=== PATIENT | male | born 1960 | race Caucasian/White ===

== ENCOUNTER → 2021-05-03 07:33 | Outpatient (CLI) | payer OTHER, SELFPAY ==
--- NOTE | 2021-05-03 07:36 | CT_ITS ---
STUDY: CT ABDOMEN AND PELVIS WITHOUT CONTRAST REASON FOR EXAM: Male, 61 years old. MICROSCOPIC HEMATURIA UNCERTAIN ETIOLOGY RADIATION DOSAGE (If Supplied By Facility): CTDIvol = ( 9.55 ) mGy, DLP = ( 443.95 ) mGycm TECHNIQUE: Transaxial images were obtained from the dome of the diaphragm to the symphysis pubis without oral contrast, and without intravenous contrast. Sagittal and coronal images were reconstructed. Individualized dose optimization techniques were used for this CT. COMPARISON: None. FINDINGS: The visualized portions of lung bases demonstrate mild atelectatic changes. The visualized portions of the heart are within normal limits. 7 mm low-density lesion in the right lobe of the liver and additional 1 cm lesion left lobe difficult to characterize and probably representing small cysts. Normal gallbladder and extrahepatic biliary system. Normal spleen. Normal pancreas. Normal bilateral adrenal glands. Normal right kidney. 3 mm calcification in the upper pole of the left kidney could be parenchymal or may represent small nonobstructing stone. No evidence of hydronephrosis. Normal visualized stomach. Normal small intestine. Fecal retention. Colonic diverticulosis without evidence of acute diverticulitis. The appendix is visualized and appears normal. Mild atherosclerotic calcifications of the abdominal aorta without evidence of aneurysm. Normal inferior vena cava. Normal retroperitoneum. Normal urinary bladder. Slightly prominent prostate. There is a left-sided inguinal hernia containing adipose tissue. There are diffuse degenerative changes of the visualized lumbar spine. CT/Abdomen/Pelvis without Cont IMPRESSION: 1. 3 mm left renal calcification could represent parenchymal calcification or less likely small nonobstructing stone without evidence of hydronephrosis. 2. Diverticulosis without evidence of acute diverticulitis. 3. Otherwise no focal acute inflammatory process. 4. Probable small liver cysts. 5. Small left inguinal hernia containing fat. Electronically Signed: Shyam Charlton MD at 10:30 EDT Tel , Service support ,
== END ==
PROVIDERS: PCP Family Medicine; Visit Provider Family Medicine
DX: R31.29 Other microscopic hematuria (principal)
CPT/HCPCS: 74176

== ENCOUNTER → 2022-06-12 | Outpatient (CLI) | payer OTHER, SELFPAY ==
[2022-06-12 12:40] LABS: Absolute Lymphocyte Count 1.53 X10^3/uL (0.83-4.51); Absolute Neutrophil Count 2.9 X10^3/uL (2.0-7.7); Basophil# 0.05 X10^3/uL; Eosinophil# 0.25 X10^3/uL; Eosinophils% 4.8 % (0-5); Hematocrit 47.3 % (40-54); Hemoglobin 15.3 g/dL (13.0-16.5); Lymphocyte # 1.53 X10^3/ul (0.83-4.51); Lymphocyte % 29.4 % (19-41); Mean Corp Hgb Conc 32.3 g/dL (32-36); Mean Corpuscular Volume 89.8 fL (80-94); Monocyte# 0.46 X10^3/uL; Monocyte% 8.8 % (0-10); NRBC Flagged by Analyzer 0.6 % (0-5); Neutrophil # 2.89 X10^3/uL (2.7-7.7); Neutrophil % 55.6 % (47-70); Platelet Count 263 K/mm3 (150-450); RBC Distribution Width CV 12.8 % (11.6-14.6); RBC Distribution Width SD 42.1 fl (35.1-43.9); Red Blood Count 5.27 M/mm3 (4.6-6.2); White Blood Count 5.2 K/mm3 (4.4-11.0)
[2022-06-12 13:01] LABS: ALB/GLOB Ratio 1.1 RATIO (0.9-2.4); AST(SGOT) 17 U/L (15-37); Alanine Aminotransfer ALT/SGPT 44 U/L (16-61); Alkaline Phosphatase 60 U/L (45-117); Anion Gap 6 (5-15); BUN 21 mg/dL (7-18); BUN/Creat Ratio 18.1 RATIO (10-20); Calcium,Total 8.8 mg/dL (8.5-10.1); Chloride 102 mmol/L (98-107); Cholesterol 254 mg/dL (200); Creatinine, Serum 1.16 mg/dL (0.70-1.30); EST Glomerular Filtration Rate 68 mL/min (>60); Est Glom Filt Rate - Afr Amer 82 mL/min (>60); Globulin 3.5 g/dL (2.2-4.2); Glucose 109 mg/dL (74-106); High Density Lipoprotein 47 mg/dL; PSA,Total - Annual Screen 3.19 ng/mL (0.00-4.00); Potassium 4.1 mmol/L (3.5-5.1); Protein, Total 7.5 g/dL (6.4-8.2); Sodium Level 136 mmol/L (136-145); Triglycerides 151 mg/dL; Very Low Density Lipoprotein 30 mg/dL (5-40)
== END | disposition home or self-care (01) ==
PROVIDERS: PCP Family Medicine; Visit Provider Family Medicine
DX: Z00.00 Encounter for general adult medical examination without abnormal findings (principal); Z12.5 Encounter for screening for malignant neoplasm of prostate
CPT/HCPCS: 36415; 80053; 80061; 83036; 84153; 85025; G0103

== ENCOUNTER → 2023-09-28 | Outpatient (CLI) | payer OTHER, SELFPAY ==
--- NOTE | 2023-09-28 | CYSPIN_PTH ---
PATIENT: MUSHTAQ ADAMS LOC: [facility] U#:[id number] AGE/SX: 63/M ROOM: RE09/28/[address]: Dr. Anupam Estevez, : 1960 BED: DIS: 09/28/2023 SPEC #: [id number] RECD: 09/29/23 08:37 STATUS: JERMAIN PANTOJARonny #: [id number] ISAIAS: 09/28/23 00:[address]: Anupam Estevez DEPT: CYTOLOGY RECD BY: Gauri Pratt Tissues: Urine Procedures: Pap Stain (control) Special Stain Group II Cytospin Fluid HEADER /OPERATION: Not noted PRE-OP DIAGNOSIS: Intermittent gross and microscopic hematuria TISSUE SUBMITTED: Urine for cytology DIAGNOSIS CYTOLOGY Urine for cytology (cytospin): Positive for malignant cells, high grade urothelial carcinoma (HGUC), Pao system Category V. See comment. DEBORA/ 09/29/23 COMMENT Clinical correlation and appropriate follow up are necessary. The Pao System for urine cytology diagnostic categorization was used in the evaluation of this case. Case has been reviewed in consultation with Dr. Lin who concurs with the above diagnosis. IDC:AM CYTOLOGY STUDY Slides are reviewed. CYTOLOGY GROSS Received is 40 ml of yellow-cloudy fluid labeled with the patient's name and and designated per the requisition as urine. Submitted for cytology preparation. mr 09/28/23 TC: 0 CPT: 73096
[2023-09-28 18:03] LABS: Cytology, Body Fluid / CSF SEE PATHOLOGY REPORT
== END | disposition home or self-care (01) ==
PROVIDERS: PCP Family Medicine; Visit Provider Family Medicine
DX: C68.9 Malignant neoplasm of urinary organ, unspecified (principal); R31.9 Hematuria, unspecified
CPT/HCPCS: 88108; 88313

== ENCOUNTER → 2023-10-04 | Outpatient (CLI) | payer OTHER, SELFPAY ==
[2023-10-04 17:16] LABS: PSA,Total - Annual Screen 1.72 ng/mL (0.00-4.00)
== END | disposition home or self-care (01) ==
LOC: LAB 16:18
PROVIDERS: PCP Family Medicine; Referring Provider Urology; Visit Provider Urology
DX: Z12.5 Encounter for screening for malignant neoplasm of prostate (principal)
CPT/HCPCS: 36415; 84153; G0103

== ENCOUNTER → 2023-10-06 | Outpatient (CLI) | payer OTHER, SELFPAY | END | disposition home or self-care (01) | PROVIDERS: PCP Family Medicine; Visit Provider Urology | DX: R30.0 Dysuria (principal) | CPT/HCPCS: 87086 ==

== ENCOUNTER → 2023-10-12 | Outpatient (CLI) | payer OTHER, SELFPAY ==
--- NOTE | 2023-10-12 12:50 | CT_ITS ---
STUDY: CT ABDOMEN AND PELVIS WITH AND WITHOUT CONTRAST REASON FOR EXAM: Male, 63 years old. GROSS HEMATURIA. Newly diagnosed bladder cancer. RADIATION DOSAGE (If Supplied By Facility): CTDIvol = ( 15.46 ) mGy, DLP = ( 2376.33 ) mGycm TECHNIQUE: Transaxial images were obtained from the dome of the diaphragm to the symphysis pubis without oral contrast. IV 100mL Isovue-300 was administered. Sagittal and coronal images were reconstructed. Individualized dose optimization techniques were used for this CT. COMPARISON: Comparison is made with prior study May 03, 2021. FINDINGS: There is a 4.2 mm noncalcified nodule in the peripheral lateral aspect of the right lower lobe. This is unchanged. Minimal scarring at the lung bases. Coronary artery calcification. Stable 7 mm cyst in the right lobe of the liver as well as a 1 cm cyst in the left lobe. Normal gallbladder and extrahepatic biliary system. Normal spleen. Normal pancreas. Normal bilateral adrenal glands. Normal right kidney. Normal left kidney. Stable 3 mm nonobstructive calculus in the upper pole calyx of the left kidney. Normal visualized stomach. Normal small intestine. There are multiple colonic diverticula consistent with diverticulosis. The appendix is visualized and appears normal. There is scattered atherosclerotic calcification of the abdominal aorta, without a demonstrated aneurysm. Normal inferior vena cava. Normal retroperitoneum. Several masses are seen along the lateral wall of the urinary bladder on the right side. The largest is at the base of the bladder and measures 2.8 cm x 3 cm. This also evidence of a 1.2 cm mass at the base of the bladder on the left side. Prostatic calcifications. Small bilateral inguinal hernias containing fat. There are diffuse degenerative changes of the visualized lumbar spine. Subchondral sclerosis at the L4-L5 level. CT/CT Abd/Pelvis W/WO Contrast IMPRESSION: Multiple urinary bladder masses. Stable 4 mm noncalcified nodule in the right lower lobe. Stable hepatic cysts. Diverticulosis. Electronically Signed: Jed Turk MD at 14:10 EDT ,
[2023-10-12 13:41] LABS: CREATININE FINGERSTICK 1.6 mg/dL (0.70-1.30)
== END | disposition home or self-care (01) ==
PROVIDERS: PCP Family Medicine; Referring Provider Urology; Visit Provider Urology
DX: R31.0 Gross hematuria (principal)
CPT/HCPCS: 74178; Q9967

== ENCOUNTER 2023-10-13 10:15 | Observation (INO) | payer OTHER, SELFPAY ==
--- NOTE | 2023-10-12 12:48 | EKG12_ITS ---
Test Reason : PRE OP Blood Pressure : / mmHG Vent. Rate : 089 BPM Atrial Rate : 089 BPM P-R Int : 140 ms QRS Dur : 092 ms QT Int : 364 ms P-R-T Axes : 080 101 036 degrees QTc Int : 442 ms Normal sinus rhythm Rightward axis Cannot rule out old IW GA Confirmed by Atif Mooney ([id number]), video editor TERI CORDERO ([id number]) on 10/13/2023 6:37:46 AM Referred By: César Ríos Confirmed By:Atif Mooney
[2023-10-13] VITALS (13 sets, daily range): BP systolic 96–126; BP diastolic 45–88; PULSE 61–84; RESP 16–18; TEMP 35.9–36.9; O2SAT 94–100; BMI 26.4
[2023-10-13] MEDS: Lactated Ringers 1,000 ML 15 ML IV (06:58)
--- NOTE | 2023-10-13 08:08 | DCINST_ITS ---
Discharge Instructions Diet Discharge Diet: No restrictions Activity Discharge Activity: Return to Normal Activity and May Not Drive (while taking narcotic pain medications.) Dressing / Incision Call your doctor if you observe: Fever of 101 or Higher Follow Up Care Please Follow Up With: César Ríos MD When: Call [phone] for an appointment Test Results: Test results from this visit will be discussed in further detail at your follow- up appointment, if applicable. Discharge Plan Admission Primary Reason for Your Visit: Resection of bladder tumor Attending Provider: César Ríos Primary Care Provider: Anupam Estevez Discharge Orders/Prescriptions Prescriptions: New ciprofloxacin HCl [Cipro] 500 mg tablet 500 mg PO BID Qty: 10 0RF ibuprofen 600 mg tablet 600 mg PO Q6H PRN (Reason: pain) Qty: 20 0RF phenazopyridine [Pyridium] 100 mg tablet 100 mg PO TID Qty: 15 0RF Continued fluticasone propion-salmeterol [Advair Diskus] 1 PUFF inhaler 1 puff inhalation BID albuterol sulfate [Ventolin HFA] 1 INHALER inhaler 1 - 2 puff inhalation Q4H PRN PRN (Reason: Asthma) bupropion HCl 150 mg tablet extended release 24 hr 150 mg PO DAILY omeprazole 20 mg capsule,delayed release(DR/EC) 20 mg PO DAILY PRN (Reason: acid reflux) Other Ambulatory Orders: 12 Lead EKG (Routine) Timeframe: 20231012 Location: None Selected Ordered By: Dr. Berny Silva Referrals / Follow Up: César Ríos MD [Med Staff - Active Staff] - Anupam Estevez DO [Primary Care Provider] - Disposition Disposition (needs filled in before D/C Order can be placed): Home, Self Care
--- NOTE | 2023-10-13 08:08 | HP.PCM_ITS ---
HPI - General General Date of Service: 10/13/23 Chief Complaint: Bladder cancer HPI Narrative MUSHTAQ ADAMS, is a 63 M who presents for a transurethral resection of a very large bladder tumor in the right lateral wall the bladder [facility] Medical History (Updated 10/11/23 @ 08:24 by Dora Gracia) Alcohol use Anxiety Arthritis Asthma Bladder disease Cancer Depression Heartburn History of stress test Non-smoker Tinnitus Home Medications albuterol sulfate 90 mcg/actuation aerosol inhaler (Ventolin HFA) 1 - 2 puff inhalation Q4H PRN PRN Asthma 08/18/16 [History Last Taken Unknown] fluticasone 250 mcg-salmeterol 50 mcg/dose blistr powdr for inhalation (Advair Diskus) 1 puff inhalation BID 08/18/16 [History Last Taken 08/25/16 05:30] bupropion HCl 150 mg 24 hr tablet, extended release 150 mg PO DAILY mood 10/11/23 [History Last Taken Unknown] omeprazole 20 mg capsule,delayed release 20 mg PO DAILY PRN acid reflux 10/11/23 [History Last Taken 10/13/23 05:30] ciprofloxacin HCl 500 mg tablet (Cipro) 500 mg PO BID #10 tabs 10/13/23 [Rx Last Taken Unknown] ibuprofen 600 mg tablet 600 mg PO Q6H PRN pain #20 tabs 10/13/23 [Rx Last Taken Unknown] phenazopyridine 100 mg tablet (Pyridium) 100 mg PO TID #15 tabs 10/13/23 [Rx Last Taken Unknown] Allergy/AdvReac Type Severity Reaction Status Date / Time No Known Allergies Allergy Verified 10/13/23 06:40 Surgical History (Updated 10/11/23 @ 08:11 by Dora Gracia) History of adenoidectomy History of colonoscopy History of shoulder surgery History of tonsillectomy Social History Smoking Status: Never smoker Vital Signs Vital Signs Vital Signs: 10/13/23 06:42 10/13/23 06:42 Temperature 98.3 F Temperature Source Temporal Pulse Rate 84 Respiratory Rate 16 Respiratory Pattern Normal Blood Pressure 106/88 H Blood Pressure Mean 94 Blood Pressure Source Monitor Blood Pressure Position Sitting Blood Pressure Location Left Arm Pulse Ox 98 Oxygen Delivery Method Room Air Weight Weight: 86.183 kg Body Mass Index (BMI) 26.4
[2023-10-13] MEDS: Cefazolin 2 GM in 0.9% Normal Saline (100mL Bag) 100 ML IV (08:16)
--- NOTE | 2023-10-13 08:25 | BLB_PTH ---
PATIENT: MUSHTAQ ADAMS LOC: [facility] U#:[id number] AGE/SX: 63/M ROOM: FL305 RE10/13/[address]: Dr. César Ríos MD : 1960 BED: 1 DIS: 10/14/2023 SPEC #: [id number] RECD: 10/13/23 10:16 STATUS: JERMAIN DOE #: [id number] ISAIAS: 10/13/23 08:[address]: César Ríos DEPT: SURGICAL PATHOLOGY RECD BY: Gauri Pratt ENTERED: 10/13/23 11:24 SP TYPE: TURB OTHR DR: Dr. Anupam Estevez, DO Tissues: Urinary bladder, NOS Procedures: Surgery Specimen Level V HEADER OPERATION: Transurethral resection of bladder tumor PRE-OP DIAGNOSIS: Bladder cancer TISSUE SUBMITTED: Bladder tumor MICROSCOPIC DIAGNOSIS Bladder tumor, Transurethral resection: Papillary urothelial carcinoma, invasive. See cancer summary in comment section. SJ/mr 10/14/23 COMMENT BLADDER CANCER (TUR) SUMMARY Procedure: Transurethral resection of bladder tumor (TURBT) Tumor site: Not specified Histologic type: Papillary urothelial carcinoma, invasive Associated epithelial lesions: None identified Histologic grade: Low grade (1-2/3) Tumor configuration: Papillary with focal area of endophytic pattern. Muscularis propria presence: muscularis propria (detrusor muscle) Present and free of tumor. Lymphvascular invasion: Not identified. Tumor extension: Tumor focally invades lamina propria (subepithelial connective tissue). Additional pathologic findings: Chronic inflammation. PATHOLOGIC STAGE: pT1 pNx pMx The above summary is in compliance with [employer] (CAP) Cancer Protocols Checklist and [place] Joint Committee on Cancer (AJCC), Staging Manual, 8th Ed. Case has been reviewed in consultation with Dr. Lin who concurs with the above diagnosis. IDC:AM MICROSCOPIC DESCRIPTION Slides are reviewed. GROSS DESCRIPTION Received in fixative is one container labeled with the patient's name and designated Bladder tumor. The specimen consists of multiple irregular fragments of pink-brown soft tissue that in aggregate measure 7.5 x 3.0 x 1.5 cm. The entire specimen is submitted in twelve cassettes. DEBORA/ 10/13/23 TC:0 CPT: 95655
[2023-10-13] MEDS: MitoMYcin 40 MG in Syringe 1 EACH 2400 MG INSTILLAT (09:49)
--- NOTE | 2023-10-13 09:56 | OP.PCM_ITS ---
Report of Operation Date of Procedure: 10/13/23 Pre-Operative Diagnosis: Large bladder tumor extensive throughout the bladder Post-Operative Diagnosis: The same Surgery/Procedure Performed:: Transurethral resection of a very large bladder tumor instillation Mitomycin-C Description of Surgical Findings:: The gentleman who presented to my office with history of gross hematuria, cytology was positive, on cystoscopy he had a very large tumor starting in the midline of the bladder working the way extensively all the way across to the right lateral wall the bladder up to the dome of the bladder and deep posterior to the bladder so today he presents for resection this can be of a large resection. Patient was taken back to the operating room at a smooth induction of anesthesia he was placed in dorsolithotomy position. The penis and testicles were prepped and draped in usual sterile fashion went into the bladder with a 26 Sinhala continuous-flow resectoscope inspected the bladder and the left and right ureteral orifice were uninvolved but he had an extensive tumor starting in the midline posterior of the bladder working its way all the way laterally all the way up to the dome and all the way posteriorly the resection site was extensive probably about 7 cm x 6 cm x 3 cm in total size. Basically just a large carpet of tumor working its way from the mid line the bladder all the way laterally all the way to the dome although a posterior I started at the edge of the tumor and started resecting down to the bladder muscle fibers as I went laterally the tumor was we did an systematic fashion but I got as a got laterally then the tumor got more difficult to resect as it is very difficult to reach the tumor with the resectoscope at the posterior bladder manually extensively and then I then went to the dome and got even harder to push the bladder dome down to reach the tumor with the resectoscope bladder pressure put into the bladder to get it down and resecting the bladder tumor is extensively large resection that there was a several areas of the bladder muscle was thinned out pretty significantly and also in the posterior area is very difficult at the end extensive amount of bleeding from other resection at the take a long time to cauterize the bleeder we did use suction to help put the resectoscope with suction this did help with visualization eventually was able to get all the bleeding stopped as best as I could tell it was a complete resection but was such a large tumor very possible and likely may have some small tumor still in the bladder the just were not visible not seen because of the extensiveness of this tumor so I will plan to do a second stage resection on him in about a month 4 to 6 weeks for another check at the end of the resection all the tumors were Ellik out of the bladder hemostasis was obtained put a 20 Sinhala catheter in the bladder and we put Mitomycin-C in the bladder for an hour of post resection instillation and he will be kept in the hospital overnight for observation because of the deep resection and then we will plan to send him home with a catheter for about 10 days to let the resection heal up. Patient anesthetic was reversed he is taken back to the PACU in good condition. Surgeon: César Ríos Type of Anesthesia: General Drains: 20fr Estimated Blood Loss (mL): 100 Admit VTE Documentation VTE Present on Admission: No VTE Mechan Device Prophylaxis: SCD's VTE Pharm Prophylaxis ordered?: No
--- NOTE | 2023-10-13 11:13 | SUR.PHASEI ---
1102 CLAMP REMOVED FROM JAMES CATHETER, RED URINE IMMEDIATELY BEGINS DRAINING
[2023-10-13] MEDS: Ketorolac 15 MG/ML Vial IV (11:58)
[2023-10-13] MEDS: 0.9% Normal Saline (1000mL) 1,000 ML 125 ML IV ×2 (12:35→20:20)
[2023-10-13] MEDS: Acetaminophen 325 MG Tablet 650 MG PO ×2 (16:49→20:57)
[2023-10-13] MEDS: Ciprofloxacin 400 MG/200 ML BAG 200 MG IV (20:58)
[2023-10-14 04:03] VITALS: BP 109/55; PULSE 73; RESP 18; TEMP 37.2; O2SAT 92
[2023-10-14] MEDS: 0.9% Normal Saline (1000mL) 1,000 ML 125 ML IV (04:04)
[2023-10-14] MEDS: Acetaminophen 325 MG Tablet 650 MG PO (04:08)
--- NOTE | 2023-10-14 07:37 | PCM.PN.GU ---
Subjective Subjective Status post transurethral resection of a very large bladder tumor he to go home with a Bryson catheter to leg bag and large bag. Objective Data Objective Data Vital Signs: Vital Signs Temp Pulse Resp BP Pulse Ox O2 Del Method 98.9 F 73 18 109/55 L 92 Room Air 10/14/23 04:03 10/14/23 04:03 10/14/23 04:03 10/14/23 04:03 10/14/23 04:03 10/14/23 04:03 Oxygen Delivery Method Room Air Weight: 86.2 kg Body Mass Index (BMI) 26.4 Intake & Output: Intake and Output for Last 24 Hours 10/12/23 10/13/23 10/14/23 23:59 23:59 23:59 Intake Total 4376.92 / 4376.92 1758.33 / 1758.33 Output Total 4300 / 4300 2300 / 2300 Balance 76.92 / 76.92 -541.67 / -541.67
[2023-10-14 08:04] VITALS: BP 107/60; PULSE 77; RESP 16; TEMP 36.6; O2SAT 96
[2023-10-14 08:07] VITALS: BP 110/78; PULSE 77; RESP 16; TEMP 36.6; O2SAT 98
[2023-10-14] MEDS: Tolterodine Tartrate 4 MG CAP.SA PO (09:40)
[2023-10-14] MEDS: Ciprofloxacin 400 MG/200 ML BAG 200 MG IV (09:40)
[2023-10-14] MEDS: buPROPion (XL) 150 MG TABLET.XL PO (09:41)
--- NOTE | 2023-10-14 10:47 | CASEMGMT ---
BENI GARRIDO NOTE: Pt being discharged. RN CM to room. Pt resting in bed. @ bedside. They state F/C teaching has been completed and they feel comfortable w/managing it. They deny having any discharge planning needs or concerns. Hermes BSN RN CM
[2023-10-14] MEDS: oxyCODONE 5 MG Tablet PO (10:56)
== END 2023-10-14 11:51 | disposition home or self-care (01) ==
LOC: SDC 11:50 → MS3 11:50
PROVIDERS: Admitting Provider Urology; PCP Family Medicine; Referring Provider Urology; Visit Provider Urology
PROC: 0T5B8ZZ Destruction of Bladder, Via Natural or Artificial Opening Endoscopic (ICD-10-PCS; CPT 51720; principal; 2023-10-13 08:15)
DX: C67.9 Malignant neoplasm of bladder, unspecified (principal); M19.90 Unspecified osteoarthritis, unspecified site; J45.909 Unspecified asthma, uncomplicated; F32.A Depression, unspecified; Z79.899 Other long term (current) drug therapy; F41.9 Anxiety disorder, unspecified
CPT/HCPCS: 52240; 51720; 00912; 88307; 93005; 96361; 96365; 96366; 97802; 99221; J7030; J9280; G0378; J0744; J2405

== ENCOUNTER 2023-11-19 08:18 | Day surgery (SDC) | payer OTHER, SELFPAY ==
[2023-11-19] VITALS (10 sets, daily range): BP systolic 113–141; BP diastolic 64–81; PULSE 70–93; RESP 16; TEMP 36.1–37; O2SAT 94–100; BMI 26.2
--- NOTE | 2023-11-19 | IMM_PTH ---
PATIENT: MUSHTAQ ADAMS [place] [facility] [id number] AGE/SX: 63/M ROOM: RE11/19/[address]: Dr. César Ríos MD : 1960 BED: DIS: 11/19/2023 SPEC #: [id number] RECD: 11/22/23 13:38 STATUS: JERMAIN REQ #: [id number] ISAIAS: 11/19/23 00:[address]: César Ríos DEPT: IMMUNOHISTOCHEMISTRY RECD BY: Andreas Baez ENTERED: 11/22/23 13:39 SP TYPE: IMMUNO OTHR DR: Dr. Anupam Estevez, DO Tissues: Urinary bladder, NOS Procedures: SMA (add) CD31 (add) CK20 (add) CK7 (add) CK8 (add) DESMIN (add) KI-67 (add) SMM (add) FACTOR VIII (add) Pankeratin (initial) PHYSICIAN & INSTITUTION [place] [id number] SPECIMEN INFORMATION: Tissue Source: Bladder tumor Clinical Info: Bladder cancer Specimen Number: [id number] CPT code: 14058,24867d9 METHODOLOGY: Deparaffinized sections of prefer/formalin-fixed tissue or PAP/DQ stained slides are incubated with monoclonal/polyclonal antibodies/oligonucleotide probes. Localization is made via biotin free immunoperoxidase method. Appropriate controls are performed and reacted as expected. Results on target cell population are indicated in the following table: RESULTS: ANTIBODY / CLONE RESULT AE1-3 (AE1/AE3/PCK26) positive CK7 (OV-TL12/30) negative, rare CK8 (54sqmcQ13) positive, rare CK20 (KS20.8) negative CD31 (DEVIN/70A) negative Factor VIII (R Ag) negative Actin (1A4) negative Myosin (simms1) negative Desmin (CE-R-11) negative Ki-67 (30-9) positive, 15% P53 (DO-7) negative, null pattern These tests were developed and their performance characteristics determined by [facility]. They may not have been cleared or approved by the U.S. Food and Drug Administration. The FDA has determined that such clearance or approval is not necessary. The above immunohistochemical/dualISH markers are ordered and reviewed by the Pathologist. INTERPRETATION: Bladder tumor, transurethral resection: Rare atypical epithelial cells present. Necortic tissue debris. AM/mr 11/23/23
[2023-11-19] MEDS: Lactated Ringers 1,000 ML 15 ML IV ×2 (09:04→11:49)
[2023-11-19] MEDS: Cefazolin 2 GM in 0.9% Normal Saline (100mL Bag) 100 ML IV (09:56)
--- NOTE | 2023-11-19 10:04 | DCINST_ITS ---
Discharge Instructions Diet Discharge Diet: No restrictions Activity Discharge Activity: Return to Normal Activity and May Not Drive (while taking narcotic pain medications.) Dressing / Incision Call your doctor if you observe: Fever of 101 or Higher Follow Up Care Please Follow Up With: César Ríos MD When: Call [phone] for an appointment Test Results: Test results from this visit will be discussed in further detail at your follow- up appointment, if applicable. Discharge Plan Admission Primary Reason for Your Visit: turbt Attending Provider: César Ríos Primary Care Provider: Anupam Estevez Discharge Orders/Prescriptions Prescriptions: New tamsulosin [Flomax] 0.4 mg capsule 0.4 mg PO DAILY Qty: 10 0RF phenazopyridine [Pyridium] 200 mg tablet 200 mg PO TID PRN (Reason: burning) Qty: 15 0RF ciprofloxacin HCl [Cipro] 500 mg tablet 500 mg PO BID Qty: 10 0RF Continued fluticasone propion-salmeterol [Advair Diskus] 1 PUFF inhaler 1 puff inhalation BID albuterol sulfate [Ventolin HFA] 1 INHALER inhaler 1 - 2 puff inhalation Q4H PRN PRN (Reason: Asthma) bupropion HCl 150 mg tablet extended release 24 hr 150 mg PO DAILY omeprazole 20 mg capsule,delayed release(DR/EC) 20 mg PO DAILY PRN (Reason: acid reflux) ibuprofen 600 mg tablet 600 mg PO Q6H PRN (Reason: pain) Qty: 20 0RF Referrals / Follow Up: César Ríos MD [Med Staff - Active Staff] - Anupam Estevez DO [Primary Care Provider] - Disposition Disposition (needs filled in before D/C Order can be placed): Home, Self Care
--- NOTE | 2023-11-19 10:04 | PCM.HP.STD ---
HPI - General General Date of Service: 11/19/23 Chief Complaint: Bladder cancer HPI Narrative MUSHTAQ ADAMS, is a 63 M who presents for second stage transurethral section of the bladder cancer had a large tumor resected before his extensive mount of resection organ to do a second look TUR BT [facility] Medical History Alcohol use Anxiety Arthritis Asthma Bladder disease Cancer Depression Heartburn History of stress test Non-smoker Tinnitus Home Medications albuterol sulfate 90 mcg/actuation aerosol inhaler (Ventolin HFA) 1 - 2 puff inhalation Q4H PRN PRN Asthma 08/18/16 [History Last Taken Unknown] fluticasone 250 mcg-salmeterol 50 mcg/dose blistr powdr for inhalation (Advair Diskus) 1 puff inhalation BID 08/18/16 [History Last Taken 08/25/16 05:30] bupropion HCl 150 mg 24 hr tablet, extended release 150 mg PO DAILY mood 10/11/23 [History Last Taken Unknown] omeprazole 20 mg capsule,delayed release 20 mg PO DAILY PRN acid reflux 10/11/23 [History Last Taken 11/19/23] ibuprofen 600 mg tablet 600 mg PO Q6H PRN pain #20 tabs 10/13/23 [Rx Last Taken Unknown] ciprofloxacin HCl 500 mg tablet (Cipro) 500 mg PO BID #10 tabs 11/19/23 [Rx Last Taken Unknown] phenazopyridine 200 mg tablet (Pyridium) 200 mg PO TID PRN burning 15 doses #15 tabs 11/19/23 [Rx Last Taken Unknown] tamsulosin 0.4 mg capsule (Flomax) 0.4 mg PO DAILY #10 caps 11/19/23 [Rx Last Taken Unknown] Allergy/AdvReac Type Severity Reaction Status Date / Time No Known Allergies Allergy Verified 11/09/23 14:58 Surgical History (Updated 11/09/23 @ 15:03 by Christine Mckinley) H/O transurethral resection of bladder tumor (TURBT) History of adenoidectomy History of colonoscopy History of shoulder surgery History of tonsillectomy Social History Smoking Status: Never smoker Vital Signs Vital Signs Vital Signs: 11/19/23 08:50 11/19/23 08:50 Temperature 98.6 F Temperature Source Temporal Pulse Rate 78 Respiratory Rate 16 Respiratory Pattern Normal Blood Pressure 119/74 Blood Pressure Mean 89 Blood Pressure Source Monitor Blood Pressure Position Semi-Fowlers Blood Pressure Location Left Arm Pulse Ox 100 Oxygen Delivery Method Room Air Weight Weight: 85.4 kg Body Mass Index (BMI) 26.2
--- NOTE | 2023-11-19 10:15 | BLB_PTH ---
PATIENT: MUSHTAQ ADAMS LOC: [facility] [place] U#:[id number] AGE/SX: 63/M ROOM: RE11/19/[address]: Dr. César Ríos MD : 1960 BED: DIS: 11/19/2023 SPEC #: [id number] RECD: 11/19/23 11:00 STATUS: JERMAIN DOE #: [id number] ISAIAS: 11/19/23 10:[address]: César Ríos DEPT: SURGICAL PATHOLOGY RECD BY: Janes Cadena ENTERED: 11/19/23 11:41 SP TYPE: TURB OTHR DR: Dr. Anupam Estevez, DO Tissues: Urinary bladder, NOS Procedures: Surgery Specimen Level V HEADER OPERATION: Transurethral resection of bladder tumor PRE-OP DIAGNOSIS: Bladder cancer TISSUE SUBMITTED: Bladder tumor MICROSCOPIC DIAGNOSIS Urinary bladder, transurethral resection: Rare atypical epithelial cells present. Extensive cellular necrosis. Acute and chronic inflammation. AM/mr 11/23/2023 COMMENT Immunohistochemistry ([id number]) supports the above diagnosis. MICROSCOPIC DESCRIPTION Slides are reviewed. GROSS DESCRIPTION Received in fixative is one container labeled with the patient's name and designated Bladder tumor. The specimen consists of multiple irregular fragments of light langford soft tissue that in aggregate measure 2.0 x 1.5 x 0.3 cm. The specimen is totally submitted in one cassette. DEBORA/ 11/19/2023 TC:0 CPT: 85415
[2023-11-19] MEDS: MitoMYcin 40 MG in Syringe 1 EACH 2400 MG INSTILLAT (10:27)
--- NOTE | 2023-11-19 10:30 | PCM.OPRPT ---
Report of Operation Date of Procedure: 11/19/23 Pre-Operative Diagnosis: Bladder cancer second stage resection Post-Operative Diagnosis: The same Surgery/Procedure Performed:: Transurethral section of bladder tumor instillation Mitomycin-C Description of Surgical Findings:: Patient presented to the hospital for treatment of a tumor that was found in the bladder with a very large bladder tumor. Patient understands is possible it may not be able to resect the entire tumor. Patient also understands is possible that the patient may need multiple procedures or more invasive procedures to cure him of this cancer. Patient was taken back to the operating room after smooth induction of anesthesia the patient was placed supine on the table. The patient was placed in dorsolithotomy position. The urethra and genitals prepped and draped in usual sterile fashion. I went into the bladder with a 30 degree lens and a cystoscope was performed and identified the tumor the tumors which was about 5 centimeters in size and occupying mostly the lateral wall of the bladder. I then switched over to the 70 degree lens and inspected the rest of the bladder with a 70 degree lens to make sure there is no other tumors in the bladder and to identify all the tumor locations. The right and left ureteral orifice were identified. The tumor was not involved in the ureteral orifices. I then placed the Olympus bipolar resectoscope with a large loop into the bladder. I then started resected the tumor and started superficially shaving small little pieces working my way to the base of the tumor. As I went along I then cauterize any bleeders that were encountered during the resection. The tumor pieces were then flushed out of the bladder and continued resecting the tumor until finally I got down to the base of the tumor and the muscle of the bladder was then identified a small little bit of muscle was taken with the resection. The Ellik was used then to evacuate all the tumor pieces out of the bladder. I then cauterized extensively the tumor base and also circumferentially around where the tumor was. Again we made sure to evacuate all the pieces out the bladder. I made sure there was no more bleeding from the base of the bladder and then over the tumor pieces were then evacuated out and sent off as a specimen. After the resection of the entire tumor was completed then treatment with Mitomycin-C was performed. We then placed the catheter in the bladder and the patient was taken back to the PACU in stable condition. Surgeon: César Ríos Type of Anesthesia: General Drains: 18 fr, Admit VTE Documentation VTE Present on Admission: No VTE Mechan Device Prophylaxis: SCD's VTE Pharm Prophylaxis ordered?: No
[2023-11-19] MEDS: Ketorolac 15 MG/ML Vial IV (10:54)
== END 2023-11-19 14:56 | disposition home or self-care (01) ==
LOC: SDC 08:23 → AC 08:23
PROVIDERS: PCP Family Medicine; Referring Provider Urology; Visit Provider Urology
PROC: 0T5B8ZZ Destruction of Bladder, Via Natural or Artificial Opening Endoscopic (ICD-10-PCS; CPT 51720; principal; 2023-11-19 10:05)
DX: C67.9 Malignant neoplasm of bladder, unspecified (principal); J45.909 Unspecified asthma, uncomplicated; N32.89 Other specified disorders of bladder; N30.20 Other chronic cystitis without hematuria
CPT/HCPCS: 52240; 00912; 87086; 88307; 88341; 88342; J7120; J9280; J2405

== ENCOUNTER → 2023-12-07 | Outpatient (CLI) | payer OTHER, SELFPAY | END | disposition home or self-care (01) | PROVIDERS: PCP Family Medicine; Visit Provider Urology | DX: R31.0 Gross hematuria (principal) | CPT/HCPCS: 87077; 87086; 87088; 87186 ==

== ENCOUNTER → 2024-05-19 | Outpatient (CLI) | payer OTHER, SELFPAY ==
[2024-05-19 12:23] LABS: Color, Urine Yellow (Yellow); Glucose, Dipstick Normal (Normal); Ketone-Dipstick Negative (Negative); Leukocyte Esterase-Dipstick Negative /ul (Negative); Nitrite-Dipstick Negative (Negative); Occult Blood-Urine Negative /ul (Negative); Protein-Dipstick Negative (Negative); Specific Gravity, Urine 1.005 (1.002-1.030); Urine Bilirubin Dipstick Negative (Negative); Urine Clarity Clear (Clear); Urine Urobilinogen Normal (Normal)
[2024-05-19 12:42] LABS: Absolute Lymphocyte Count 1.32 X10^3/uL (0.83-4.51); Absolute Neutrophil Count 3.5 X10^3/uL (2.0-7.7); Basophil# 0.04 X10^3/uL; Basophil% 0.7 % (0-1); Eosinophil# 0.44 X10^3/uL; Eosinophils% 7.5 % (0-5); Hematocrit 42.1 % (40-54); Hemoglobin 13.6 g/dL (13.0-16.5); Lymphocyte # 1.32 X10^3/ul (0.83-4.51); Lymphocyte % 22.4 % (19-41); Mean Corp Hgb Conc 32.3 g/dL (32-36); Mean Corpuscular Hgb 28.5 pg (27.0-32.0); Mean Corpuscular Volume 88.3 fL (80-94); Mean Platelet Vol. 9.3 fl (6.2-12.0); Monocyte# 0.62 X10^3/uL; Monocyte% 10.5 % (0-10); NRBC Flagged by Analyzer 0 % (0-5); Neutrophil # 3.46 X10^3/uL (2.7-7.7); Neutrophil % 58.6 % (47-70); Platelet Count 226 K/mm3 (150-450); RBC Distribution Width CV 13.9 % (11.6-14.6); RBC Distribution Width SD 45.3 fl (35.1-43.9); Red Blood Count 4.77 M/mm3 (4.6-6.2); White Blood Count 5.9 K/mm3 (4.4-11.0)
[2024-05-19 13:04] LABS: ALB/GLOB Ratio 1.3 RATIO (0.9-2.4); AST(SGOT) 19 U/L (15-37); Alanine Aminotransfer ALT/SGPT 27 U/L (16-61); Albumin, Serum 4.3 g/dL (3.2-5.0); Alkaline Phosphatase 71 U/L (45-117); Anion Gap 5 (5-15); BUN 20 mg/dL (7-18); BUN/Creat Ratio 18.7 RATIO (10-20); Chloride 103 mmol/L (98-107); Cholesterol 269 mg/dL (200); Creatinine, Serum 1.07 mg/dL (0.70-1.30); EST Glomerular Filtration Rate 74 mL/min (>60); Est Glom Filt Rate - Afr Amer 89 mL/min (>60); Globulin 3.3 g/dL (2.2-4.2); Glucose 100 mg/dL (74-106); High Density Lipoprotein 51 mg/dL; PSA,Total- Diagnostic 2.07 ng/mL (0.0-4.0); Potassium 4.2 mmol/L (3.5-5.1); Protein, Total 7.6 g/dL (6.4-8.2); Sodium Level 137 mmol/L (136-145); Triglycerides 103 mg/dL; Very Low Density Lipoprotein 21 mg/dL (5-40)
[2024-05-19 13:32] LABS: Hemoglobin A1c 5.9 % (3.8-5.6)
== END | disposition home or self-care (01) ==
LOC: MTLAB 09:58
PROVIDERS: PCP Family Medicine; Referring Provider Family Medicine; Visit Provider Family Medicine
DX: Z00.00 Encounter for general adult medical examination without abnormal findings (principal); R73.01 Impaired fasting glucose; R30.0 Dysuria; Z85.51 Personal history of malignant neoplasm of bladder
CPT/HCPCS: 36415; 80053; 80061; 81002; 83036; 84153; 85025; 87086

== ENCOUNTER 2024-07-19 06:38 | Day surgery (SDC) | payer OTHER, SELFPAY ==
[2024-07-19] VITALS (8 sets, daily range): BP systolic 113–141; BP diastolic 68–103; PULSE 68–82; RESP 16–20; TEMP 36.7–37.1; O2SAT 92–98; BMI 27.6
--- NOTE | 2024-07-19 08:02 | PCM.HP.STD ---
HPI - General General Date of Service: 07/19/24 Chief Complaint: bladder cancer HPI Narrative MUSHTAQ ADAMS, is a 64 M who presents for cysto biopsy of lesion and fulguration, h/o bladder cancer. s/p resection of v large mass and BCG therapy PFSH Medical History Loss of hearing Wears glasses Bladder disease Tinnitus Cancer Anxiety Depression Arthritis Heartburn Non-smoker Asthma History of stress test Home Medications ?Medication ?Instructions ?Recorded ?Last Taken ?Type albuterol sulfate 90 mcg/actuation 1 - 2 puff inhalation Q4H PRN PRN 08/18/16 Unknown History aerosol inhaler (Ventolin HFA) Asthma fluticasone 250 mcg-salmeterol 50 1 puff inhalation BID 08/18/16 07/19/24 History mcg/dose blistr powdr for inhalation (Advair Diskus) omeprazole 20 mg capsule,delayed 20 mg PO DAILY PRN acid reflux 10/11/23 07/19/24 History release ibuprofen 600 mg tablet 600 mg PO Q6H PRN pain #20 tabs 10/13/23 Unknown Rx Allergy/AdvReac Type Severity Reaction Status Date / Time No Known Allergies Allergy Verified 07/19/24 07:09 Surgical History H/O transurethral resection of bladder tumor (TURBT) History of colonoscopy History of tonsillectomy History of adenoidectomy History of shoulder surgery Social History Smoking Status: Never smoker Vital Signs Vital Signs Vital Signs: 07/19/24 07:16 07/19/24 07:16 Temperature 98.8 F Temperature Source Temporal Pulse Rate 68 Respiratory Rate 16 Respiratory Pattern Normal Blood Pressure 141/68 H Blood Pressure Mean 92 Blood Pressure Source Monitor Blood Pressure Position Semi-Fowlers Blood Pressure Location Right Arm Pulse Ox 98 Oxygen Delivery Method Room Air Weight Weight: 90 kg Body Mass Index (BMI) 27.6
[2024-07-19] MEDS: 0.9% Normal Saline (1000mL) 1,000 ML 15 ML IV (08:15)
--- NOTE | 2024-07-19 08:45 | BLA_PTH ---
PATIENT: MUSHTAQ ADAMS LOC: [facility] – [place] U#:[id number] AGE/SX: 64/M ROOM: RE07/19/[address]: Dr. César Ríos MD : 1960 BED: DIS: 07/19/2024 SPEC #: [id number] RECD: 07/19/24 11:21 STATUS: JERMAIN DOE #: [id number] ISAIAS: 07/19/24 08:[address]: César Ríos DEPT: SURGICAL PATHOLOGY RECD BY: Janes Cadena ENTERED: 07/19/24 12:13 SP TYPE: BLADDER BX OTHR DR: Dr. Anupam Estevez, DO Tissues: Urinary bladder, NOS Procedures: Surgery Specimen Level IV HEADER OPERATION: Fulguration, cysto, biopsy PRE-OP DIAGNOSIS: Bladder cancer TISSUE SUBMITTED: Bladder lesion MICROSCOPIC DIAGNOSIS Bladder lesion, biopsy: A fragment of urothelial mucosa with chronic inflammation. Negative for malignancy. See comment. SJ.mr 07/20/2024 COMMENT Epithelium is denuded in most of the specimen. Correlation with clinical, cystoscopic findings and appropriate follow up are necessary. MICROSCOPIC DESCRIPTION Slides are reviewed. GROSS DESCRIPTION Received in fixative is one container labeled with the patient's name and designated Bladder lesion. The specimen consists of one irregular fragment of light langford soft tissue that measures 0.2 x 0.2 x 0.1 cm. The specimen is totally submitted in one cassette. 07/19/2024 TC:3 CPT:42243
--- NOTE | 2024-07-19 08:50 | PRE.ANES_ITS ---
ASA Classification* ASA Classification ASA Classification: 2 Assessment & Plan Anesthesia* Anesthesia Assessment Anesthesia Assessment: Discussed sedation and/or anesthesia options, risks, benefits, and alternatives with patient/parents/legal guardian/POA. Questions invited. The patient/parents/legal guardian/POA seems to understand and agrees to proceed with anesthesia plan. Reviewed the physical assessment, medical history, allergy history and patient home medications list prior to surgery/procedure/anesthetic and documented any changes. Performed airway and anesthesia risk assessments. Anesthesia Type Anesthesia Type: General Anesthesia Focused Assessment* Temperature: 98.8 F Pulse Rate: 68 Blood Pressure: 141/68 Respiratory Rate: 16 Pulse Ox: 98 Airway Assessment Mouth opens: >3 cm Mallampati Score: II Focused Labs Anesthesia Preop lab: CBC WBC 5.9 K/mm3 (4.4-11.0) 05/19/24 10:09 RBC 4.77 M/mm3 (4.6-6.2) 05/19/24 10:09 Hgb 13.6 g/dL (13.0-16.5) 05/19/24 10:09 Hct 42.1 % (40-54) 05/19/24 10:09 Plt Count 226 K/mm3 (150-450) 05/19/24 10:09 CHEMISTRY Potassium 4.2 mmol/L (3.5-5.1) 05/19/24 10:09 Sodium 137 mmol/L (136-145) 05/19/24 10:09 BUN 20 mg/dL (7-18) H 05/19/24 10:09 Creatinine 1.07 mg/dL (0.70-1.30) 05/19/24 10:09 Glucose 100 mg/dL (74-106) 05/19/24 10:09 COAG Pre-Assessment Diagnosis/Proposed Procedure Planned Operative Procedure(s): CYSTO FULGERATION WITH BIOPSY Anesthesia History 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 24 HOURS HAD MUSCLE STIFFNESS Cholinesterase deficiency No 07/03/24 10:24 You/Your Family Experience No 12/23/24 10:24 fever (hyperthermia) with Relationship Recent Exposure to Contagious No 07/19/24 07:16 Disease Does patient have nerve No 07/03/24 10:24 stimulator Patient instructed to have device shut off --Does patient have Pacemaker No 07/19/24 07:16 or ICD? When Was Last Pacemaker Check QUESTION #4 FULL TEXT: You/Your Family Experience fever (hyperthermia) with Anesthesia Last Oral Intake Last Oral intake: Last Oral Intake NPO since 05:15 07/19/24 07:16 Meds taken in AM with sips of Yes 07/19/24 07:16 water? Meds patient instructed to take am of surgery PONV PONV - catalyst operator gasoline: PONV - catalyst operator gasoline Female No 07/03/24 10:24 HX of Motion Sickness No 07/03/24 10:24 HX of N/V After Surgery No 07/03/24 10:24 Non-Smoker Yes 07/03/24 10:24 Duration of Surgery greater Yes 07/03/24 10:24 than 60 minutes Number of Risk Factors 2 07/03/24 10:24 PONV Score Moderate Risk 07/03/24 10:24 Height & Weight Height & Weight: Anesthesia: Height & Weight Height 5 ft 11 in 07/19/24 07:16 Weight: 90 kg 07/19/24 07:16 Body Mass Index (BMI) 27.6 07/19/24 07:16 Respiratory Assessment Respiratory Assessment - catalyst operator gasoline: Respiratory Tract Infection Hx - catalyst operator gasoline Hx Respiratory Tract Infection No 07/03/24 10:24 STOP Sleep Apnea STOP Sleep Apnea - catalyst operator gasoline: STOP Sleep Apnea - catalyst operator gasoline Hx Hypertension No 07/03/24 10:24 Hx Sleep Apnea No 07/03/24 10:24 CPAP BIPAP Do you snore loudly (louder No 07/03/24 10:24 than talking or can be heard Do you often feel tired/ Yes 07/03/24 10:24 fatigued/ sleepy during daytime? Has anyone observed you stop No 07/03/24 10:24 breathing during sleep? STOP Results Negative 07/03/24 10:24 QUESTION #5 FULL TEXT : Do you snore loudly (louder than talking or can be heard through closed doors)? 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 Specify any problems Hx of Preganancy in last 3 N/A 07/03/24 10:24 Months Nurse Filling Out Transfusion DSCHRIBER 07/03/24 10:24 & Questions: Date: 07/03/24 07/03/24 10:24 Time: :07/03/24 10:24 Patient unable to answer at this time (ie. confused, unrespo /Reproduction History /Reproductive History - catalyst operator gasoline: /Reproductive Hx- catalyst operator gasoline Hx Now No 07/03/24 10:24 Gestational Age (in weeks): EDC: Hx Hx Para Hx Section SAB No 07/03/24 10:24 Active Medications Active Medications: Current Medications Generic Name Dose Route Start Last Admin Trade Name Freq PRN Reason Stop Dose Admin Sodium Chloride 1,000 mls @ 15 mls/hr 07/19/24 08:15 07/19/24 08:15 IV 07/22/24 02:54 15 mls/hr .Q48H BERNARDO Administration Protocol PFS Medical History Loss of hearing Wears glasses Bladder disease Tinnitus Cancer Anxiety Depression Arthritis Heartburn Non-smoker Asthma History of stress test Home Medications ?Medication ?Instructions ?Recorded ?Last Taken ?Type albuterol sulfate 90 mcg/actuation 1 - 2 puff inhalation Q4H PRN PRN 08/18/16 Unknown History aerosol inhaler (Ventolin HFA) Asthma fluticasone 250 mcg-salmeterol 50 1 puff inhalation BID 08/18/16 07/19/24 History mcg/dose blistr powdr for inhalation (Advair Diskus) omeprazole 20 mg capsule,delayed 20 mg PO DAILY PRN acid reflux 10/11/23 07/19/24 History release ibuprofen 600 mg tablet 600 mg PO Q6H PRN pain #20 tabs 10/13/23 Unknown Rx Allergy/AdvReac Type Severity Reaction Status Date / Time No Known Allergies Allergy Verified 07/19/24 07:09 Surgical History H/O transurethral resection of bladder tumor (TURBT) History of colonoscopy History of tonsillectomy History of adenoidectomy History of shoulder surgery Social History Smoking Status: Never smoker Review of Systems (Anesthesia) ROS Narrative System reviewed and no additional complaints, except as documented.
--- NOTE | 2024-07-19 09:00 | DCINST_ITS ---
Discharge Instructions Diet Discharge Diet: No restrictions DC O2, CPAP, BIPAP needs Home O2 Discharge instructions: No Dressing / Incision Discharge Activity: Return to Normal Activity and May Not Drive (while taking narcotic pain medications.) Dressing / Incision Call your doctor if you observe: Fever of 101 or Higher Follow Up Care Please Follow Up With: César Ríos MD When: Call [phone] for an appointment Test Results: Test results from this visit will be discussed in further detail at your follow- up appointment, if applicable. Discharge Plan Admission Primary Reason for Your Visit: cysto biopsy fulguration Attending Provider: César Ríos Primary Care Provider: Anupam Estevez Instructions Print Language: Bermudian Discharge Orders/Prescriptions Prescriptions: Continued fluticasone propion-salmeterol [Advair Diskus] 1 PUFF inhaler 1 puff inhalation BID albuterol sulfate [Ventolin HFA] 1 INHALER inhaler 1 - 2 puff inhalation Q4H PRN PRN (Reason: Asthma) omeprazole 20 mg capsule,delayed release(DR/EC) 20 mg PO DAILY PRN (Reason: acid reflux) ibuprofen 600 mg tablet 600 mg PO Q6H PRN (Reason: pain) Qty: 20 0RF Referrals / Follow Up: César Ríos MD [Med Staff - Active Staff] - Anupam Estevez DO [Primary Care Provider] - Disposition Disposition (needs filled in before D/C Order can be placed): Home, Self Care
[2024-07-19] MEDS: Cefazolin 2 GM in Syringe IV (09:07)
--- NOTE | 2024-07-19 09:25 | OP.PCM_ITS ---
Operative Report (Standard) Operative Information Date of Procedure: 07/19/24 Pre-Operative Diagnosis: History of bladder cancer bladder lesion Post-Operative Diagnosis: The same Surgery/Procedure Performed: Cystoscopy and biopsy of bladder lesion and fu lguration of site machine plug shaper: No Type of Anesthesia: General RN Documented Start/Stop Times: Operation Date: 07/19/24 08:45 Case Time Into Pre-Op 07/19/24 06:47 Out of Pre-Op 07/19/24 08:57 Procedure Start Time: 09:14 Procedure Stop Time: 09:26 Select all DRAINS/GRAFTS/IMPLANTS that apply: None Estimated Blood Loss: 0 Specimen collected: Yes Description of specimen(s) removed: Bladder biopsy Description of surgery: This is a 64-year-old male who was found to have an extensive mount of bladder cancer this was all resected and he completed BCG therapy surveillance cystoscopy has been clear but recently on cystoscopy is found to have a lesion in the lateral wall of the bladder it is unclear if this lesion is small recurrence or just inflammatory changes from the bladder wall. Recommended we do a biopsy patient was okay with this. Patient was taken back to the operating room after smooth induction of anesthesia he was placed in dorsolithotomy position went into the bladder with a 21 Y[place] rigid cystourethroscope the entire length urethra was normal the prostate was normal inside the bladder the left and right ureteral orifice were clear and open and clear of tumors and normal no papillary tumors were seen there was just a reddish inflammatory lesion erythematous lesion in the patient's bladder wall the bladder it was on the right lateral wall the bladder a cold cup biopsy was taken of this lesion and then I used a Bugbee electrode and cauterized this extensively drained the bladder and watch the area there was no signs of bleeding from the cauterization site I then removed the cystoscope and the patient was taken back to PACU in good condition we will see him back in a few weeks to follow-up after the biopsies. Surgical Findings: Lesion on the tright lateral wall of the bladder possible just inflammation possible tumor Complications Complications: No Admit VTE Documentation VTE Present on Admission: No VTE Mechan Device Prophylaxis: SCD's VTE Pharm Prophylaxis ordered?: No
--- NOTE | 2024-07-19 09:34 | PCM.POST.ANE ---
Anesthesia: Postop Eval I Current Vital Signs Temperature: 98.2 F Pulse Rate: 77 Blood Pressure: 113/69 Respiratory Rate: 20 Pulse Ox: 98 Oxygen Delivery Method: Room Air Assessment Airway patent: Yes Spontaneous unlabored respirations: Yes Mental status: Awake nausea: No Vomiting: No Anesthesia Complication: No Fluid Hydration Crystalloid volume administer (ml): 600 Total IV fluid infused: 600 Progress Note Anesthesia document: Postop Eval 1 completed: Yes
--- NOTE | 2024-07-19 13:42 | POSTOPAN2_ITS ---
Anesthesia Postop Eval I Sum Postop Eval Completion status Anesthesia document: Postop Eval 1 completed: Yes Anesthesia Postop Eval I Summary Anesthesia Postop Eval I Summary: Anesthesia Postop Eval I: Assessment Summary Airway patent Yes 07/19/24 09:36 ROLLOUT MANAGER.[email or web address] Spontaneous unlabored Yes 07/19/24 09:36 ROLLOUT MANAGER.JSWI respirations Mental status Awake 07/19/24 09:36 ROLLOUT MANAGER.JSWI nausea No 07/19/24 09:36 ROLLOUT MANAGER.JSWI Vomiting No 07/19/24 09:36 ROLLOUT MANAGER.JSWI Anesthesia Postop Eval I: Fluid Summary Crystalloid volume administer 600 07/19/24 09:36 ROLLOUT MANAGER.JSWI (ml) Colloids volume administered ( ml) Blood Product volume administered (ml) Total IV fluid infused 600 07/19/24 09:36 ROLLOUT MANAGER.JSWI Anesthesia Postop Eval I: Summary Notes Anesthesia Complication No 07/19/24 09:36 ROLLOUT MANAGER.JSWI Anesthesia Complication Comment: Post-operative progress note Anesthesia: Postop Eval II Evaluation Mental status: Awake Pain Level: 0 nausea: No Vomiting: No
--- NOTE | 2024-07-19 13:42 | PCM.POSTANE2 ---
Anesthesia Postop Eval I Sum Postop Eval Completion status Anesthesia document: Postop Eval 1 completed: Yes Anesthesia Postop Eval I Summary Anesthesia Postop Eval I Summary: Anesthesia Postop Eval I: Assessment Summary Airway patent Yes 07/19/24 09:36 GENERATION ENGINEERING TECHNOLOGIST.JSWI Spontaneous unlabored Yes 07/19/24 09:36 GENERATION ENGINEERING TECHNOLOGIST.JSWI respirations Mental status Awake 07/19/24 09:36 GENERATION ENGINEERING TECHNOLOGIST.JSWI nausea No 07/19/24 09:36 GENERATION ENGINEERING TECHNOLOGIST.JSWI Vomiting No 07/19/24 09:36 GENERATION ENGINEERING TECHNOLOGIST.JSWI Anesthesia Postop Eval I: Fluid Summary Crystalloid volume administer 600 07/19/24 09:36 GENERATION ENGINEERING TECHNOLOGIST.JSWI (ml) Colloids volume administered ( ml) Blood Product volume administered (ml) Total IV fluid infused 600 07/19/24 09:36 GENERATION ENGINEERING TECHNOLOGIST.JSWI Anesthesia Postop Eval I: Summary Notes Anesthesia Complication No 07/19/24 09:36 GENERATION ENGINEERING TECHNOLOGIST.JSWI Anesthesia Complication Comment: Post-operative progress note Anesthesia: Postop Eval II Evaluation Mental status: Awake Pain Level: 0 nausea: No Vomiting: No
== END 2024-07-19 10:14 | disposition home or self-care (01) ==
LOC: SDC 06:39 → AC 06:40
PROVIDERS: PCP Family Medicine; Referring Provider Urology; Visit Provider Urology
PROC: 0TBB8ZX Excision of Bladder, Via Natural or Artificial Opening Endoscopic, Diagnostic (ICD-10-PCS; CPT 52234; principal; 2024-07-19 08:35)
DX: N30.90 Cystitis, unspecified without hematuria (principal); Z79.51 Long term (current) use of inhaled steroids; J45.909 Unspecified asthma, uncomplicated; Z79.899 Other long term (current) drug therapy; Z85.51 Personal history of malignant neoplasm of bladder
CPT/HCPCS: 52234; 00910; 88305; A4216; J2405

== ENCOUNTER → 2024-11-30 | Outpatient (CLI) | payer OTHER, SELFPAY ==
--- NOTE | 2024-11-30 08:09 | FLU_PTH ---
PATIENT: MUSHTAQ ADAMS LOC: [facility] U#:[id number] AGE/SX: 64/M ROOM: RE11/30/[address]: Dr. César Ríos MD : 1960 BED: DIS: 11/30/2024 SPEC #: [id number] RECD: 11/30/24 11:00 STATUS: JERMAIN RERonny #: [id number] ISAIAS: 11/30/24 08:[address]: César Ríos DEPT: CYTOLOGY RECD BY: Andreas Baez ENTERED: 12/01/24 08:57 SP TYPE: Fluid OTHR DR: Dr. Anupam Estevez, DO Tissues: A - Urine Procedures: Special Stain Group II Surgery Specimen Level IV Cytospin Fluid HEADER OPERATION: Not noted PRE-OP DIAGNOSIS: Malignant neoplasm of overlapping sites of bladder TISSUE SUBMITTED: A- Urine for cytology *voided* DIAGNOSIS CYTOLOGY A. Urine (cytospin): Suspicious for high grade urothelial carcinoma. CYTOLOGY STUDY Slides are reviewed. CYTOLOGY GROSS A. Received is 20 ml of orange-cloudy fluid labeled with the patient's name and and designated per the requisition as urine. Submitted for cytology preparation. 11/30/2024 CPT: 00988
[2024-11-30 16:18] LABS: Cytology, Body Fluid / CSF SEE PATHOLOGY REPORT
== END | disposition home or self-care (01) ==
LOC: LABSPEC 16:03
PROVIDERS: PCP Family Medicine; Referring Provider Urology; Visit Provider Urology
DX: C67.8 Malignant neoplasm of overlapping sites of bladder (principal)
CPT/HCPCS: 88108; 88305; 88313

== ENCOUNTER 2024-12-06 12:38 | Day surgery (SDC) | payer OTHER, SELFPAY ==
--- NOTE | 2024-12-05 07:55 | EKG12_ITS ---
Test Reason : PREOP Blood Pressure : */* mmHG Vent. Rate : 64 BPM Atrial Rate : 64 BPM P-R Int : 148 ms QRS Dur : 94 ms QT Int : 404 ms P-R-T Axes : 50 73 44 degrees QTcB Int : 416 ms Normal sinus rhythm Normal ECG Confirmed by Atif Mooney ([id number]), non linear editor SYLWIA EASTON ([id number]) on 12/11/2024 12:52:45 PM Referred By: César Ríos Confirmed By: Atif Mooney
[2024-12-06] VITALS (10 sets, daily range): BP systolic 108–169; BP diastolic 56–101; PULSE 57–87; RESP 16; TEMP 36.1–37.3; O2SAT 94–97; BMI 27.3
[2024-12-06] MEDS: Lactated Ringers 1,000 ML 15 ML IV (13:16)
--- NOTE | 2024-12-06 14:17 | PRE.ANES_ITS ---
ASA Classification* ASA Classification ASA Classification: 2 Assessment & Plan Anesthesia* Anesthesia Assessment Anesthesia Assessment: Discussed sedation and/or anesthesia options, risks, benefits, and alternatives with patient/parents/legal guardian/POA. Questions invited. The patient/parents/legal guardian/POA seems to understand and agrees to proceed with anesthesia plan. Reviewed the physical assessment, medical history, allergy history and patient home medications list prior to surgery/procedure/anesthetic and documented any changes. Performed airway and anesthesia risk assessments. Anesthesia Type Anesthesia Type: General (Avoid succinylcholine.) History Source History Obtained from:: Patient and Chart Anesthesia Focused Assessment* Temperature: 99.1 F Pulse Rate: 85 Blood Pressure: 135/73 Respiratory Rate: 16 Pulse Ox: 96 Oxygen Delivery Method: Room Air Airway Assessment Mouth opens: >3 cm Mallampati Score: I Teeth Condition: Intact Neck Range of motion (ROM): Full ROM Focused Labs Anesthesia Preop lab: CBC WBC 5.9 K/mm3 (4.4-11.0) 05/19/24 10:05/19/24 RBC 4.77 M/mm3 (4.6-6.2) 05/19/24 10:05/19/24 Hgb 13.6 g/dL (13.0-16.5) 05/19/24 10:05/19/24 Hct 42.1 % (40-54) 05/19/24 10:05/19/24 Plt Count 226 K/mm3 (150-450) 05/19/24 10:05/19/24 CHEMISTRY Potassium 4.2 mmol/L (3.5-5.1) 05/19/24 10:05/19/24 Sodium 137 mmol/L (136-145) 05/19/24 10:05/19/24 BUN 20 mg/dL (7-18) H 05/19/24 10:05/19/24 Creatinine 1.07 mg/dL (0.70-1.30) 05/19/24 10:05/19/24 Glucose 100 mg/dL (74-106) 05/19/24 10:05/19/24 COAG Pre-Assessment Diagnosis/Proposed Procedure Planned Operative Procedure(s): TURBT WITH MITOMYCIN C Anesthesia History Anesthesia History - corporate compliance director: Anesthesia History - corporate compliance director Hx Hospitalization No 12/01/24 11:29 Any Problems With Anesthesia No: NO PROBLEMS WITH 12/01/24 11:29 ANESTHESIA 07/2024. Cholinesterase deficiency No 12/01/24 11:29 You/Your Family Experience No 12/01/24 11:29 fever (hyperthermia) with Relationship Recent Exposure to Contagious No 12/06/24 13:09 Disease Does patient have nerve No 12/01/24 11:29 stimulator Patient instructed to have device shut off --Does patient have Pacemaker No 12/06/24 13:11 or ICD? When Was Last Pacemaker Check QUESTION #4 FULL TEXT: You/Your Family Experience fever (hyperthermia) with Anesthesia Last Oral Intake Last Oral intake: Last Oral Intake NPO since 19:00 12/06/24 13:11 Meds taken in AM with sips of Yes 12/06/24 13:11 water? Meds patient instructed to take am of surgery Any additional information?: Yes Meds taken in AM with sips of water?: Yes Meds patient instructed to take am of surgery: Omeprazole PONV PONV - corporate compliance director: PONV - corporate compliance director Female No 12/01/24 11:29 HX of Motion Sickness No 12/01/24 11:29 HX of N/V After Surgery No 12/01/24 11:29 Non-Smoker Yes 12/01/24 11:29 Duration of Surgery greater Yes 12/01/24 11:29 than 60 minutes Number of Risk Factors 2 12/01/24 11:29 PONV Score Moderate Risk 12/01/24 11:29 Height & Weight Height & Weight: Anesthesia: Height & Weight Height 5 ft 11 in 12/06/24 13:11 Weight: 88.813 kg 12/06/24 13:11 Body Mass Index (BMI) 27.3 12/06/24 13:11 Respiratory Assessment Respiratory Assessment - corporate compliance director: Respiratory Tract Infection Hx - corporate compliance director Hx Respiratory Tract Infection No 12/01/24 11:29 STOP Sleep Apnea STOP Sleep Apnea - corporate compliance director: STOP Sleep Apnea - corporate compliance director Hx Hypertension No 12/01/24 11:29 Hx Sleep Apnea No 12/01/24 11:29 CPAP BIPAP Do you snore loudly (louder No 12/01/24 11:29 than talking or can be heard Do you often feel tired/ No 12/01/24 11:29 fatigued/ sleepy during daytime? Has anyone observed you stop No 12/01/24 11:29 breathing during sleep? STOP Results Negative 12/01/24 11:29 QUESTION #5 FULL TEXT : Do you snore loudly (louder than talking or can be heard through closed doors)? 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 Specify any problems Hx of Preganancy in last 3 N/A 12/01/24 11:29 Months Nurse Filling Out Transfusion DSCHRIBER 12/01/24 11:29 & Questions: Date: 12/01/24 12/01/24 11:29 Time: 11:32 12/01/24 11:29 Patient unable to answer at this time (ie. confused, unrespo /Reproduction History /Reproductive History - corporate compliance director: /Reproductive Hx- corporate compliance director Hx Now No 12/01/24 11:29 Gestational Age (in weeks): EDC: Hx Hx Para Hx Section SAB No 12/01/24 11:29 Active Medications Active Medications: Current Medications Generic Name Dose Route Start Last Admin Trade Name Freq PRN Reason Stop Dose Admin Lactated Ringer's 1,000 mls @ 15 mls/hr 12/06/24 13:00 12/06/24 13:16 IV 15 mls/hr .Q48H BERNARDO Administration Cefazolin Sodium 2 gm/ Sodium 110 mls @ 150 mls/hr 12/06/24 14:00 Chloride IV 12/06/24 14:43 INTRAOP ONE PFSH Medical History Loss of hearing Wears glasses Bladder disease Tinnitus Cancer Anxiety Depression Arthritis Heartburn Non-smoker Asthma History of stress test Home Medications ?Medication ?Instructions ?Recorded ?Last Taken ?Type albuterol sulfate 90 mcg/actuation 1 - 2 puff inhalati on Q4H PRN PRN 08/18/16 12/06/24 11:00 History aerosol inhaler (Ventolin HFA) Asthma fluticasone 250 mcg-salmeterol 50 1 puff inhalation BI D 08/18/16 12/06/24 06:00 History mcg/dose blistr powdr for inhalation (Advair Diskus) omeprazole 20 mg capsule,delayed 20 mg PO DAILY PRN ac id reflux 10/11/23 12/06/24 11:00 History release ibuprofen 600 mg tablet 600 mg PO Q6H PRN pain #20 t abs 10/13/23 Unknown Rx citalopram 10 mg tablet 10 mg PO DAILY 12/01/2411/10 History Allergy/AdvReac Type Severity Reaction Status Date / Time succinylcholine AdvReac Severe Other Verified 12/06/24 13:07 Surgical History H/O transurethral resection of bladder tumor (TURBT) History of colonoscopy History of tonsillectomy History of adenoidectomy History of shoulder surgery Social History Smoking Status: Never smoker Review of Systems (Anesthesia) ROS Narrative System reviewed and no additional complaints, except as documented. Physical Exam Resp clear to auscultation bilaterally
--- NOTE | 2024-12-06 14:45 | BLA_PTH ---
PATIENT: MUSHTAQ ADAMS LOC: [facility] [place] U#:[id number] AGE/SX: 64/M ROOM: RE12/06/[address]: Dr. César Ríos MD : 1960 BED: DIS: 12/06/2024 SPEC #: [id number] RECD: 12/07/24 09:29 STATUS: JERMAIN REQ #: [id number] ISAIAS: 12/06/24 14:[address]: César Ríos DEPT: SURGICAL PATHOLOGY RECD BY: Andreas Baez ENTERED: 12/07/24 10:30 SP TYPE: BLADDER BX OTHR DR: Dr. Anupam Estevez, DO Tissues: A - Urinary bladder, NOS Procedures: Immunohistochemical Stains Surgery Specimen Level V IHC Stain ADDITIONAL HEADER OPERATION: Transurethral resection bladder tumor PRE-OP DIAGNOSIS: Bladder tumor TISSUE SUBMITTED: A- Bladder tumor MICROSCOPIC DIAGNOSIS A. Bladder, tumor, transurethral resection of bladder tumor: * Focal scant residual urothelium with reactive/inflammatory change - see note and Comment. * Lamina propria present with active chronic inflammation, negative for neoplasia. * Muscularis propria identified, negative for neoplasia. * Note: The residual urothelium is negative for CK20. Ki67 is not significantly increased. The p53 is wild-type. These findings support the histologic impression of benign urothelium. COMMENT Selected slides/images were reviewed in intradepartmental consultation by Dr Majo Wynn ([facility] pathology division, [place]). MICROSCOPIC DESCRIPTION Slides are reviewed. All matched controls reacted appropriately. These tests were developed and their performance characteristics determined by [facility]. They may not have been cleared or approved by the U.S. Food and Drug Administration. The FDA has determined that such clearance or approval is not necessary.? The above immunohistochemical/dualISH?markers are ordered and reviewed by the Pathologist. GROSS DESCRIPTION A. Received in formalin in a container labeled with the patient's name, date of , and bladder tumor are multiple langford-pink fragments of soft tissue measuring 1.6 x 0.7 x 0.4 cm in aggregate and approximately 0.3 g together. The specimen is submitted in toto in A1. B 12-07-2024 CPT:04544, 20988, [id number]
--- NOTE | 2024-12-06 15:37 | PCM.HP.STD ---
HPI - General General Date of Service: 12/06/24 Chief Complaint: Bladder tumor [facility] Narrative MUSHTAQ ADAMS, is a 64 M who presents for resection of a tumor that is growing back on his left lateral wall prior biopsy came back negative for carcinoma he has a history of bladder cancer treated with resection Mitomycin-C and BCG therapy. [facility] Medical History Loss of hearing Wears glasses Bladder disease Tinnitus Cancer Anxiety Depression Arthritis Heartburn Non-smoker Asthma History of stress test Home Medications ?Medication ?Instructions ?Recorded ?Last Taken ?Type albuterol sulfate 90 mcg/actuation 1 - 2 puff inhalation Q4H PRN PRN 08/18/16 12/06/24 11:00 History aerosol inhaler (Ventolin HFA) Asthma fluticasone 250 mcg-salmeterol 50 1 puff inhalation BID 08/18/16 12/06/24 06:00 History mcg/dose blistr powdr for inhalation (Advair Diskus) omeprazole 20 mg capsule,delayed 20 mg PO DAILY PRN acid reflux 10/11/23 12/06/24 11:00 History release ibuprofen 600 mg tablet 600 mg PO Q6H PRN pain #20 tabs 10/13/23 Unknown Rx citalopram 10 mg tablet 10 mg PO DAILY 12/01/24 12/05/24 History acetaminophen 500 mg capsule 500 mg PO Q4H PRN pain #20 caps 12/06/24 Unknown Rx ibuprofen 600 mg tablet 600 mg PO Q6H PRN pain #20 tabs 12/06/24 Unknown Rx phenazopyridine 100 mg tablet 100 mg PO TID PRN pain #14 tabs 12/06/24 Unknown Rx (Pyridium) tamsulosin 0.4 mg capsule (Flomax) 0.4 mg PO DAILY PRN difficulty 12/06/24 Unknown Rx voiding #10 caps Allergy/AdvReac Type Severity Reaction Status Date / Time succinylcholine AdvReac Severe Other Verified 12/06/24 13:07 Surgical History H/O transurethral resection of bladder tumor (TURBT) History of colonoscopy History of tonsillectomy History of adenoidectomy History of shoulder surgery Social History Smoking Status: Never smoker Vital Signs Vital Signs Vital Signs: 12/06/24 13:09 12/06/24 13:11 12/06/24 14:24 Temperature 99.1 F 99.1 F Temperature Source Temporal Pulse Rate 85 85 Respiratory Rate 16 16 Respiratory Pattern Normal Blood Pressure 135/73 H 135/73 H Blood Pressure Mean 93 Blood Pressure Source Monitor Blood Pressure Position Semi-Fowlers Blood Pressure Location Right Arm Pulse Ox 96 96 Oxygen Delivery Method Room Air Room Air Weight Weight: 88.813 kg Body Mass Index (BMI) 27.3
--- NOTE | 2024-12-06 15:38 | PCM.DC ---
Discharge Instructions Diet Discharge Diet: No restrictions DC O2, CPAP, BIPAP needs Home O2 Discharge instructions: No Dressing / Incision Discharge Activity: Return to Normal Activity and May Not Drive (while taking narcotic pain medications.) Dressing / Incision Call your doctor if you observe: Fever of 101 or Higher Follow Up Care Please Follow Up With: César Ríos MD When: Call [phone] for an appointment Test Results: Test results from this visit will be discussed in further detail at your follow-up appointment, if applicable. Discharge Plan Admission Primary Reason for Your Visit: Resection of bladder tumor Attending Provider: César Ríos Primary Care Provider: Anupam Estevez Instructions Print Language: Sinhala Discharge Orders/Prescriptions Prescriptions: New ibuprofen 600 mg tablet 600 mg PO Q6H PRN (Reason: pain) Qty: 20 0RF phenazopyridine [Pyridium] 100 mg tablet 100 mg PO TID PRN (Reason: pain) Qty: 14 0RF acetaminophen 500 mg capsule 500 mg PO Q4H PRN (Reason: pain) Qty: 20 0RF tamsulosin [Flomax] 0.4 mg capsule 0.4 mg PO DAILY PRN (Reason: difficulty voiding) Qty: 10 0RF Continued fluticasone propion-salmeterol [Advair Diskus] 1 PUFF inhaler 1 puff inhalation BID albuterol sulfate [Ventolin HFA] 1 INHALER inhaler 1 - 2 puff inhalation Q4H PRN PRN (Reason: Asthma) omeprazole 20 mg capsule,delayed release(DR/EC) 20 mg PO DAILY PRN (Reason: acid reflux) ibuprofen 600 mg tablet 600 mg PO Q6H PRN (Reason: pain) Qty: 20 0RF citalopram 10 mg tablet 10 mg PO DAILY Referrals / Follow Up: César Ríos MD [Med Staff - Active Staff] - Anupam Estevez DO [Primary Care Provider] - Disposition Disposition (needs filled in before D/C Order can be placed): Home, Self Care
[2024-12-06] MEDS: Cefazolin 2 GM in 0.9% Normal Saline (100mL Bag) 100 ML IV (15:43)
[2024-12-06] MEDS: MitoMYcin 40 MG in Syringe 1 EACH 2400 MG INSTILLAT (16:15)
--- NOTE | 2024-12-06 16:17 | OP.PCM_ITS ---
Operative Report (Standard) Operative Information Date of Procedure: 12/06/24 Pre-Operative Diagnosis: Bladder tumor history of bladder cancer multifocal Post-Operative Diagnosis: The same resection of tumor in the patient's right lateral wall resection site was 2 cm x 4 cm in size Surgery/Procedure Performed: Transurethral section of bladder tumor director data processing: No Type of Anesthesia: General RN Documented Start/Stop Times: Operation Date: 12/06/24 14:45 Case Time Into Pre-Op 12/06/24 12:55 Out of Pre-Op 12/06/24 15:31 Anesthesia Start 12/06/24 15:43 Into Room 12/06/24 15:43 Procedure Start 12/06/24 16:00 Procedure End 12/06/24 16:16 Procedure Start Time: 16:00 Procedure Stop Time: 04:17 Select all DRAINS/GRAFTS/IMPLANTS that apply: Drains Drain details: lewis Estimated Blood Loss: Minimal Specimen collected: Yes Description of specimen(s) removed: Bladder tumor resected Description of surgery: This is a 64-year-old gentleman who presented with a very large mass occupying most of the bladder he underwent a fairly extensive resection of his bladder tumor completed BCG therapy after the BCG therapy located a complete response and then on follow-up cystoscopy there was an area of some lesion in the lateral wall of the bladder cystoscopy bladder bladder biopsy this was done ischemic and negative so we decided to continue with surveillance follow-up cystoscopy demonstrated more like a mass area in the area of the scar healing on the lateral wall the bladder the right lateral wall up towards the top there was an area that looked more papillary and suspicious for carcinoma so organ to do a resection today where the resectoscope. Patient was taken back to the operative room at this with induction of anesth esia he was underwent neurolytic paralyzation and was placed in dorsolithotomy position and went in the bladder with a 24 Kazakh noncontinuous flow Olympus bipolar resectoscope upon inspecting the bladder the right ureteral right and left ureteral orifices were not involved and inspected both these areas he had scar tissue where the the bladder contracted down on the right lateral wall and then toward the top of the scar tissue there was a bullous papillary area looking no suspicious for cancer. I then put in the resectoscope loop I started resecting on top of their resected through the area down to the muscle fibers and then resected the rest of the scar, and the way down so the area was about 2 cm wide and 4 cm long along the lateral wall of the bladder after resecting this area then I cauterized extensively to control hemostasis and cauterized the lobe of the bladder neck from bleeding from the scope all the tissue was sent off as a specimen we then put a catheter in the bladder and instilled Mitomycin-C in the bladder for postresection instillation. Anesthetic is reversed he is taken back to the PACU in good condition the drain the Lewis catheter in a hour and then remove the catheter for voiding trial patient go home after urinates. Surgical Findings: Tumors looking area in the lateral wall the bladder resected Complications Complications: No Admit VTE Documentation VTE Present on Admission: No VTE Mechan Device Prophylaxis: SCD's VTE Pharm Prophylaxis ordered?: No
--- NOTE | 2024-12-06 16:30 | PCM.POST.ANE ---
Anesthesia: Postop Eval I Current Vital Signs Temperature: 97.9 F Pulse Rate: 83 Blood Pressure: 122/85 Respiratory Rate: 16 Pulse Ox: 95 Oxygen Delivery Method: Room Air Assessment Airway patent: Yes Spontaneous unlabored respirations: Yes Mental status: Awake and Calm nausea: No Vomiting: No Anesthesia Complication: No Fluid Hydration Crystalloid volume administer (ml): 500 Total IV fluid infused: 500 Progress Note Anesthesia document: Postop Eval 1 completed: Yes
[2024-12-06] MEDS: Ketorolac 15 MG/ML Vial IV (17:03)
--- NOTE | 2024-12-06 20:48 | POSTOPAN2_ITS ---
Anesthesia Postop Eval I Sum Postop Eval Completion status Anesthesia document: Postop Eval 1 completed: Yes Anesthesia Postop Eval I Summary Anesthesia Postop Eval I Summary: Anesthesia Postop Eval I: Assessment Summary Airway patent Yes 12/06/24 16:30 LIVESTOCK YARD [email or web address] Spontaneous unlabored Yes 12/06/24 16:30 LIVESTOCK YARD [email or web address] respirations Mental status Awake,Calm 12/06/24 16:30 LIVESTOCK YARD [email or web address] nausea No 12/06/24 16:30 LIVESTOCK YARD [email or web address] Vomiting No 12/06/24 16:30 LIVESTOCK YARD [email or web address] Anesthesia Postop Eval I: Fluid Summary Crystalloid volume administer 500 12/06/24 16:30 LIVESTOCK YARD [email or web address] (ml) Colloids volume administered ( ml) Blood Product volume administered (ml) Total IV fluid infused 500 12/06/24 16:30 LIVESTOCK YARD [email or web address] Anesthesia Postop Eval I: Summary Notes Anesthesia Complication No 12/06/24 16:30 LIVESTOCK YARD [email or web address] Anesthesia Complication Comment: Post-operative progress note Anesthesia: Postop Eval II Evaluation Mental status: Awake and Calm Pain Level: 1 nausea: No Vomiting: No Complications Anesthesia Complication: No
--- NOTE | 2024-12-06 20:48 | PCM.POSTANE2 ---
Anesthesia Postop Eval I Sum Postop Eval Completion status Anesthesia document: Postop Eval 1 completed: Yes Anesthesia Postop Eval I Summary Anesthesia Postop Eval I Summary: Anesthesia Postop Eval I: Assessment Summary Airway patent Yes 12/06/24 16:30 NEON [email or web address] Spontaneous unlabored Yes 12/06/24 16:30 NEON [email or web address] respirations Mental status Awake,Calm 12/06/24 16:30 NEON [email or web address] nausea No 12/06/24 16:30 NEON [email or web address] Vomiting No 12/06/24 16:30 NEON [email or web address] Anesthesia Postop Eval I: Fluid Summary Crystalloid volume administer 500 12/06/24 16:30 NEON [email or web address] (ml) Colloids volume administered ( ml) Blood Product volume administered (ml) Total IV fluid infused 500 12/06/24 16:30 NEON [email or web address] Anesthesia Postop Eval I: Summary Notes Anesthesia Complication No 12/06/24 16:30 NEON [email or web address] Anesthesia Complication Comment: Post-operative progress note Anesthesia: Postop Eval II Evaluation Mental status: Awake and Calm Pain Level: 1 nausea: No Vomiting: No Complications Anesthesia Complication: No
== END 2024-12-06 18:04 | disposition home or self-care (01) ==
LOC: SDC 12:39 → AC 12:40
PROVIDERS: PCP Family Medicine; Referring Provider Urology; Visit Provider Urology
PROC: 0T5B8ZZ Destruction of Bladder, Via Natural or Artificial Opening Endoscopic (ICD-10-PCS; CPT 51720; principal; 2024-12-06 14:35)
DX: N30.20 Other chronic cystitis without hematuria (principal); N40.1 Benign prostatic hyperplasia with lower urinary tract symptoms; J45.909 Unspecified asthma, uncomplicated; F32.A Depression, unspecified; F41.9 Anxiety disorder, unspecified; Z79.51 Long term (current) use of inhaled steroids; Z79.899 Other long term (current) drug therapy; Z85.51 Personal history of malignant neoplasm of bladder
CPT/HCPCS: 52235; 00912; 88307; 88341; 88342; 93005; J9280; J2405

== ENCOUNTER → 2025-01-01 | Outpatient (CLI) | payer OTHER, SELFPAY | END | disposition home or self-care (01) | LOC: LAB 13:33 | PROVIDERS: PCP Family Medicine; Referring Provider Urology; Visit Provider Urology | DX: R30.9 Painful micturition, unspecified (principal) | CPT/HCPCS: 87086 ==

== ENCOUNTER → 2025-01-17 | Outpatient (CLI) | payer OTHER, SELFPAY ==
--- NOTE | 2025-01-17 17:36 | STRESSREP ---
Stress Test Report Exercise stress test. 64-year-old male with a history of chest pain Stress protocol: Resting EKG demonstrates normal sinus rhythm with a rate of 70 bpm resting blood pressure is 122/78 mmHg. The patient exercised according to the regular Kin protocol for a total duration of 9 minutes attaining a maximum heart rate of 142 bpm which was 91% of maximum predicted heart rate; the maximum workload was 10.4 metabolic equivalents. At rest there were no ST or T wave changes noted to suggest ischemia and at peak exercise upsloping ST changes only were noted which did not meet the criteria for ischemia. No clinical angina was noted the test was terminated due to the target heart rate being achieved/fatigue. The peak blood pressure was 190/62 mmHg. Rate-pressure product was 26,700. Conclusion: Exercise stress test with no EKG changes for ischemia at a high workload. No clinical angina noted. No arrhythmias present.
== END | disposition home or self-care (01) ==
LOC: CVS 10:42
PROVIDERS: PCP Family Medicine; Referring Provider Family Medicine; Visit Provider Family Medicine
DX: I25.10 Atherosclerotic heart disease of native coronary artery without angina pectoris (principal)
CPT/HCPCS: 93017

== ENCOUNTER → 2025-03-06 | Outpatient (CLI) | payer OTHER, SELFPAY ==
--- OUTSIDE RECORDS SUMMARY | 2025-03-06 06:43 | XMS RPT_ITS | CCD ---
Author Organization [facility] Care Team Providers Care Whirley Operator Name Role Phone Joelle Musa N Unavailable Marimar Meier Unavailable [phone] MARY ARMENDARIZ Unavailable Unavailable CHANA DAY (CASTING FINISHER) Unavailable Unav gerardoable NAIMA GRANDE Unavailable Unavailable Opal Musaica N Unavailable Gokul Musassica N Unavailable Gokul Musassica N Unavailable Marimar Meier Unavailable [phone] Dr. Naima Estevez Primary Care Provider [phone] Dr. Atif Mooney Attending Provider [phone] Dr. César Ríos Referring Provider [phone] Dr. Naima Estevez DO Primary Care Provider Khushbu MCKNIGHT, Dr. César Mullins Attending Provider [phone] Khushbu MCKNIGHT, Dr. César Mullins Referring Provider [phone] Dr. Atif Mooney MD Attending Provider Dr. Naima Estevez DO Attending Provider [phone] Naima Estevez DO Referring Provider [phone] Dr. Álvaro Aparicio MD Attending Provider Dr. Álvaro Aparicio MD Referring Provider [phone] Dr. Naima Estveez DO Other Provider Álvaro Aparicio Attending Unavailable Naima Estevez Consulting Unavailable Naima Estevez Referring Unavailable Naima Estevez Primary Care Unavailable Naima Estevez Attending Unavailable Herb, Naima Primary Care Unavailable Khushbu, Saran Referring Unavailable Khushbu, Saran Attending Unavailable Herb, Naima Primary Care Unavailable Herb, Naima Attending Unavailable Herb, Naima Referring Unavailable Herb, Naima Primary Care Unavailable Herb, Naima Attending Unavailable Herb, Naima Referring Unavailable Herb, Naima Primary Care Unavailable Herb, Naima Attending Unavailable Herb, Naima Referring Unavailable Herb, Naima Primary Care Unavailable Álvaro Aparicio Attending Unavailable Álvaro Aparicio Referring Unavailable Herb, Naima Primary Care Unavailable Herb, Naima Primary Care Unavailable Atif Mooney Attending Unavailable Khushbu, Saran Referring Unavailable Herb, Naima Primary Care Unavailable Herb, Naima Attending Unavailable Herb, Naima Referring Unavailable Herb, Naima Primary Care Unavailable Khushbu, Saran Attending Unavailable Khushbu, Saran Referring Unavailable Herb, Naima Primary Care Unavailable Khushbu, Saran Attending Unavailable Khushbu, Saran Referring Unavailable Herb, Naima Primary Care Unavailable Khushbu, Saran Attending Unavailable Khushbu, Saran Referring Unavailable Allergies Allergy Classification Reported Allergen(s) Allergy Type Date of Onset Reaction(s) Facility (1 source) acetaminophen / oxyCODONE; Translations: [OXYCODONE-ACETAMIN OPHEN] Drug Allergy 7 [facility] Repository (1 source) OTHER; Translations: [OTHER] Propensity to adverse reactions (disorder) 7 [facility] Repository (4 sources) Succinylcholine Drug Allergy 5 Other [facility] Comment on above: SEVERE MUSCLE STIFFN ESS (1 source) Succinylcholine Drug Allergy 5 [facility] Repository Medications Current Medications Medication Drug Class(es) Dates Sig (Normalized) Sig (Original) acetaminophen 500 mg oral capsule (3 sources) Start: 12-06-2024 take 1 capsule by mouth every four hours as needed for pain Acetaminophen 500 mg capsule Active 500 mg PO Q4H as needed for pain 20 0 December 06, 2024 12:00am Albuterol (16 sources) beta2-Adrenergic Agonist Start: 08-18-2016 Albuterol Sulfate (Ventolin Hfa) 1 INHALER inhaler Active 1 - 2 NMA INHALATION EVERY 4 HOURS NEEDED as needed for Asthma August 18, 2016 1:00am Start: 08-18-2016 take 1 puff(s) by in halation every four hours as needed Albuterol Sulfate (Ventolin Hfa) 1 INHALER inhaler Active 1 - 2 PUFF INHALATION EVERY 4 HOURS NEEDED August 18, 2016 1:00am Start: 08-18-2016 Albuterol Sulf ate (Ventolin Hfa (Sp)) 1 INHALER inhaler Active 1 - 2 PUFF INHALATION EVERY 4 HOURS NEEDED August 18, 2016 1:00am Start: 07-14-2016 ALBUTEROL SULF ATE (2.5 MG/3ML) 0.083% NEBU ALBUTEROL SULFATE [id number] Damon Peoples citalopram 10 mg oral tablet (10 sources) Serotonin Reuptake Inhibitor Start: 12-01-2024 take 1 tablet by mouth once daily Citalopram 10 mg tablet Active 10 mg PO DAILY December 01, 2024 12:00am Start: 08-04-2016 CELEXA 20 MG T ABS CITALOPRAM HYDROBROMIDE [id number] Damon Peoples Fluticasone Propion-Salmeterol (10 sources) Corticosteroid, beta2-Adrenergic Agonist Start: 08-18-2016 take 1 puff(s) by inhalation twice daily Fluticasone Propion-Salmeterol (Advair Diskus) 1 PUFF inhaler Active 1 NMA INHALATION TWICE A DAY August 18, 2016 1:00am Start: 08-18-2016 take 1 puff(s) by in halation twice daily Fluticasone Propion-Salmeterol (Advair Diskus) 1 PUFF inhaler Active 1 PUFF INHALATION TWICE A DAY August 18, 2016 1:00am Start: 08-18-2016 take 1 puff(s) by in halation twice daily Fluticasone Propion-Salmeterol (Advair 250/50 Mcg Diskus) 1 PUFF inhaler Active 1 PUFF INHALATION TWICE A DAY August 18, 2016 1:00am ibuprofen 600 mg oral tablet (11 sources) Nonsteroidal Anti-inflammatory Drug Start: 10-13-2023 take 1 tablet by mouth every six hours as needed for pain Ibuprofen 600 mg tablet Active 600 mg PO EVERY 6 HOURS as needed for pain 20 0 December 06, 2025 12:00am omeprazole 20 mg delayed release oral capsule (8 sources) Proton Pump Inhibitor Start: 10-11-2023 take 1 capsule by mouth once daily as needed Omeprazole 20 mg capsule,delayed release(DR/EC) Active 20 mg PO DAILY as needed for acid reflux October 11, 2023 12:00am phenazopyridine hydrochloride 100 mg oral tablet (16 sources) Start: 12-06-2024 take 1 tablet by mouth three times daily as needed for pain Phenazopyridine (Pyridium) 100 mg tablet Active 100 mg PO THREE TIMES A DAY as needed for pain 14 December 06, 2024 3:34pm Start: 11-19-2023 End: 07-03-2024 take 1 tablet by mouth three times daily as needed Phenazopyridine (Pyridium) 200 mg tablet Discontinued 200 mg PO THREE TIMES A DAY as needed for burning 15 November 19, 2023 10:00am July 03, 2024 11:22am Start: 10-13-2023 End: 11-09-2023 take 1 tablet by mouth three times daily Phenazopyridine (Pyridium) 100 mg tablet Discontinued 100 mg PO THREE TIMES A DAY 15 October 13, 2023 12:00am November 09, 2023 2:59pm tamsulosin hydrochloride 0.4 mg oral capsule (8 sources) alpha-Adrenergic Alicia Start: 12-06-2024 take 1 capsule by mouth once daily as needed Tamsulosin (Flomax) 0.4 mg capsule Active 0.4 mg PO DAILY as needed for difficulty voiding 10 December 06, 2024 3:36pm Start: 11-19-2023 End: 07-03-2024 take 1 capsule by mouth once daily Tamsulosin (Flomax) 0.4 mg capsule Discontinued 0.4 mg PO DAILY 10 November 19, 2023 12:00am July 03, 2024 11:23am Completed/Discontinued Medications Medication Drug Class(es) Dates Sig (Normalized) Sig (Original) acetaminophen 325 mg / oxyCODONE hydrochloride 5 mg oral tablet (10 sources) Opioid Agonist Start: 08-25-2016 End: 10-11-2023 Oxycodone-Acetamino phen 1 TABLET tablet Discontinued 1 - 2 {tbl} PO EVERY 6 HOURS NEEDED as needed for Pain 60 August 25, 2016 1:00am October 11, 2023 8:07am Start: 08-25-2016 End: 10-11-2023 take 1 tablet by mouth every six hours as needed Oxycodone-Acetaminophen Discontinued 1 - 2 TABLET PO EVERY 6 HOURS NEEDED 60 August 25, 2016 1:00am October 11, 2023 8:07am 24 hr buPROPion hydrochloride 150 mg extended release oral tablet (8 sources) Aminoketone Start: 10-11-2023 End: 07-03-2024 take 1 tablet by mouth once daily Bupropion Hcl 150 mg tablet extended release 24 hr Discontinued 150 mg PO DAILY October 11, 2023 12:00am July 03, 2024 11:22am mood ciprofloxacin 500 mg oral tablet (13 sources) Quinolone Antimicrobial Start: 11-19-2023 End: 07-03-2024 take 1 tablet by mouth twice daily Ciprofloxacin Hcl (Cipro) 500 mg tablet Discontinued 500 mg PO TWICE A DAY 10 November 19, 2023 12:00am July 03, 2024 11:22am Start: 10-13-2023 End: 11-09-2023 take 1 tablet by mouth twice daily Ciprofloxacin Hcl (Cipro) 500 mg tablet Discontinued 500 mg PO TWICE A DAY 20 October 13, 2023 12:00am November 09, 2023 2:58pm zolpidem tartrate 5 mg oral tablet (10 sources) gamma-Aminobutyric Acid-ergic Agonist Start: 08-25-2016 End: 10-11-2023 take 1 tablet by mouth at bedtime as needed Zolpidem 5 MG tablet Discontinued 5 mg PO AT BEDTIME NEEDED as needed for Insomnia 14 0 August 25, 2016 1:00am October 11, 2023 8:07am Problems Active Problems Problem Classification Problem Date Documented Date Episodic/Chronic Cancer of bladder (2 sources) Malignant neoplasm of overlapping sites of bladder; Translations: [Malignant neoplasm of bladder, unspecified] Onset: 5 Chronic Coronary atherosclerosis and other heart disease (2 sources) Atherosclerotic heart disease of [place] coronary artery without angina pectoris; Translations: [Atherosclerotic heart disease of [place] coronary artery without angina pectoris] Onset: 5 Chronic Disorders of lipid metabolism (1 source) Hyperlipidemia, unspecified; Translations: [Hyperlipidemia, unspecified] Onset: 5 Chronic Genitourinary symptoms and ill-defined conditions (1 source) Painful micturition, unspecified; Translations: [Painful micturition, unspecified] Onset: 5 Episodic Neoplasms of unspecified nature or uncertain behavior (1 source) Neoplasm of unspecified behavior of bladder; Translations: [Neoplasm of unspecified behavior of bladder] Onset: 5 Episodic Other nervous system disorders (6 sources) Ulnar nerve entrapment; Translations: [Lesion of ulnar nerve, unspecified upper limb] Onset: 7 07-14-2016 Chronic Other non-traumatic joint disorders (6 sources) Arthritis of acromioclavicular joint; Translations: [Unspecified osteoarthritis, unspecified site] Onset: 7 08-05-2016 Chronic Unclassified (4 sources) Postoperative physical examination; Translations: [Encounter for other specified surgical aftercare] Onset: 7 09-08-2016 Past or Other Problems Problem Classification Problem Date Documented Da te Episodic/Chronic Other aftercare (2 sources) Encounter for other specified surgical aftercare; Translations: [Encounter for other specified surgical aftercare] Onset: 09-08-2016 09-08-2016 Episodic Other connective tissue disease (8 sources) Impingement syndrome of shoulder region; Translations: [Pain in left shoulder] Onset: 07-14-2016 07-14-2016 Episodic Other connective tissue disease (6 sources) Disorder of rotator cuff; Translations: [Unspecified rotator cuff tear or rupture of left shoulder, not specified as traumatic] Onset: 07-14-2016 07-14-2016 Episodic Other non-traumatic joint disorders (4 sources) Pain in left shoulder; Translations: [Pain in left shoulder] Onset: 07-14-2016 07-14-2016 Episodic Sprains and strains (6 sources) Strain of other muscles, fascia and tendons at shoulder and upper arm level, left arm, initial encounter; Translations: [Strain of other muscles, fascia and tendons at shoulder and upper arm level, left arm, initial encounter] Onset: 08-04-2016 08-04-2016 Episodic Results Test Name Value Interpretation Reference Range Facility Cardiovascular stress test r eportOrdered By: Álvaro Aparicio on 01-17-2025 Study report [facility] [address] [place] [address] MR#: [id number] Acct: [id number] Name: STEPHAN ARAMBULA Rep #: [id number] : 1960 64 From: Álvaro Aparicio MD Primary Care: Dr. Naima Estevez DO Statu s: REG CLI Referring Dr: Naima Estevez DO Sex: M C Stress Test Report Exercise stress test. 64-year-old male with a history of chest pain Stress protocol: Resting EKG demonstrates normal sinus rhythm with a rate of 70 bpm resting bloodpressure is 122/78 mmHg. The patient exercised according to the regular Kin protocol for a total duration of 9 minutes attaining a maximum heart rate of 142bpm which was 91% of maximum predicted heart rate; the maximum workload was 10.4metabolic equivalents. At rest there were no ST or T wave changes noted to suggest ischemia and at peak exercise upsloping ST changes only were noted whichdid not meet the criteria for ischemia. No clinical angina was noted the test was terminated due to the target heart rate being achieved/fatigue. The peak blood pressure was 190/62 mmHg. Rate-pressure product was 26,700. Conclusion: Exercise stress test with no EKG changes for ischemia at a high workload. No clinical angina noted. No arrhythmias present. 01/17/251737 Date _ Álvaro Aparicio MD CC: Dr. Namia Estevez DO ~ Date Dictated: 01/17/251735 Date Transcribed: 01/17/251735 Jig Builder: CO Signed [facility] Work Phone: Stress Reporton 01-17-2025 Stress Report [facility] [address] [place] [address] MR#: [id number] Acct: [id number] Name: STEPHAN ARAMBULA Rep #: [id number] : 1960 64 From: Álvaro Aparicio MD Primary Care: Dr. Naima Estevez DO Status: REG CLI Referring Dr: Naima Estevez DO Sex: M C Stress Test Report Exercise stress test. 64-year-old male with a history of chest pain Stress protocol: Resting EKG demonstrates normal sinus rhythm with a rate of 70 bpm resting blood pressure is 122/78 mmHg. The patient exercised according to the regular Kin protocol for a total duration of 9 minutes attaining a maximum heart rate of 142 bpm which was 91% of maximum predicted heart rate; the maximum workload was 10.4 metabolic equivalents. At rest there were no ST or T wave changes noted to suggest ischemia and at peak exercise upsloping ST changes only were noted which did not meet the criteria for ischemia. No clinical angina was noted the test was terminated due to the target heart rate being achieved/fatigue. The peak blood pressure was 190/62 mmHg. Rate-pressure product was 26,700. Conclusion: Exercise stress test with no EKG changes for ischemia at a high workload. No clinical angina noted. No arrhythmias present. 01/17/251737 Date Álvaro Aparicio MD CC: Dr. Naima Estevez DO Date Dictated: 01/17/251735 Date Transcribed: 01/17/251735 Jig Builder: CO Signed Normal [facility] Urine Cultureon 01-02-2025 URC Culture exhibits no growth. Normal [facility] Comment on above: Performed By: #### M 100.2200 ####[facility] [id number] [facility] [place], [address] Urine cultureOrdered By: Hunter Ríos on 01-01-2025 Bacteria identified Cx Nom (U) Culture exhibits no growth. [facility] Coronary Angiography CTon Coronary Angiography CT [facility] Imaging Services [address] [place] [address] 12/25/24 1750 MR#: [id number] Acct: [id number] Name: STEPHAN ARAMBULA Rep #: [id number] : 1960 64 From: Álvaro Aparicio MD PCP: Dr. Naima Estevez DO Status:REG REF Y Location: CT Calcium Scoring Date of Study:: 12/15/24 Indications Indications: FH Coronary Calcium Scoring: High-resolution Computed Tomographic imaging of the chest was performed on [ 12/15/24], with particular attention paid to the coronary arteries. Images from the examination were analyzed for the presence and extent of coronary artery calcification , using coronary calcium quantification software. The patient tolerated the procedure well and there were no complications. The results of the coronary calcification analysis are provided below. Findings Coronary Artery Left Main (LM): 149 Left Anterior Descending (LAD): 318 Left Circumflex (LCX): 135 Right Coronary Artery (RCA): 417 Total Agatston Score: 1,019 Percentile Ranking: Greater than 90th percentile Calcium Scoring Interpretation: Different methods to categorize the overall amount of coronary plaque. Overall amount CAC SIS Visual of coronary plaque P1 Mild -100 <2 1-2 vessels with mild amount of plaque P2 Moderate 101-300 3-4 1-2 vessels with moderate amount, 3 vessels with mild amount of plaque P3 Severe 301-999 5-7 3 vessels with moderate amount, 1 vessel with severe amount of plaque P4 Extensive >1000 >8 2-3 vessels with severe amount of plaque Calcium Score: Extensive: 2-3 vessels w/severe amount of plaque Conclusion: Extensive three-vessel plaquing noted 12/25/24 1753 Date Álvaro Aparicio MD Cosigner Signature (if applicable): Date CC: Dr. Álvaro Aparicio MD; Dr. Naima Estevez, DO Signed Normal [facility] Limited Chest CT Cardiac Onl yon 12-15-[address] Cardiac Only [facility] Imaging Services [address] [place] [address] Cardiac Only MR#: [id number] Acct: [id number] Name: STEPHAN ARAMBULA Rep #: [id number] : 1960 M 64 From: Nico Rouse PCP: Dr. Naima Estevez, Status: REG REF Study: Limited Chest CT Cardiac Only Date of Exam: Exam# [id number] Ordering Dr: Naima Estevez DO PROCEDURE: LIMITED CHEST CT CARDIAC ONLY REASON FOR EXAM: SCREENING TECHNIQUE: CT for coronary artery calcium scoring.. One or more dose reduction techniques were used (e.g., Automated exposure control, adjustment of the mA and/or kV according to patient size, use of iterative reconstruction technique). COMPARISON: Abdomen and pelvis CT 10/12/2023. CT/Limited Chest CT Cardiac Only IMPRESSION: Bilateral lower lung areas of scarring and/or discoid atelectasis are seen. In the lateral basal right lower lobe, again seen is small nodule, currently measured at 7 x 5 mm. This appears to have increased in size since the prior study, however. This is concerning for possible MALIGNANCY. Consider further evaluation with PET-CT. No pleural effusion or pneumothorax is seen in visualized areas. No adenopathy is noted. The visualized upper abdomen demonstrates no significant abnormality. Reading Location: [address] CC: Dr. Naima Estevez DO Jig Builder: Signed Normal [facility] Discharge Instructionon 11-10 Discharge Instruction [facility] Medical Records Department [address] [place] [address] Instructions for Home/Discharge Instructions 12/06/24 1538 MR#: [id number] Acct: [id number] Name: STEPHAN ARAMBULA Rep #: [id number] : 1960 64 From: César Ríos MD PCP: Dr. Naima Estevez, Status:REG SDC Discharge Instructions Diet Discharge Diet: No restrictions DC O2, CPAP, BIPAP needs Home O2 Discharge instructions: No Dressing / Incision Discharge Activity: Return to Normal Activity and May Not Drive (while taking narcotic pain medications.) Dressing / Incision Call your doctor if you observe: Fever of 101 or Higher Follow Up Care Please Follow Up With: Césra Ríos MD When: Call [phone] for an appointment Test Results: Test results from this visit will be discussed in further detail at your follow-up appointment, if applicable. Discharge Plan Admission Primary Reason for Your Visit: Resection of bladder tumor Attending Provider: César Ríos Primary Care Provider: Naima Estevez Instructions Print Language: Cook Islander Discharge Orders/Prescriptions Prescriptions: New ibuprofen 600 mg tablet 600 mg PO Q6H PRN (Reason: pain) Qty: 20 0RF phenazopyridine [Pyridium] 100 mg tablet 100 mg PO TID PRN (Reason: pain) Qty: 14 0RF acetaminophen 500 mg capsule 500 mg PO Q4H PRN (Reason: pain) Qty: 20 0RF tamsulosin [Flomax] 0.4 mg capsule 0.4 mg PO DAILY PRN (Reason: difficulty voiding) Qty: 10 0RF Continued fluticasone propion-salmeterol [Advair Diskus] 1 PUFF inhaler 1 puff inhalation BID albuterol sulfate [Ventolin HFA] 1 INHALER inhaler 1 - 2 puff inhalation Q4H PRN PRN (Reason: Asthma) omeprazole 20 mg capsule,delayed release(DR/EC) 20 mg PO DAILY PRN (Reason: acid reflux) ibuprofen 600 mg tablet 600 mg PO Q6H PRN (Reason: pain) Qty: 20 0RF citalopram 10 mg tablet 10 mg PO DAILY Referrals / Follow Up: César Ríos MD [Med Staff - Active Staff] - Naima Estevez DO [Primary Care Provider] - Disposition Disposition (needs filled in before D/C Order can be placed): Home, Self Care 12/06/24 0627 César Ríos MD CC: Dr. Naima Estevez DO Signed Normal [facility] Immunohistochemical Stainson 12-06-2024 Immunohistochemical Stains Patient Age/Sex Location Account Attending Physician STEPHAN ARAMBULA 64/M [facility] [id number] Dr. César Ríos MD Specimen: [id number] Received: 12/07/24 Status: JERMAIN [place] Num: [id number] Spec Type: BLADDER BX Subm Dr: Dr. César Ríos MD HEADER OPERATION: Transurethral resection bladder tumor PRE-OP DIAGNOSIS: Bladder tumor TISSUE SUBMITTED: A- Bladder tumor MICROSCOPIC DIAGNOSIS A. Bladder, tumor, transurethral resection of bladder tumor: * Focal scant residual urothelium with reactive/inflammatory change - see note and Comment. * Lamina propria present with active chronic inflammation, negative for neoplasia. * Muscularis propria identified, negative for neoplasia. * Note: The residual urothelium is negative for CK20. Ki67 is not significantly increased. The p53 is wild-type. These findings support the histologic impression of benign urothelium. COMMENT Selected slides/images were reviewed in intradepartmental consultation by Dr Majo Wynn ([facility] pathology division, [facility]). MICROSCOPIC DESCRIPTION Slides are reviewed. All matched controls reacted appropriately. These tests were developed and their performance characteristics determined by [facility]. They may not have been cleared or approved by the U.S. Food and Drug Administration. The FDA has determined that such clearance or approval is not necessary.??? The above immunohistochemical/dualISH ???markers are ordered and reviewed by the Pathologist. GROSS DESCRIPTION A. Received in formalin in a container labeled with the patient's name, date of , and bladder tumor are multiple langford-pink fragments of soft tissue measuring 1.6 x 0.7 x 0.4 cm in aggregate and approximately 0.3 g together. The specimen is submitted in toto in A1. [facility] 12-07-2024 CPT:17017, 69822, 51264e5 Patient Age/Sex Location Account Attending Physician STEPHAN ARAMBULA 64/M [facility] [place] [id number] Dr. César Ríos MD Signed (signature on file) Dr. Selena Lopez MD 12/13/24 8792 Normal [facility] Comment on above: Performed By: #### P IMHI #### [facility] Laboratory [address] [facility] [place], [address] MR/POSTOP.ANEon 12-06-2024 MR/POSTOP.[facility] Medical Records Department [address] [place] [address] Anesthesia Postop Eval I 12/06/241629 MR#: [id number] Acct: [id number] Name: STEPHAN ARAMBULA Rep #: [id number] : 1960 64 From: Red Frye CRNA PCP: Dr. Naima Estevez, DO Status:REG SDC Y Race: C Location: [place] [address] Anesthesia: Postop Eval I Current Vital Signs Temperature: 97.9 F Pulse Rate: 83 Blood Pressure: 122/85 Respiratory Rate: 16 Pulse Ox: 95 Oxygen Delivery Method: Room Air Assessment Airway patent: Yes Spontaneous unlabored respirations: Yes Mental status: Awake and Calm nausea: No Vomiting: No Anesthesia Complication: No Fluid Hydration Crystalloid volume administer (ml): 500 Total IV fluid infused: 500 Progress Note Anesthesia document: Postop Eval 1 completed: Yes 12/06/241629 Date Red Frye CRNA Cosigner Signature: Date CC: Signed Normal [facility] [id number] 12-06-2024 MR/POSTOPAN2 [facility] Medical Records Department [address] [place] [address] Anesthesia Postop Eval II 12/06/242047 MR#: [id number] Acct: [id number] Name: STEPHAN ARAMBULA Rep #: [id number] : 1960 64 From: Estiven Dudley MD PCP: Dr. Naima Estevez, DO Status:[facility] Y Race: C [place] [facility] [place]esthesia Postop Eval I Sum Postop Eval Completion status Anesthesia document: Postop Eval 1 completed: Yes Anesthesia Postop Eval I Summary Anesthesia Postop Eval I Summary: Anesthesia Postop Eval I: Assessment Summary Airway patent Yes 12/06/24 16:30 APARTMENT LOCATOR.SOBR Spontaneous unlabored Yes 12/06/24 16:30 APARTMENT LOCATOR.SOBR respirations Mental status Awake,Calm 12/06/24 16:30 APARTMENT LOCATOR.SOBR nausea No 12/06/24 16:30 APARTMENT LOCATOR.SOBR Vomiting No 12/06/24 16:30 APARTMENT LOCATOR.SOBR Anesthesia Postop Eval I: Fluid Summary Crystalloid volume administer 500 12/06/24 16:30 APARTMENT LOCATOR.SOBR (ml) Colloids volume administered ( ml) Blood Product volume administered (ml) Total IV fluid infused 500 12/06/24 16:30 APARTMENT LOCATOR.SOBR Anesthesia Postop Eval I: Summary Notes Anesthesia Complication No 12/06/24 16:30 APARTMENT LOCATOR.SOBR Anesthesia Complication Comment: Post-operative progress note Anesthesia: Postop Eval II Evaluation Mental status: Awake and Calm Pain Level: 1 nausea: No Vomiting: No Complications Anesthesia Complication: No 12/06/242047 Estiven Dudley MD Cosigner Signature: Date CC: Signed Normal [facility] Operative Reporton Operative Report [facility] Medical Records Department [address] [place] [address] Operative Report 12/06/24 1617 MR#: [id number] Acct: [id number] Name: STEPHAN ARAMBULA Rep #: [id number] : 1960 64 From: César Ríos MD PCP: Dr. Naima Estevez, DO Status:[facility] Location: [place] [address] Operative Report (Standard) Operative Information Date of Procedure: 12/06/24 Pre-Operative Diagnosis: Bladder tumor history of bladder cancer multifocal Post-Operative Diagnosis: The same resection of tumor in the patient's right lateral wall resection site was 2 cm x 4 cm in size Surgery/Procedure Performed: Transurethral section of bladder tumor prison librarian: No Type of Anesthesia: General RN Documented Start/Stop Times: Operation Date: 12/06/24 14:45 Case Time Into Pre-Op 12/06/24 12:55 Out of Pre-Op 12/06/24 15:31 Anesthesia Start 12/06/24 15:43 Into Room 12/06/24 15:43 Procedure Start 12/06/24 16:00 Procedure End 12/06/24 16:16 Procedure Start Time: 16:00 Procedure Stop Time: 04:17 Select all DRAINS/GRAFTS/IMPLANTS that apply: Drains Drain details: lewis Estimated Blood Loss: Minimal Specimen collected: Yes Description of specimen(s) removed: Bladder tumor resected Description of surgery: This is a 64-year-old gentleman who presented with a very large mass occupying most of the bladder he underwent a fairly extensive resection of his bladder tumor completed BCG therapy after the BCG therapy located a complete response and then on follow-up cystoscopy there was an area of some lesion in the lateral wall of the bladder cystoscopy bladder bladder biopsy this was done ischemic and negative so we decided to continue with surveillance follow-up cystoscopy demonstrated more like a mass area in the area of the scar healing on the lateral wall the bladder the right lateral wall up towards the top there was an area that looked more papillary and suspicious for carcinoma so organ to do a resection today where the resectoscope. Patient was taken back to the operative room at this with induction of anesthesia he was underwent neurolytic paralyzation and was placed in dorsolithotomy position and went in the bladder with a 24 Tuvaluan noncontinuous flow Olympus bipolar resectoscope upon inspecting the bladder the right ureteral right and left ureteral orifices were not involved and inspected both these areas he had scar tissue where the the bladder contracted down on the right lateral wall and then toward the top of the scar tissue there was a bullous papillary area looking no suspicious for cancer. I then put in the resectoscope loop I started resecting on top of their resected through the area down to the muscle fibers and then resected the rest of the scar, and the way down so the area was about 2 cm wide and 4 cm long along the lateral wall of the bladder after resecting this area then I cauterized extensively to control hemostasis and cauterized the lobe of the bladder neck from bleeding from the scope all the tissue was sent off as a specimen we then put a catheter in the bladder and instilled Mitomycin-C in the bladder for postresection instillation. Anesthetic is reversed he is taken back to the PACU in good condition the drain the Lewis catheter in a hour and then remove the catheter for voiding trial patient go home after urinates. Surgical Findings: Tumors looking area in the lateral wall the bladder resected Complications Complications: No Admit VTE Documentation VTE Present on Admission: No VTE Mechan Device Prophylaxis: SCD's VTE Pharm Prophylaxis ordered?: No 12/06/24 1620 Cosigner Signature (if applicable): CC: Dr. César Ríos MD; Dr. Naima Estevez DO Signed Normal [facility] 12 Lead EKGon 12-05-2024 12 Lead EKG [facility] Cardiovascular Services [address] [place] [address] 12 Lead EKG 12/05/24 0803 MR#: [id number] Acct: [id number] Name: STEPHAN ARAMBULA Rep #: [id number] : 1960 64 From: Atif Mooney MD Attending Dr: Dr. César Ríos MD Status: DEP [facility] [place]: Berny Silva MD Date: 12/05/24 Location[place] [facility] [place] Sex: M C Admitted: Test Reason : PREOP Blood Pressure : */* mmHG Vent. Rate : 64 BPM Atrial Rate : 64 BPM P-R Int : 148 ms QRS Dur : 94 ms QT Int : 404 ms P-R-T Axes : 50 73 44 degrees QTcB Int : 416 ms Normal sinus rhythm Normal ECG Confirmed by Atif Mooney ([id number]), editor at large SYLWIA EASTON ([id number]) on 12/11/2024 12:52:45 PM Referred By: César Ríos Confirmed By: Atif Mooney 12/11/24 1252 Date Atif Mooney MD CC: Dr. Berny Silva MD; Dr. César Ríos MD; Dr. Naima Estevez DO Signed Normal [facility] Cytology report of Body flui d Cyto stainOrdered By: César Ríos on 11-30-2024 Cytology report Cyto stain Doc (Body fld) SEE PATHOLOGY REPORT [facility] Comment on above: Specimen submitted t o Anatomical Pathology Department for testing. Cytology, Body Fluid / CSFon 11-30-2024 CYTOLOGY,BF/CSF SEE PATHOLOGY REPORT Normal [facility] Comment on above: Order Comment: URINE Result Comment: Spec imen submitted to Anatomical Pathology Department for testing. Performed By: #### L 350.1000 ####[facility] [address] [place], [place], [address] Special Stain Group IIon Special Stain Group II Patient Age/Sex Location Account Attending Physician STEPHAN ARAMBULA 64[id number] César Ríos MD Specimen: [id number] Received: 11/30/24 Status: JERMAIN Branham Num: [id number] Spec Type: Fluid Subm Dr: Dr. César Ríos MD HEADER OPERATION: Not noted PRE-OP DIAGNOSIS: Malignant neoplasm of overlapping sites of bladder TISSUE SUBMITTED: A- Urine for cytology *voided* DIAGNOSIS CYTOLOGY A. Urine (cytospin): Suspicious for high grade urothelial carcinoma. CYTOLOGY STUDY Slides are reviewed. CYTOLOGY GROSS A. Received is 20 ml of orange-cloudy fluid labeled with the patient's name and and designated per the requisition as urine. Submitted for cytology preparation. Mr 11/30/2024 CPT: 01592 Signed (signature on file) Dr. Selena Lopez MD 12/13/24 1626 Normal [facility] Comment on above: Performed By: #### P SSII #### [facility] Laboratory [address] [place], [address] Discharge Instructionon Discharge Instruction [facility] Medical Records Department [address] [place] [address] Instructions for Home/Discharge Instructions 07/19/24 0900 MR#: [id number] Acct: [id number] Name: STEPHAN ARAMBULA Rep #: [id number] : 1960 64 From: César Ríos MD PCP: Dr. Naima Estevez DO Status:REG SDC Discharge Instructions Diet Discharge Diet: No restrictions DC O2, CPAP, BIPAP needs Home O2 Discharge instructions: No Dressing / Incision Discharge Activity: Return to Normal Activity and May Not Drive (while taking narcotic pain medications.) Dressing / Incision Call your doctor if you observe: Fever of 101 or Higher Follow Up Care Please Follow Up With: César Ríos MD When: Call [phone] for an appointment Test Results: Test results from this visit will be discussed in further detail at your follow-up appointment, if applicable. Discharge Plan Admission Primary Reason for Your Visit: cysto biopsy fulguration Attending Provider: César Ríos Primary Care Provider: Naima Estevez Instructions Print Language: Cook Islander Discharge Orders/Prescriptions Prescriptions: Continued fluticasone propion-salmeterol [Advair Diskus] 1 PUFF inhaler 1 puff inhalation BID albuterol sulfate [Ventolin HFA] 1 INHALER inhaler 1 - 2 puff inhalation Q4H PRN PRN (Reason: Asthma) omeprazole 20 mg capsule,delayed release(DR/EC) 20 mg PO DAILY PRN (Reason: acid reflux) ibuprofen 600 mg tablet 600 mg PO Q6H PRN (Reason: pain) Qty: 20 0RF Referrals / Follow Up: César Ríos MD [Med Staff - Active Staff] - Naima Estevez DO [Primary Care Provider] - Disposition Disposition (needs filled in before D/C Order can be placed): Home, Self Care 07/19/24 0900 César Ríos MD CC: Dr. Naima Estevez DO Signed Normal [facility] MR/POSTOP.ANEon 07-19-2024 MR/POSTOP.ANE [facility] Medical Records Department [address] [place] [address] Anesthesia Postop Eval I 07/19/24 0934 MR#: [id number] Acct: [id number] Name: STEPHAN ARAMBULA Rep #: [id number] : 1960 64 From: Kristina Lindo CRNA PCP: Dr. Naima Estevez, DO Status:[facility] Y Race: C Location: [place] [address] Anesthesia: Postop Eval I Current Vital Signs Temperature: 98.2 F Pulse Rate: 77 Blood Pressure: 113/69 Respiratory Rate: 20 Pulse Ox: 98 Oxygen Delivery Method: Room Air Assessment Airway patent: Yes Spontaneous unlabored respirations: Yes Mental status: Awake nausea: No Vomiting: No Anesthesia Complication: No Fluid Hydration Crystalloid volume administer (ml): 600 Total IV fluid infused: 600 Progress Note Anesthesia document: Postop Eval 1 completed: Yes 07/19/24 0936 Date Kristina Soni Signature: Date CC: Signed Normal [facility] MR/[id number] 07-19-2024 MR/POSTOPAN2 [facility] Medical Records Department [address] [place] [address] Anesthesia Postop Eval II 07/19/24 1342 MR#: [id number] Acct: [id number] Name: STEPHAN ARAMBULA Rep #: [id number] : 1960 64 From: Berny Silva MD PCP: Dr. Naima Estevez, DO Status:[place] [facility] [place] Race: C [place] [facility] Anesthesia Postop Eval I Sum Postop Eval Completion status Anesthesia document: Postop Eval 1 completed: Yes Anesthesia Postop Eval I Summary Anesthesia Postop Eval I Summary: Anesthesia Postop Eval I: Assessment Summary Airway patent Yes 07/19/24 09:36 APARTMENT LOCATOR.JSWI Spontaneous unlabored Yes 07/19/24 09:36 APARTMENT LOCATOR.JSWI respirations Mental status Awake 07/19/24 09:36 APARTMENT LOCATOR.JSWI nausea No 07/19/24 09:36 APARTMENT LOCATOR.JSWI Vomiting No 07/19/24 09:36 APARTMENT LOCATOR.JSWI Anesthesia Postop Eval I: Fluid Summary Crystalloid volume administer 600 07/19/24 09:36 APARTMENT LOCATOR.JSWI (ml) Colloids volume administered ( ml) Blood Product volume administered (ml) Total IV fluid infused 600 07/19/24 09:36 APARTMENT LOCATOR.JSWI Anesthesia Postop Eval I: Summary Notes Anesthesia Complication No 07/19/24 09:36 APARTMENT LOCATOR.JSWI Anesthesia Complication Comment: Post-operative progress note Anesthesia: Postop Eval II Evaluation Mental status: Awake Pain Level: 0 nausea: No Vomiting: No 07/19/24 1342 Date Berny Silva MD Cosigner Signature: Date CC: Signed Normal [facility] Operative Reporton 5 Operative Report [facility] Medical Records Department [address] [place] [address] Operative Report 07/19/24924 MR#: [id number] Acct: [id number] Name: STEPHAN ARAMBULA Rep #: [id number] : 1960 64 From: César Ríos MD PCP: Dr. Naima Estevez, DO Status:[facility] Location: [place] [address] Operative Report (Standard) Operative Information Date of Procedure: 07/19/24 Pre-Operative Diagnosis: History of bladder cancer bladder lesion Post-Operative Diagnosis: The same Surgery/Procedure Performed: Cystoscopy and biopsy of bladder lesion and fulguration of site prison librarian: No Type of Anesthesia: General RN Documented Start/Stop Times: Operation Date: 07/19/24 08:45 Case Time Into Pre-Op 07/19/24 06:47 Out of Pre-Op 07/19/24 08:57 Procedure Start Time: 09:14 Procedure Stop Time: 09:26 Select all DRAINS/GRAFTS/IMPLANTS that apply: None Estimated Blood Loss: 0 Specimen collected: Yes Description of specimen(s) removed: Bladder biopsy Description of surgery: This is a 64-year-old male who was found to have an extensive mount of bladder cancer this was all resected and he completed BCG therapy surveillance cystoscopy has been clear but recently on cystoscopy is found to have a lesion in the lateral wall of the bladder it is unclear if this lesion is small recurrence or just inflammatory changes from the bladder wall. Recommended we do a biopsy patient was okay with this. Patient was taken back to the operating room after smooth induction of anesthesia he was placed in dorsolithotomy position went into the bladder with a 21 Tuvaluan rigid cystourethroscope the entire length urethra was normal the prostate was normal inside the bladder the left and right ureteral orifice were clear and open and clear of tumors and normal no papillary tumors were seen there was just a reddish inflammatory lesion erythematous lesion in the patient's bladder wall the bladder it was on the right lateral wall the bladder a cold cup biopsy was taken of this lesion and then I used a Bugbee electrode and cauterized this extensively drained the bladder and watch the area there was no signs of bleeding from the cauterization site I then removed the cystoscope and the patient was taken back to PACU in good condition we will see him back in a few weeks to follow-up after the biopsies. Surgical Findings: Lesion on the tright lateral wall of the bladder possible just inflammation possible tumor Complications Complications: No Admit VTE Documentation VTE Present on Admission: No VTE Mechan Device Prophylaxis: SCD's VTE Pharm Prophylaxis ordered?: No 07/19/2486 Cosigner Signature (if applicable): CC: Dr. César Ríos MD; Dr. Naima Estevez DO Signed Normal [facility] Surgery Specimen Level Ena 07-19-2024 Surgery Specimen Level IV Patient Age/Sex Location Account Attending Physician STEPHAN ARAMBULA 64/M [facility] [id number] Dr. César Ríos MD Specimen: [id number] Received: 07/19/24 Status: JERMAIN Branham Num: [id number] Spec Type: BLADDER BX Subm Dr: Dr. César Ríos MD HEADER OPERATION: Fulguration, cysto, biopsy PRE-OP DIAGNOSIS: Bladder cancer TISSUE SUBMITTED: Bladder lesion MICROSCOPIC DIAGNOSIS Bladder lesion, biopsy: A fragment of urothelial mucosa with chronic inflammation. Negative for malignancy. See comment. SJ.mr 07/20/2024 COMMENT Epithelium is denuded in most of the specimen. Correlation with clinical, cystoscopic findings and appropriate follow up are necessary. MICROSCOPIC DESCRIPTION Slides are reviewed. GROSS DESCRIPTION Received in fixative is one container labeled with the patient's name and designated Bladder lesion. The specimen consists of one irregular fragment of light langford soft tissue that measures 0.2 x 0.2 x 0.1 cm. The specimen is totally submitted in one cassette. 07/19/2024 TC:3 CPT:14272 Patient Age/Sex Location Account Attending Physician STEPHAN ARAMBULA 64/M [facility] [place] [id number] Dr. César Ríos MD Signed (signature on file) Dr. Maxwell Diaz MD 07/20/24 1345 Normal [facility] Comment on above: Performed By: #### P SUIV ####[facility] [address] [place], [address] Urine Cultureon 05-20-2024 URC Culture exhibits no growth. Normal [facility] Comment on above: Performed By: #### L 100.0100, L501.9985, L501.9940, M100.2200, L500.4100, L500.4050, L400.2010 ####[facility] [address] [place], [address] CBC W/Diff, Automatedon Absolute Lymph 1.32 X10 3/uL Normal 0.83-4.51 [facility] Comment on above: Performed By: #### L 100.0100, L501.9985, L501.9940, M100.2200, L500.4100, L500.4050, L400.2010 #### [facility] Laboratory [address] [place], [address] Absolute Neut 3.5 X10 3/uL Normal 2.0-7.7 [facility] Comment on above: Performed By: #### L 100.0100, L501.9985, L501.9940, M100.2200, L500.4100, L500.4050, L400.2010 #### [facility] [address] [place], [address] Basophils/100 WBC (Bld) 0.7 % Normal 0-1 [facility] Comment on above: Performed By: #### L 100.0100, L501.9985, L501.9940, M100.2200, L500.4100, L500.4050, L400.2010 #### [facility] [address] [place], [address] Eosinophils/100 WBC (Bld) 7.5 % High 0-5 [facility] Comment on above: Performed By: #### L 100.0100, L501.9985, L501.9940, M100.2200, L500.4100, L500.4050, L400.2010 #### [facility] [address] [place], [address] Erythrocyte distribution width (RBC) [Ratio] 13.9 % Normal 11.6-14.6 [facility] Comment on above: Performed By: #### L 100.0100, L501.9985, L501.9940, M100.2200, L500.4100, L500.4050, L400.2010 #### [facility] [address] [place], [address] Hematocrit (Bld) [Volume fraction] 42.1 % Normal 40-54 [facility] Comment on above: Performed By: #### L 100.0100, L501.9985, L501.9940, M100.2200, L500.4100, L500.4050, L400.2010 #### [facility] [address] [place], [address] Hemoglobin (Bld) [Mass/Vol] 13.6 g/dL Normal 13.0-16.5 [facility] Comment on above: Performed By: #### L 100.0100, L501.9985, L501.9940, M100.2200, L500.4100, L500.4050, L400.2010 #### [facility] [address] [place], [address] IG% 0.300 Normal 0.0-0.9 [facility] Comment on above: Result Comment: IG% - Immature Granulocytes (promyelocytes, myelocytes and metamyelocytes) > 1% indicates that a LEFT SHIFT is Present. Performed By: #### L 100.0100, L501.9985, L501.9940, M100.2200, L500.4100, L500.4050, L400.2010 #### [facility] [address] [place], [address] Lymphocytes/100 WBC (Bld) 22.4 % Normal 19-41 [facility] Comment on above: Performed By: #### L 100.0100, L501.9985, L501.9940, M100.2200, L500.4100, L500.4050, L400.2010 #### [facility] [address] [place], [address] MCH (RBC) [Entitic mass] 28.5 pg Normal 27.0-32.0 [facility] Comment on above: Performed By: #### L 100.0100, L501.9985, L501.9940, M100.2200, L500.4100, L500.4050, L400.2010 #### [facility] [address] [place], [address] MCHC (RBC) [Mass/Vol] 32.3 g/dL Normal 32-36 [facility] Comment on above: Performed By: #### L 100.0100, L501.9985, L501.9940, M100.2200, L500.4100, L500.4050, L400.2010 #### [facility] [address] [place], [address] MCV (RBC) [Entitic vol] 88.3 fL Normal 80-94 [facility] Comment on above: Performed By: #### L 100.0100, L501.9985, L501.9940, M100.2200, L500.4100, L500.4050, L400.2010 #### [facility] [address] [place], [address] Monocytes/100 WBC (Bld) 10.5 % High 0-10 [facility] Comment on above: Performed By: #### L 100.0100, L501.9985, L501.9940, M100.2200, L500.4100, L500.4050, L400.2010 #### [facility] [address] [place], [address] Neutrophils/100 WBC (Bld) 58.6 % Normal 47-70 [facility] Comment on above: Performed By: #### L 100.0100, L501.9985, L501.9940, M100.2200, L500.4100, L500.4050, L400.2010 #### [facility] [address] [place], [address] Nucleated RBC (Bld) [#/Vol] 0 10*3/uL Normal 0-5 [facility] Comment on above: Performed By: #### L 100.0100, L501.9985, L501.9940, M100.2200, L500.4100, L500.4050, L400.2010 #### [facility] [address] [place], [address] Platelet mean volume (Bld) [Entitic vol] 9.3 fL Normal 6.2-12.0 [facility] Comment on above: Performed By: #### L 100.0100, L501.9985, L501.9940, M100.2200, L500.4100, L500.4050, L400.2010 #### [facility] [address] [place], [address] Platelets (Bld) [#/Vol] 226 10*3/uL Normal 150-450 [facility] Comment on above: Performed By: #### L 100.0100, L501.9985, L501.9940, M100.2200, L500.4100, L500.4050, L400.2010 #### [facility] [address] [place], [address] RBC (Bld) [#/Vol] 4.77 10*6/uL Normal 4.6-6.2 [facility] Comment on above: Performed By: #### L 100.0100, L501.9985, L501.9940, M100.2200, L500.4100, L500.4050, L400.2010 #### [facility] [address] [place], [address] RDW SD 45.3 fl High 35.1-43.9 [facility] Comment on above: Performed By: #### L 100.0100, L501.9985, L501.9940, M100.2200, L500.4100, L500.4050, L400.2010 #### [facility] [address] [place], [address] WBC (Bld) [#/Vol] 5.9 10*3/uL Normal 4.4-11.0 [facility] Comment on above: Performed By: #### L 100.0100, L501.9985, L501.9940, M100.2200, L500.4100, L500.4050, L400.2010 #### [facility] [address] [place], [address] Comprehensive Metabolic Prof [facility] 05-19-2024 Albumin [Mass/Vol] 4.3 g/dL Normal 3.2-5.0 [facility] Comment on above: Performed By: #### L 100.0100, L501.9985, L501.9940, M100.2200, L500.4100, L500.4050, L400.2010 ####[facility] [address] [place], [address] Albumin/Globulin [Mass ratio] 1.3 {ratio} Normal 0.9-2.4 [facility] Comment on above: Performed By: #### L 100.0100, L501.9985, L501.9940, M100.2200, L500.4100, L500.4050, L400.2010 ####[facility] [address] [place], [address] ALK P 71 U/L Normal 45-117 [facility] Comment on above: Performed By: #### L 100.0100, L501.9985, L501.9940, M100.2200, L500.4100, L500.4050, L400.2010 ####[facility] [address] [place], [address] ALT [Catalytic activity/Vol] 27 U/L Normal 16-61 [facility] Comment on above: Performed By: #### L 100.0100, L501.9985, L501.9940, M100.2200, L500.4100, L500.4050, L400.2010 ####[facility] [address] [place], [address] AST [Catalytic activity/Vol] 19 U/L Normal 15-37 [facility] Comment on above: Performed By: #### L 100.0100, L501.9985, L501.9940, M100.2200, L500.4100, L500.4050, L400.2010 ####[facility] [address] [place], [address] Bilirubin [Mass/Vol] 0.40 mg/dL Normal 0.20-1.00 [facility] Comment on above: Result Comment: For patients on eltrombopag therapy, use of Dimension Sharps TBIL is not recommended. Performed By: #### L 100.0100, L501.9985, L501.9940, M100.2200, L500.4100, L500.4050, L400.2010 ####[facility] [address] [place], [address] BUN/CRE 18.7 RATIO Normal 10-20 [facility] Comment on above: Performed By: #### L 100.0100, L501.9985, L501.9940, M100.2200, L500.4100, L500.4050, L400.2010 ####[facility] [address] [place], [address] CA,Total 9.0 mg/dL Normal 8.5-10.1 [facility] Comment on above: Performed By: #### L 100.0100, L501.9985, L501.9940, M100.2200, L500.4100, L500.4050, L400.2010 ####[facility] [address] [place], [address] Chloride [Moles/Vol] 103 mmol/L Normal 98-107 [facility] Comment on above: Performed By: #### L 100.0100, L501.9985, L501.9940, M100.2200, L500.4100, L500.4050, L400.2010 ####[facility] [address] [place], [address] CO2 [Moles/Vol] 29.0 mmol/L Normal 21.0-32.0 [facility] Comment on above: Performed By: #### L 100.0100, L501.9985, L501.9940, M100.2200, L500.4100, L500.4050, L400.2010 ####[facility] [address] [place], [address] Creatinine [Mass/Vol] 1.07 mg/dL Normal 0.70-1.30 [facility] Comment on above: Result Comment: The validity of the calculated GFR GFRAA in patients over 70 years has not been determined. Clinical correlation is essential. Performed By: #### L 100.0100, L501.9985, L501.9940, M100.2200, L500.4100, L500.4050, L400.2010 ####[facility] [address] [place], [address] EST GFR - AA 89 mL/min Normal >60 [facility] Comment on above: Result Comment: Afri can English GFR Calc Performed By: #### L 100.0100, L501.9985, L501.9940, M100.2200, L500.4100, L500.4050, L400.2010 ####[facility] [address] [place], [address] GAP 5 Normal 5-15 [facility] Comment on above: Performed By: #### L 100.0100, L501.9985, L501.9940, M100.2200, L500.4100, L500.4050, L400.2010 ####[facility] [address] [place], [address] GFR/1.73 sq M.predicted among non-blacks MDRD (S/P/Bld) [Vol rate/Area] 74 mL/min/{1.73_m2} Normal >60 [facility] Comment on above: Result Comment: Non- GFR Calc Performed By: #### L 100.0100, L501.9985, L501.9940, M100.2200, L500.4100, L500.4050, L400.2010 ####[facility] [address] [place], [address] Globulin (S) [Mass/Vol] 3.3 g/dL Normal 2.2-4.2 [facility] Comment on above: Performed By: #### L 100.0100, L501.9985, L501.9940, M100.2200, L500.4100, L500.4050, L400.2010 ####[facility] [address] [place], [address] Glucose [Mass/Vol] 100 mg/dL Normal 74-106 [facility] Comment on above: Result Comment: Fast ing Glucose result from 100 to 125 mg/dL suggests IMPAIRED HOMEOSTASIS per A.D.A. criteria. Performed By: #### L 100.0100, L501.9985, L501.9940, M100.2200, L500.4100, L500.4050, L400.2010 ####[facility] [address] [place], [address] Potassium [Moles/Vol] 4.2 mmol/L Normal 3.5-5.1 [facility] Comment on above: Performed By: #### L 100.0100, L501.9985, L501.9940, M100.2200, L500.4100, L500.4050, L400.2010 ####[facility] [address] [place], [address] Sodium [Moles/Vol] 137 mmol/L Normal 136-145 [facility] Comment on above: Performed By: #### L 100.0100, L501.9985, L501.9940, M100.2200, L500.4100, L500.4050, L400.2010 ####[facility] [address] [place], [address] T PROT 7.6 g/dL Normal 6.4-8.2 [facility] Comment on above: Performed By: #### L 100.0100, L501.9985, L501.9940, M100.2200, L500.4100, L500.4050, L400.2010 ####[facility] [address] [place], [address] Urea nitrogen [Mass/Vol] 20 mg/dL High 7-18 [facility] Comment on above: Performed By: #### L 100.0100, L501.9985, L501.9940, M100.2200, L500.4100, L500.4050, L400.2010 ####[facility] [address] [place], [address] Hemoglobin A1con 05-19-2024 HbA1c (Bld) [Mass fraction] 5.9 % High 3.8-5.6 [facility] Comment on above: Result Comment: Norm al < 5.7 % Prediabetic 5.7 - 6.4 % Diabetic >or= 6.5 % Please note range changes. Performed By: #### L 100.0100, L501.9985, L501.9940, M100.2200, L500.4100, L500.4050, L400.2010 ####[facility] [address] [place], [address] Lipid Profileon 05-19-2024 Cholesterol [Mass/Vol] 269 mg/dL High 200 [facility] Comment on above: Result Comment: <200 mg/dL Desirable 200-240 mg/dL Borderline >240 mg/dL High Risk Performed By: #### L 100.0100, L501.9985, L501.9940, M100.2200, L500.4100, L500.4050, L400.2010 ####[facility] [address] [place], [place], [id number] Cholesterol in HDL [Mass/Vol] 51 mg/dL Normal [facility] Comment on above: Result Comment: The drugs N-Acetylcysteine and Metamizole may falsely depress this assay. Reference Range HDL <40 mg/dL Low HDL Cholesterol HDL >or= 60 mg/dL High HDL Cholesterol Performed By: #### L 100.0100, L501.9985, L501.9940, M100.2200, L500.4100, L500.4050, L400.2010 ####[facility] [address] [place], [address] Cholesterol in LDL [Mass/Vol] 197 mg/dL High 0-130 [facility] Comment on above: Performed By: #### L 100.0100, L501.9985, L501.9940, M100.2200, L500.4100, L500.4050, L400.2010 ####[facility] [address] [place], [address] Cholesterol in VLDL [Mass/Vol] 21 mg/dL Normal 5-40 [facility] Comment on above: Performed By: #### L 100.0100, L501.9985, L501.9940, M100.2200, L500.4100, L500.4050, L400.2010 ####[facility] [address] [place], [address] Triglyceride [Mass/Vol] 103 mg/dL Normal [facility] Comment on above: Result Comment: The drugs N-Acetylcysteine and Metamizole may falsely depress this assay. Serum Triglycerides Reference Interval Normal <150 mg/dL Borderline high 150 - 199 mg/dL High 200 - 499 mg/dL Very High > or = 500 mg/dL Performed By: #### L 100.0100, L501.9985, L501.9940, M100.2200, L500.4100, L500.4050, L400.2010 ####[facility] [address] [place], [place], [id number](024) PSA,Total- Diagnosticon 11-0 PSA, DIAGNOSTIC 2.07 ng/mL Normal 0.0-4.0 [facility] Comment on above: Result Comment: This test was performed using the TPSA assay method for the [employer] chemistry system. Values obtained with different assay methods cannot be used interchangably. When changing PSA assays in the course of monitoring a patient, additional sequential testing should be carried out to confirm baseline values. Performed By: #### L 100.0100, L501.9985, L501.9940, M100.2200, L500.4100, L500.4050, L400.2010 ####[facility] [address] [place], [address] Urinalysis, Routine (Dipstic k)on 05-19-2024 BILIRUBIN URINE Negative Normal Negative [facility] Comment on above: Order Comment: Urine , Random Performed By: #### L 100.0100, L501.9985, L501.9940, M100.2200, L500.4100, L500.4050, L400.2010 #### [facility] [address] [place], [address] Clarity (U) Clear Normal Clear [facility] Comment on above: Order Comment: Urine , Random Performed By: #### L 100.0100, L501.9985, L501.9940, M100.2200, L500.4100, L500.4050, L400.2010 #### [facility] [address] [place], [address] Color (U) Yellow Normal Yellow [facility] Comment on above: Order Comment: Urine , Random Performed By: #### L 100.0100, L501.9985, L501.9940, M100.2200, L500.4100, L500.4050, L400.2010 #### [facility] [address] [place], [address] GLUCOSE, UR Normal Normal Normal [facility] Comment on above: Order Comment: Urine , Random Performed By: #### L 100.0100, L501.9985, L501.9940, M100.2200, L500.4100, L500.4050, L400.2010 #### [facility] [address] [place], [address] KETONE UR Negative Normal Negative [facility] Comment on above: Order Comment: Urine , Random Performed By: #### L 100.0100, L501.9985, L501.9940, M100.2200, L500.4100, L500.4050, L400.2010 #### [facility] [address] [place], [address] LEUK ESTERASE Negative Normal Negative [facility] Comment on above: Order Comment: Urine , Random Performed By: #### L 100.0100, L501.9985, L501.9940, M100.2200, L500.4100, L500.4050, L400.2010 #### [facility] [address] [place], [address] Nitrite Ql (U) Negative Normal Negative [facility] Comment on above: Order Comment: Urine , Random Performed By: #### L 100.0100, L501.9985, L501.9940, M100.2200, L500.4100, L500.4050, L400.2010 #### [facility] [address] [place], [address] OCCULT BLOOD-UR Negative Normal Negative [facility] Comment on above: Order Comment: Urine , Random Performed By: #### L 100.0100, L501.9985, L501.9940, M100.2200, L500.4100, L500.4050, L400.2010 #### [facility] [address] [place], [address] pH UR 7.0 Normal 5.0 - 8.0 [facility] Comment on above: Order Comment: Urine , Random Performed By: #### L 100.0100, L501.9985, L501.9940, M100.2200, L500.4100, L500.4050, L400.2010 #### [facility] [address] [place], [address] PROT DIPSTX Negative Normal Negative [facility] Comment on above: Order Comment: Urine , Random Performed By: #### L 100.0100, L501.9985, L501.9940, M100.2200, L500.4100, L500.4050, L400.2010 #### [facility] [address] [place], [address] SP.GR. DIPSTX 1.005 Normal 1.002-1.03 0 [facility] Comment on above: Order Comment: Urine , Random Performed By: #### L 100.0100, L501.9985, L501.9940, M100.2200, L500.4100, L500.4050, L400.2010 #### [facility] [address] [place], [address] UROBILI Normal Normal Normal [facility] Comment on above: Order Comment: Urine , Random Performed By: #### L 100.0100, L501.9985, L501.9940, M100.2200, L500.4100, L500.4050, L400.2010 #### [facility] [address] [place], [address] Culture, urineOrdered By: Atiya Ríos on 11-08-2023 Bacteria identified Cx Nom (U) Culture exhibits no growth. [facility] Basophil percentageOrdered B y: César Ríos on 10-12-2023 Creatinine [Mass/Vol] 1.6 mg/dL 0.70-1.30 [facility] - Chemistry and C hemistry - challengeOrdered By: César Ríos on 10-12-2023 GFR/1.73 sq M.predicted among non-blacks MDRD (S/P/Bld) [Vol rate/Area] 48.0000 mL/min/{1.73_m2} >60 [facility] Culture, urineOrdered By: Atiya Ríos on 10-06-2023 Bacteria identified Cx Nom (U) Culture exhibits no growth. [facility] No Panel InformationOrdered By: César Ríos on 10-04-2023 Prostate Specific Antigen Screen 1.72 ng/mL 0.00-4.00 [facility] Comment on above: This test was perfor med using the TPSA assay method for the[employer] chemistry system. Values obtained with differentassay methods cannot be used interchangably.When changing PSA assays in the course of monitoring apatient, additional sequential testing should be carriedout to confirm baseline values. Cytology report of Body flui d Cyto stainOrdered By: Naima Estevez on 09-28-2023 Cytology report Cyto stain Doc (Body fld) SEE PATHOLOGY REPORT [facility] Comment on above: Specimen submitted t o Anatomical Pathology Department for testing. 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 Hadx-rays completed which showed curvature of his lumbar spine and DDD. Did followwith Dr. Armendariz in [place] but unable to follow up with him due to [facility]. 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 Has tried chiropractic treatment butit wouldn't last. Lays in bed at night with grinding and popping in his hip,which is painful. 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- Unspecified sleep apnea improved w somnoplastyPrevious Surgical HistoryPAST SURGICAL HISTORYProcedure Laterality Date- [facility]- EGD W/O OR W/BRUSH/WASH 11/09/12 EGD- PALATE/UVULA SURGERY UNLISTED 1996 Somnoplasty - for MAURI- PAST SURGICAL HISTORY OF Left 08/25/2016 Left shoulder surgery, bicep/rotator cuff repairFamily HistoryFAMILY HISTORYProblem Relation Age of Onset- Allergies Mother- Allergies Brother- Coronary Artery Disease Father age 39- Diabetes Paternal Grandfather- Ischemic Heart Disease FatherPatient AllergiesALLERGIESAllergen Reactions- Percocet [Oxycodone* Itching- Environmental [Othe*Current MedicationsCurrent Outpatient Prescriptions on File Prior to Visit:citalopram (CELEXA) 40 mg tablet Take 1 tablet by mouth once daily.albuterol HFA (PROAIR HFA) 90 mcg/actuation inhaler Inhale 2 Puffs asinstructed every 6 hours as needed for Wheezing/Shortness of Breath.fluticasone-salmeter ol (ADVAIR DISKUS) 250-50 mcg/dose dsdv Inhale 1 Puff asinstructed twice daily. 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 Pain when moving leg inward and outHealth Maintenance ListONE PNEUMOVAX PRIOR TO AGE 65 due on 02/09/1979HEPATITIS C SCREENING due on 2004INFLUENZA(1) due on 03/12/2017DIABETES SCREEN due on 04/18/2017TETANUS due on 12/21/2018LIPID SCREEN due on 1COLORECTAL CANCER SCREENING,SEE MODIFIER due on 3PROSTATE CANCER SCREENING DISCUSSION CompletedData reviewedNoneASSESSMENT/PLAN :1. Chronic right-sided low back pain with right-sided sciatica - ICD9: 724.2,724.3, 338.29, ICD10: M54.41, G89.29Chronic low back pain with sciatica- Start Prednisone- Consult to PTFollow up as neededNaima Grande MDThe documentation for this note was completed by Katie Mendez Ma acting asscribe for Naima Grande MD. April 13, 2017 4:31 PM.Referring Provider: SELF [200]Allergies As of Date: 04/13/2017 Noted Allergy ReactionPERCOCET (OXYCODONE-ACETAMINOPHEN) 9 - Itchingenvironmental [Other] 12/27/2006Date Reviewed: 04/13/2017Reviewed by: Katie Mendez Ma - Fully AssessedReason for Visit: Back Pain [12]Primary Visit Diagnosis:Chronic right-sided low back pain with right-sided sciatica [M54.41, G89.29]Order(s):predniSONE (DELTASONE) 10 mg tabletTake 4 tabs daily x5 days, then 2 tabs daily for 5 days, then 1 tab daily for 5 days.Disp: 35 tabletRfl: 0 CONSULT TO PHYSICAL THERAPY [9032] Order #: [id number]: 1Prescriptions as of 04/13/2017 Sig: CITALOPRAM 40 MG TABLET Take 1 tablet by mouth once d* ALBUTEROL SULFATE HFA 90 MCG/* Inhale 2 Puffs as instructed * FLUTICASONE 250 MCG-SALMETERO* Inhale 1 Puff as instructed t* PREDNISONE 10 MG TABLET Take 4 tabs daily x5 days, th*Problem List As Of Date 04/13/2017 Noted Resolved MALIG NEOPLASM SKIN TRUNK [173.5] INVALID FOR* Adjustment Disorder with Depressed Mood [F43.21]INVALID FOR* Seasonal Allergies [J30.2] INVALID FOR* Asthma [J45.909] INVALID FOR* GERD (gastroesophageal reflux disease) [K21.9] INVALID FOR* Hyperlipidemia [E78.5] INVALID FOR* Depression [F32.9] INVALID FOR* Contusion of left hip [S70.02XA] INVALID FOR* Left shoulder strain [S46.912A] INVALID FOR* Anxiety and depression [F41.8] INVALID FOR* Chronic right-sided low back pain with right-si*INVALID FOR*Prescriptions ordered this encounter Disp Refills Start End PREDNISONE 10 MG TABLET 35 t* 0 04/13/2017 04/28/2017 Sig: Take 4 tabs daily x5 days, then 2 tabs daily for 5 days, then 1 tab daily for 5 days.Disposition: Return if symptoms worsen or fail to improve.Follow-up and Disposition History RecordedEncounter Number: [id number] Status:Closed by NAIMA GRANDE MD on 04/14/17 [facility] PROGRESSon 04-13-2017 PROGRESS HNO ID: [id number] thor: Naima GrandeService: (none)Author Type: PhysicianType: Progress NotesFiled: 04/14/2017 7:27 PMNote Text:Chief ComplaintPatient presents with:Back PainHPIDamagy Arambula is a 57 year old male who presents here today for back pain.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 Armendariz in [place] but unable to follow up with him dueto him no longer being with [facility]. Is worried due to the only job he knowsis Construction due to not finishing college and not qualified to do otherjobs. 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 Hastried chiropractic treatment but it wouldn't last. Lays in bed at nightwith grinding and popping in his hip, which is painful. 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- Unspecified sleep apnea improved w somnoplastyPrevious Surgical HistoryPAST SURGICAL HISTORYProcedure Laterality Date- COLONOSCOP W/ OR W/O [facility] SPEC 11/09/12 Colonoscopy- EGD W/O OR W/BRUSH/WASH 11/09/12 EGD- PALATE/UVULA SURGERY UNLISTED 1996 Somnoplasty - for MAURI- PAST SURGICAL HISTORY OF Left 08/25/2016 Left shoulder surgery, bicep/rotator cuff repairFamily HistoryFAMILY HISTORYProblem Relation Age of Onset- Allergies Mother- Allergies Brother- Coronary Artery Disease Father age 39- Diabetes Paternal Grandfather- Ischemic Heart Disease FatherPatient AllergiesALLERGIESAllergen Reactions- Percocet [Oxycodone* Itching- Environmental [Othe*Current MedicationsCurrent Outpatient Prescriptions on File Prior to Visit:citalopram (CELEXA) 40 mg tablet Take 1 tablet by mouth once daily.albuterol HFA (PROAIR HFA) 90 mcg/actuation inhaler Inhale 2 Puffs asinstructed every 6 hours as needed for Wheezing/Shortness of Breath.fluticasone-salmeter ol (ADVAIR DISKUS) 250-50 mcg/dose dsdv Inhale 1 Puffas instructed twice daily. 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 Pain when moving leg inward and outHealth Maintenance ListONE PNEUMOVAX PRIOR TO AGE 65 due on 02/09/1979HEPATITIS C SCREENING due on 2004INFLUENZA(1) due on 03/12/2017DIABETES SCREEN due on 04/18/2017TETANUS due on 12/21/2018LIPID SCREEN due on 1COLORECTAL CANCER SCREENING,SEE MODIFIER due on 3PROSTATE CANCER SCREENING DISCUSSION CompletedData reviewedNoneASSESSMENT/PLAN :1. Chronic right-sided low back pain with right-sided sciatica - ICD9:724.2, 724.3, 338.29, ICD10: M54.41, G89.29Chronic low back pain with sciatica- Start Prednisone- Consult to PTFollow up as neededNaima Grande MDThe documentation for this note was completed by Katie Mendez Ma acting asscribe for Naima Grande MD. April 13, 2017 4:[address] [facility] Office Visiton 03-02-2017 Documentation of current medications (procedure) Done Invalid Interpretation Code [facility] Work Phone: Protein mass conc Done [facility] Work Phone: Tobacco smoking status NHIS Never smoker [facility] Work Phone: Tobacco use [facility] Never smoker Invalid Interpretation Code [facility] Work Phone: CNOVon 01-05-2017 CNOV Office Visit (SPNMED) -------STEPHAN ARAMBULA ([id number]) 1960 MDate Time Provider Department01/05/17 7:40 AM MARY ARMENDARIZ SPNMED During your visit today, we recorded the following information about you: Pulse Blood pressure Weight Height 58/minute 120/77 84.8 kg 1.829 Chris Armendariz, DO 01/05/2017 8:45 AM SignedOutpatient Consult Андрейdarlenewilbert Gomes, [id number] [facility] [place] [id number]'s Date: 01/04/2017DIAGNOSIS:(M54.41, G89.29) Chronic right-sided low back pain with right-sided sciatica(primary encounter diagnosis)ASSESSMENT:Stephan Arambula is a 56 year old male with chronic right sided low back pain withconcern for facet mediated pain. He also reports intermittent right lowerextremity paresthesias in primarily L5 distribution with concern fordegenerative changes of the spine also contributing to lumbar radiculopathyalthough no significant pain reported. No evidence of myelopathy or weaknessalthough loss of reflex noted in right patella. He has not improved to datewith conservative treatments.PLAN:1) Imaging Studies: None at this time2) Therapy/Rehabilitation: PT as discussed previously. May call [phone] schedule3) Pharmacological Management: Continue Ibuprofen as needed. Discussed riskof NSAIDs4) Spine/Surgical Interventions: No role for acute spine or surgicalinterventions at this time but may be a candidate for such treatments in thefuture based on symptom progression and review of imaging studies.5) Alternative Treatments: May consider alternative treatment options in thefuture including acupuncture if patient does not obtain optimal relief withinitial treatment plan.6) Consultations: None7) Follow -up: As needed for persistent pain8) Future treatment considerations: If no improvement with above may considerfurther diagnostic imaging studies including MRI with potential diagnostic andtherapeutic spinal injections to follow based on review of imaging results.Red Flags:1. History of malignancy? No2. Inability to find position of comfort? No3. Pain at night? Yes4. Unexplained fever? No5. Significant spinal trauma? No6. Bowel or bladder dysfunction? No7. Gait or balance disturbance? No8. Progressive weakness? No8. . History of Osteoporosis? No10. History of IV drug abuse? No11. Decreased fine motor control in hands? NoYellow flags include:Depression or anxiety disordersBlue flags include:High work demand or stressImaging Ordered:NonePatient had all questions answered and agreed with the above treatment plan.Patient was encouraged to call or seek urgent care should they experienceworsening pain not controlled on current regimen, neurological declineincluding worsening weakness/numbness/tingling, gait difficulties, and/orchange in bowel/bladder habits.Mary Armendariz, DOClinical Weight Loss Sales Consultantegg buyer [facility] for Spine HealthCC: LBP and RIGHT LEG PAINDanizandra Arambula is a 56 year old White male who presents with complaints asabove. 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 Pt describes constant, sorness quality pain,located LBP, right sided and intermittent numbness/tingling quality sensationradiating RIGHT LEG (distribution: Right Leg: Lateral thigh and Lateral calf).Pain TODAY:5/10; WORST: 8/10; BEST: 0/10. Pain is exacerbated by backextension; reduced by resting/laying down and stretching. 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 He notes spasms intermittently of the lowback. He denies focal weakness but notes intermittent weakness withwalking/running.Patient denies bowel/bladder incontinence, denies fever, + intermittent nightpain, denies unintentional weight loss, denies clumsiness of hands, feet, ordropping things. Denies any additional constitutional or myelopathicsymptomatology.T reatment:NSAIDS: Ibuprofen PRN with some reliefMuscle relaxants: NoneAnalgesics: NoneOral steroids: NoneAdjunctive medications: NoneTopical patches/creams: NonePhysical therapy: NoneChiropractor: No reliefAcupuncture: NoneEpidural blocks: NoneOther: NonePrior Spinal Surgery: NoneROS: Other than listed in HPI or PMHX below the patient denies any complaint ofthe following: joint swelling, myalgias, diagnosis of cancer, significantspinal trauma, cough, fever, ongoing systemic illness, dizziness, fainting,orthostasis, vision or language changes. No shortness of breath, chest pain,nausea, vomiting or diarrhea.ALLERGIES: Percocet [Oxycodone-Acetaminophen]; Environmental [Other]MEDICATIONS:Current Outpatient Prescriptions:citalopram (CELEXA) 40 mg tablet Take 1 tablet by mouth once daily.albuterol HFA (PROAIR HFA) 90 mcg/actuation inhaler Inhale 2 Puffs asinstructed every 6 hours as needed for Wheezing/Shortness of Breath.fluticasone-salmeter ol (ADVAIR DISKUS) 250-50 mcg/dose dsdv Inhale 1 Puff asinstructed twice daily. 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- Unspecified sleep apnea improved w somnoplastyPAST SURGICAL HISTORY:Additionally, PAST SURGICAL HISTORY11/09/12: COLONOSCOP W/ OR W/O [facility] SPEC Comment: Colonoscopy11/09/12: EGD W/O OR W/BRUSH/WASH Comment: [id number]: PALATE/UVULA SURGERY UNLISTED Comment: Somnoplasty - for OSASocial History Marital status: Spouse name: Years of education: Number of children: 2Occupational 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[facility] [employer]*Social History Main Topics Smoking status: Never Smoker Smokeless status: Never Used Alcohol use: No Drug use: No Sexual activity: Yes Partners with: FemaleFAMILY HISTORY:FAMILY HISTORY Allergies Mother Allergies Brother Coronary Artery Disease Father Comment: age 39 Diabetes Paternal Grandfather Ischemic Heart Disease FatherPHYSICAL EXAMVital Signs: BP 120/77 Pulse (!) 58 Ht 182.9 cm (6') Wt 84.8 kg (187 lb) BMI 25.36 kg/c3HAGPTNG Appearance: Patient is Well nourished, well developed, with noapparent distressNEURO/Psych: Patient oriented to person, place, and time, mood pleasant,benign affect.HEART: Regular rate.LUNGS: chest expansion symmetrical.SKIN: Head, neck, trunk, and extremities dry, intact and without lesionsVASCULAR: no edemaPOSTURE: Normal Intact Spinal CurvesVISUAL INSPECTION: Cervical: WNL Thoracic: WNL Lumbar: WNL Muscle Bulk: Normal and symmetrical in the upper ANDamp; lower extremities.PALPATION: Spinous Process: No Pain Paraspinals: + Pain L5-S1 Tender Points: No PSIS(SI): No Pain Left and No Pain RightMUSCLE TONE: normalGAIT: non-antalgic heel-to toe Toe Walking: Function Strength WNL . Heel Walking: Function Strength WNL . Tandem Walk: Intact.LUMBAR:Flexion: Full ROM without painExtension: Full ROM with end-range painDURAL TENSION SIGNS Right: Negative Left: NegativeHIP:Groin tenderness: negativeKNEE: no swelling, erythema, stableSENSATION: Soft Touch - normal, lower limb dermatomes.REFLEXESKnee: Trace on right and 1+ hypoactive on the leftAnkle: 2+ Normal intact and symmetricLong Tract Signs: Clonus is not present bilateral anklesSTRENGTHRight Psoas: 5. Left Psoas: 5Right Quadriceps: 5. Left Quadriceps: 5Right DF: 5. Left DF: 5Right Soleus: 5. Left Soleus: 5DATA REVIEW:Xrays L-spine performed 12/24/16 present in chart and reviewed revealin Views of the lumbosacral spine with AP, lateral and cone-down radiographsdemonstrate multilevel degenerative change with vertebral body osteophytosis.?There is intervertebral disc space narrowing at all lumbar levels with loss ofthe normal upper lumbar lordosis. ?There is hypertrophic facet change at thelower 2 levels. ?Mild to 3 mmretrolisthesis of L2 on L3 and L3 on L4 which is degenerative in etiology.?There are no compression fractures and alignment is otherwise well maintained.?The soft tissues are unremarkableThe above imaging studies were reviewed with the patient.Review of [facility] EMR reveals evaluation with Chana Gomes on 12/24/16revealin. Right-sided low back pain with right-sided sciatica, unspecified chronicity- ICD9: 724.3, ICD10: M54.41Sciatica. Will treat with medrol dose pack and PT. If not better will refer toSpine. Consider MRI.- Warm moist heat for 20 min three times a day- Medrol dose pack- Xrays- see orders- Follow up in 3 months or sooner if symptoms persist or worsen- CONSULT TO PHYSICAL THERAPY- XR LUMBAR AP/LAT/[id number] patient was seen at the request of Dr. Chana Rodriguez) [address] forconsultation regarding problem and diagnosis delineated above. Additionally,the findings ANDamp; recommendations will be communicated back to the referringphysician via [employer] Postal [employer] and/or shared electronic medical record whenpossible.CC: Chana Rodriguez) Chris Flower Ma 01/05/2017 8:00 AM SignedPatient presents with:Low Back Pain: right leg numbnessReferring Provider: CHANA DAY) [[id number]]Allergies As of Date: 01/05/2017 Noted Allergy ReactionPERCOCET (OXYCODONE-ACETAMINOPHEN) 9 - Itchingenvironmental [Other] 12/27/2006Date Reviewed: 01/05/2017Reviewed by: Kailey Flower Ma - Fully AssessedReason for Visit: Low Back Pain [126] Cmt: right leg numbnessPrimary Visit Diagnosis:Chronic right-sided low back pain with right-sided sciatica [M54.41, G89.29]Prescriptions as of 01/05/2017 Sig: CITALOPRAM 40 MG TABLET Take 1 tablet by mouth once d* ALBUTEROL SULFATE HFA 90 MCG/* Inhale 2 Puffs as instructed * FLUTICASONE 250 MCG-SALMETERO* Inhale 1 Puff as instructed t*Problem List As Of Date 01/05/2017 Noted Resolved MALIG NEOPLASM SKIN TRUNK [173.5] INVALID FOR* Adjustment Disorder with Depressed Mood [F43.21]INVALID FOR* Seasonal Allergies [J30.2] INVALID FOR* Asthma [J45.909] INVALID FOR* GERD (gastroesophageal reflux disease) [K21.9] INVALID FOR* Hyperlipidemia [E78.5] INVALID FOR* Depression [F32.9] INVALID FOR* Contusion of left hip [S70.02XA] INVALID FOR* Left shoulder strain [S46.912A] INVALID FOR* Anxiety and depression [F41.9, F32.9] INVALID FOR* Chronic right-sided low back pain with right-si*INVALID FOR*Visit Notes:>> Kailey Root Jan 05, 2017 7:58 AM Status: SignedPatient presents with:Low Back Pain: right leg numbnessDisposition: Return if symptoms worsen or fail to improve.Follow-up and Disposition History RecordedLetter TextDaniel T Rutt Armendariz D.O.0 [place] [id number] Unh: [phone] , [id number] Whom it May Concern:PLAN:1) Imaging Studies: None at this time2) Therapy/Rehabilitation: PT as discussed previously. May [id number] to schedule3) Pharmacological Management: Continue Ibuprofen as needed. Discussed riskof NSAIDs4) Spine/Surgical Interventions: No role for acute spine or surgicalinterventions at this time but may be a candidate for such treatments in thefuture based on symptom progression and review of imaging studies.5) Alternative Treatments: May consider alternative treatment options in thefuture including acupuncture if patient does not obtain optimal relief withinitial treatment plan.6) Consultations: None7) Follow -up: As needed for persistent pain8) Future treatment considerations: If no improvement with above mayconsider further diagnostic imaging studies including MRI with potentialdiagnostic and therapeutic spinal injections to follow based on review ofimaging results.Sincerely yours,Mary Armendariz D.O.(Electronically signed to expedite mailing) Status:Closed by MARY ARMENDARIZ DO on 01/05/[address] [facility] Office Visiton 11-26-2016 Documentation of current medications (procedure) Done Invalid Interpretation Code [facility] Work Phone: Protein mass conc Done [facility] Work Phone: Tobacco smoking status NHIS Never smoker [facility] Work Phone: Tobacco use [facility] Never smoker Invalid Interpretation Code [facility] Work Phone: Office Visiton 10-06-2016 Tobacco smoking status NHIS Never smoker [facility] Work Phone: Vital Signs Date Time Vital Sign Value Performing Clinician Facility 12-06-2024 17:15-0400 Body temperature 97 [degF] Dr. Naima Estevez DO Work Phone: [facility] 12-06-2024 17:15-0400 Diastolic blood pressure 84 mm[Hg] Dr. Naima Estevez DO Work Phone: [facility] 12-06-2024 17:15-0400 Heart rate 74 /min Dr. Naima Estevez DO Work Phone: [facility] 12-06-2024 17:15-0400 Respiratory rate 16 /min Dr. Naima Estevez DO Work Phone: [facility] 12-06-2024 17:15-0400 SaO2% (BldA) [Mass fraction] 94 % Dr. Naima Estevez DO Work Phone: [facility] 12-06-2024 17:15-0400 Systolic blood pressure 112 mm[Hg] Dr. Naima Estevez DO Work Phone: [facility] 12-06-2024 16:30-0400 Inhaled oxygen flow rate 2 L/min Dr. Naima Estevez DO Work Phone: [facility] 12-06-2024 13:11-0400 Body height 180.[address] Naima Estevez DO Work Phone: [facility] 12-06-2024 13:11-0400 Body mass index (BMI) [Ratio] 27.3 kg/m2 Dr. Naima Estevez DO Work Phone: [facility] 12-06-2024 13:11-0400 Body weight 88.[address] Naima Estevez DO Work Phone: [facility] 11-19-2023 14:50-0400 Body temperature 96.9 [degF] Dr. Naima Estevez Work Phone: [facility] 11-19-2023 14:50-0400 Diastolic blood pressure 81 mm[Hg] Dr. Naima Estevez Work Phone: [facility] 11-19-2023 14:50-0400 Heart rate 70 /min Dr. Naima Estevez Work Phone: [facility] 11-19-2023 14:50-0400 Respiratory rate 16 /min Dr. Naima Estevez Work Phone: [facility] 11-19-2023 14:50-0400 SaO2% (BldA) [Mass fraction] 100 % Dr. Naima Estevez Work Phone: [facility] 11-19-2023 14:50-0400 Systolic blood pressure 113 mm[Hg] Dr. Naima Estevez Work Phone: [facility] 11-19-2023 08:50-0400 Body height 180.[address] Naima Estevez Work Phone: [facility] 11-19-2023 08:50-0400 Body mass index (BMI) [Ratio] 26.2 kg/m2 Dr. Naima Estevez Work Phone: [facility] 11-19-2023 08:50-0400 Body weight 85.[address] Naima Estevez Work Phone: [facility] 10-14-2023 08:07-0400 Body temperature 97.9 [degF] [facility] 10-14-2023 08:07-0400 Diastolic blood pressure 78 mm[Hg] [facility] 10-14-2023 08:07-0400 Heart rate 77 /min [facility] 10-14-2023 08:07-0400 Respiratory rate 16 /min [facility] 10-14-2023 08:07-0400 SaO2% (BldA) [Mass fraction] 98 % [facility] 10-14-2023 08:07-0400 Systolic blood pressure 110 mm[Hg] [facility] 10-13-2023 15:30-0400 Body height 180.34 cm [facility] 10-13-2023 15:30-0400 Body weight 86.2 kg [facility] 10-13-2023 12:24-0400 Body mass index (BMI) [Ratio] 26.4 kg/m2 [facility] 10-13-2023 11:13-0400 Body temperature 96.7 [degF] [facility] 10-13-2023 11:13-0400 Diastolic blood pressure 45 mm[Hg] [facility] 10-13-2023 11:13-0400 Heart rate 61 /min [facility] 10-13-2023 11:13-0400 Respiratory rate 16 /min [facility] 10-13-2023 11:13-0400 SaO2% (BldA) [Mass fraction] 94 % [facility] 10-13-2023 11:13-0400 Systolic blood pressure 101 mm[Hg] [facility] 10-13-2023 06:42-0400 Body height 180.34 cm [facility] 10-13-2023 06:42-0400 Body mass index (BMI) [Ratio] 26.4 kg/m2 [facility] 10-13-2023 06:42-0400 Body weight 86.18 kg [facility] 07-14-2016 09:24-0500 BMI (Body Mass Index) 27.39 kg/m2 [facility] Work Phone: 07-14-2016 09:24-0500 Body weight 91.63 kg [facility] Work Phone: 07-14-2016 09:24-0500 Height 182.88 cm [facility] Work Phone: 07-14-2016 09:24-0500 Weight 91.63 kg Marimar Meier [facility] Work Phone: Encounters Encounter Date Encounter Type Care Provider Facility Start: 03-06-2025 ambulatory [facility] Facility: [facility] Start: 02-17-2025 ambulatory [facility] Facility: [facility] Start: 01-17-2025 ambulatory Álvaro Aparicio Facility:[facility] Start: 01-17-2025 Non-patient / Non-visit [facility] Salamanca [facility] Start: 01-17-2025 End: 01-17-[address] Naima Estevez DO Work Phone: -Cardiovascular Services Start: 01-17-2025 End: 01-17-[address] Naima Estevez DO -Cardiovascular Services Work Phone: Start: 01-17-2025 End: 01-17-2025 ambulatory Naima Estevez Facility:[facility] Start: 01-01-2025 End: 01-01-[address] Naima Estevez DO Work Phone: [facility] Work Phone: Start: 01-01-2025 End: 01-01-[address] César Ríos MD -Laboratory Work Phone: Start: 01-01-2025 End: 01-01-2025 ambulatory César Ríos Facility:[facility] Start: 12-15-2024 Non-patient / Non-visit Dr. Rea Of elida MCKNIGHT -[facility] Work Phone: Start: 12-15-[address] Naima garcia DO -Cat [facility] Work Phone: Start: 12-15-2024 ambulatory Álvaro Aparicio Facility:[facility] Start: 12-06-2024 End: 12-06-2024 Admission to same day surgery center Dr. César Ríos MD -Surgical Day Care Start: 12-06-2024 End: 12-06-[address] Naima Estevez DO Work Phone: [facility] Work Phone: Start: 12-05-2024 End: 12-05-2024 ambulatory Naima Herb Facility:[facility] Start: 12-05-2024 End: 12-05-2024 Non-patient / Non-visit Dr. Atif Mooney MD -[facility] Work Phone: Start: 11-30-2024 End: 11-30-[address] Niama Estevez DO Work Phone: [facility] Work Phone: Start: 11-30-2024 End: 11-30-[address] César Ríos MD -Laboratory Specimen Work Phone: Start: 11-30-2024 End: 11-30-2024 ambulatory [facility] Facility:[facility] Start: 07-19-2024 End: 07-19-2024 ambulatory [facility] Facility:[facility] Start: 06-13-2024 Encounter for genera l adult medical examination without abnormal findings [facility] Start: 05-19-2024 End: 05-19-2024 ambulatory [facility] Facility:[facility] Start: 11-19-2023 End: 11-19-2023 Admission to same day surgery center Dr. Naima Estevez Work Phone: [facility]-Surgical Day Care Start: 11-19-2023 End: 11-19-[address] Naima Estevez Work Phone: [facility] Work Phone: Start: 10-13-2023 End: 10-14-2023 Evaluation and management of inpatient [facility]-Medical Surgical 3 Work Phone: Start: 10-13-2023 End: 10-14-2023 observation encounter [facility] Work Phone: Start: 10-13-2023 Admission to [facility] surgery center [facility]-Dentistry Professor Work Phone: Start: 10-12-2023 End: 10-12-2023 Non-patient / Non-visit Dr. Naima Estevez Work Phone: [facility] Work Phone: Start: 10-12-2023 End: 10-12-2023 ambulatory [facility] Work Phone: Start: 10-12-2023 End: 10-12-2023 Patient encounter procedure [facility]-Cat Scan, [facility] Work Phone: Start: 10-06-2023 End: 10-06-2023 ambulatory [facility] Work Phone: Start: 10-06-2023 End: 10-06-2023 [facility] Work [facility] Start: 10-04-2023 End: 10-04-2023 ambulatory [facility] Work Phone: Start: 10-04-2023 End: 10-04-2023 Patient encounter procedure [facility]-Laboratory Work Phone: Start: 09-28-2023 End: 09-28-2023 ambulatory [facility] Work Phone: Start: 09-28-2023 End: 09-28-2023 [facility] Work [facility]: Start: 04-13-2017 End: 04-13-[address] [facility] Start: 01-05-2017 End: 01-05-[address] [facility] Procedures Date Procedure Procedure Detail Performing Clinician Start: 01-01-[address] Naima Estevez DO Work Phone: Start: 12-15-2024 CT angiography of co ronary arteries Dr. Naima Estevez DO Work Phone: Start: 12-06-2024 Cystoscopy and transurethral resection of bladder tumor Dr. Naima Estevez DO Work Phone: Start: 11-19-2023 Cystoscopy and transurethral resection of bladder tumor Dr. Naima Estevez Work Phone: Start: 11-08-[address] Naima Estevez Work Phone: Start: 10-13-2023 Cysto,Transurethra R esec BladderTum MitC (Not Applicable) Start: 10-12-2023 Computed tomography of abdomen and pelvis with contrast Start: 10-06-2023 Urine culture Start: 11-26-2016 End: 11-26-2016 Documentation of current medications Marimar Hardeep Start: 10-06-2016 End: 10-06-2016 Documentation of current medications Joelle Musa Plan of Treatment Date Care Activity Detail Author Start: 12-06-2024 End: 12-06-2024 Patient discharge [facility] Start: 12-06-2024 Ambulation without limitation [facility] Start: 12-06-2024 Medication education [facility] Start: 12-06-2024 Planned voiding [facility] Start: 12-06-2024 Taking patient vital signs [facility] Start: 12-06-2024 [facility] Start: 12-06-2024 Cystourethroscopy w/dest &/rmvl med bladder travis CYSTOSCOPY AND TREATMENT [facility] Start: 11-19-2023 Ambulation without limitation [facility] Start: 11-19-2023 Medication education [facility] Start: 11-19-2023 End: 11-19-2023 Patient discharge [facility] Start: 11-19-2023 Planned voiding [facility] Start: 11-19-2023 Taking patient vital signs [facility] Start: 11-19-2023 [facility] Start: 10-14-2023 Patient discharge [facility] Start: 10-14-2023 Inhalation therapy procedure [facility] Start: 10-13-2023 Anes transurethral resection of bladder tumor ANESTH BLADDER TUMOR SURG [facility] Start: 10-13-2023 Bladder instillation anticarcinogenic agent TREATMENT OF BLADDER LESION [facility] Start: 10-13-2023 Cystourethroscopy w/dest &/rmvl tumor large CYSTOSCOPY AND TREATMENT [facility] Start: 10-13-2023 Following clinical pathway protocol [facility] Start: 10-13-2023 Application of intermittent pneumatic compression device [facility] Start: 10-13-2023 Admission procedure [facility] Start: 10-13-2023 Provision of activity privileges [facility] Start: 10-13-2023 Measuring intake and output [facility] Start: 10-13-2023 Patient education [facility] Start: 10-13-2023 Taking patient vital signs [facility] Start: 10-13-2023 Vital signs measurements [facility] Start: 10-13-2023 End: 10-13-2023 [facility] Start: 10-13-2023 End: 10-13-2023 [facility] Start: 10-13-2023 Ambulation without limitation [facility] Start: 10-13-2023 Medication education [facility] Start: 10-13-2023 Taking patient vital signs [facility] Start: 10-13-2023 Patient referral to dietitian [facility] Start: 03-02-2017 End: 03-02-2017 Appointment Appointment [facility] Work Phone: Start: 03-02-2017 End: 03-02-2017 Appointment Appointment [facility] Work Phone: Start: 11-26-2016 End: 11-26-2016 Appointment Appointment [facility] Work Phone: Start: 09-09-2016 End: 09-09-2016 Physical Therapy General Physical Therapy General Rehab [facility], [address] [place] [address], [id number] [facility] Work Phone: Start: 07-14-2016 End: 07-14-2016 Mri joint upr extrem w/o dye MRI Joint Upper Extremity [facility] Work Phone: Start: 07-14-2016 End: 07-14-2016 X-ray exam of shoulder X-Ray, Shoulder [facility] Work Phone: Cytology report of B elias fluid Cyto stain [facility] Electrocardiographic procedure [facility] Patient Education [facility] Work Phone: Patient referral [facility] Work Phone: Payers Date Payer Category Payer Unknown 2024 Private Health Insurance [id number] 2024 Self-pay [id number] 2006 Unknown [facility] [id number] Private Health Insurance [id number] [id number] Unknown [id number] Unknown [id number] Unknown [id number] Unknown [id number] Unknown [id number] [id number] Unknown [id number] [id number] Unknown [id number] [id number] Unknown [id number] [id number] Unknown [id number] [id number] Unknown [id number] [id number] Unknown [id number] [id number] Unknown [id number] Social History Date Type Detail Facility Start: 08-18-2016 End: 11-09-2023 Tobacco smoking status PAIS Unknown if ever smoked [facility] Start: 1960 Sex Assigned At Male W [facility] Start: 07-03-2024 End: 12-01-2024 Tobacco smoking status NHIS Never smoked tobacco (finding) [facility] Goals Date Patient Goal Desired Activity /State Functional Status Date Assessment Result Facility 10-14-2023 Functional status [facility] Work Phone: Mental Status Date Assessment Result Facility 12-06-2024 Cognitive function Voice/Name [facility] Work Phone: 11-19-2023 Cognitive function Level Of Cons ciousness Awake;Alert;Appropriate [facility] Work Phone: 11-19-2023 Cognitive function Patient Orien tation Person;Place;Time [facility] Work Phone: 10-14-2023 Cognitive function Voice/Name [facility] Work Phone: 10-13-2023 Cognitive function Voice/Name [facility] Work Phone: Clinical Notes 10-12-2023 to 12-06-2024 Note Date & Type Note Facility 12-06-2024 Consult note [facility] 12-06-2024 Discharge summary [facility] 12-06-2024 Discharge summary Note Date/Time December 06, 2024 6:04pm [facility] Medical Records Department [address] [place] [address] Instructions for Home/Discharge Instructions 12/06/24 1538 MR#: [id number] Acct: [id number] Name: STEPHAN ARAMBULA Rep #:[id number] : 1960 64 From: César Ríos MD PCP: Dr. Naima Estevez, DO Status:REG SDC Discharge Instructions Diet Discharge Diet: No restrictions DC O2, CPAP, BIPAP needs Home O2 Discharge instructions: No Dressing / Incision Discharge Activity: Return to Normal Activity and May Not Drive (while taking narcotic pain medications.) Dressing / Incision Call your doctor if you observe: Fever of 101 or Higher Follow Up Care Please Follow Up With: César Ríos MD When: Call [phone] for an appointment Test Results: Test results from this visit will be discussed in further detail at your follow-up appointment, if applicable. Discharge Plan Admission Primary Reason for Your Visit: Resection of bladder tumor Attending Provider: César Ríos Primary Care Provider: Naima Estevez Instructions Print Language: Cook Islander Discharge Orders/Prescriptions Prescriptions: New ibuprofen 600 mg tablet 600 mg PO Q6H PRN (Reason: pain) Qty: 20 0RF phenazopyridine [Pyridium] 100 mg tablet 100 mg PO TID PRN (Reason: pain) Qty: 14 0RF acetaminophen 500 mg capsule 500 mg PO Q4H PRN (Reason: pain) Qty: 20 0RF tamsulosin [Flomax] 0.4 mg capsule 0.4 mg PO DAILY PRN (Reason: difficulty voiding) Qty: 10 0RF Continued fluticasone propion-salmeterol [Advair Diskus] 1 PUFF inhaler 1 puff inhalation BID albuterol sulfate [Ventolin HFA] 1 INHALER inhaler 1 - 2 puff inhalation Q4H PRN PRN (Reason: Asthma) omeprazole 20 mg capsule,delayed release(DR/EC) 20 mg PO DAILY PRN (Reason: acid reflux) ibuprofen 600 mg tablet 600 mg PO Q6H PRN (Reason: pain) Qty: 20 0RF citalopram 10 mg tablet 10 mg PO DAILY Referrals / Follow Up: César Ríos MD [Med Staff - Active Staff] - Naima Estevez DO [Primary Care Provider] - Disposition Disposition (needs filled in before D/C Order can be placed): Home, Self Care 12/06/24 1538<Electronically signed by César Ríos MD>César Ríos MD CC: Dr. Naima Estevez DO ~ Signed [facility] Work Phone: 1(680) 828-316105-28-2025 History and physical note Author César Ríos [facility] Note Date/Time December 06, 2024 3:38p [facility] Medical Records Department [address] [place] [address] History & Physical Exam 12/06/24 1537 MR#: [id number] Acct: [id number] Name: STEPHAN ARAMBULA Rep #:[id number] : 1960 64 From: César Ríos MD PCP: Dr. Naima Estevez, DO Status:[place] [facility] Location: [place] [address] HPI - General General Date of Service: 12/06/24 Chief Complaint: Bladder tumor HPI Narrative STEPHAN ARAMBULA, is a 64 M who presents for resection of a tumor that is growing back on his left lateral wall prior biopsy came back negative for carcinoma he has a history of bladder cancer treated with resection Mitomycin-C and BCG therapy. [facility] Medical History Loss of hearing Wears glasses Bladder disease Tinnitus Cancer Anxiety Depression Arthritis Heartburn Non-smoker Asthma History of stress test Home Medications ?Medication ?Instructions ?Recorded ?Last Taken ?Type albuterol sulfate 90 mcg/actuation 1 - 2 puff inhalati on Q4H PRN PRN 08/18/16 12/06/24 11:00 History aerosol inhaler (Ventolin HFA) Asthma fluticasone 250 mcg-salmeterol 50 1 puff inhalation BI D 08/18/16 12/06/24 06:00 History mcg/dose blistr powdr for inhalation (Advair Diskus) omeprazole 20 mg capsule,delayed 20 mg PO DAILY PRN ac id reflux 10/11/23 12/06/24 11:00 History release ibuprofen 600 mg tablet 600 mg PO Q6H PRN pain #20 t abs 10/13/23 Unknown Rx citalopram 10 mg tablet 10 mg PO DAILY 12/01/2411/10 History acetaminophen 500 mg capsule 500 mg PO Q4H PRN pain #2 0 caps 12/06/24 Unknown Rx ibuprofen 600 mg tablet 600 mg PO Q6H PRN pain #20 t abs 12/06/24 Unknown Rx phenazopyridine 100 mg tablet 100 mg PO TID PRN pain # 14 tabs 12/06/24 Unknown Rx (Pyridium) tamsulosin 0.4 mg capsule (Flomax) 0.4 mg PO DAILY PRN difficulty 12/06/24 Unknown Rx voiding #10 caps Allergy/AdvReac Type Severity Reaction Status Date / Time succinylcholine AdvReac Severe Other Verified 12/06/24 13:07 Surgical History H/O transurethral resection of bladder tumor (TURBT) History of colonoscopy History of tonsillectomy History of adenoidectomy History of shoulder surgery Social History Smoking Status: Never smoker Vital Signs Vital Signs Vital Signs: 12/06/24 13:09 12/06/24 13:11 12/06/24 14:24 Temperature 99.1 F 99.1 F Temperature Source Temporal Pulse Rate 85 85 Respiratory Rate 16 16 Respiratory Pattern Normal Blood Pressure 135/73 H 135/73 H Blood Pressure Mean 93 Blood Pressure Source Monitor Blood Pressure Position Semi-Fowlers Blood Pressure Location Right Arm Pulse Ox 96 96 Oxygen Delivery Method Room Air Room Air Weight Weight: 88.813 kg Body Mass Index (BMI) 27.3 12/06/24 1538 <Electronically signed by César Ríos MD> Cosigner Signature (if applicable): CC: Dr. César Ríos MD; Dr. Naima Estevez DO~ Signed [facility] Work Phone: 1(173) 177-891905-28-2025 Consult note Author Estiven [facility] Note Date/Time December 06, 2024 2:24p [facility] Medical Records Department [address] [place] [address] Pre-Anesthesia Evaluation 12/06/24 1417 MR#: [id number] Acct: [id number] Name: STEPHAN ARAMBULA Rep #:[id number] : 1960 64 From: Estiven Dudley MD PCP: Dr. Naima Estevez DO Status:REG [facility] [place] Race: C Location: [place] [address] ASA Classification* ASA Classification ASA Classification: 2 Assessment & Plan Anesthesia* Anesthesia Assessment Anesthesia Assessment: Discussed sedation and/or anesthesia options, risks, benefits, and alternatives with patient/parents/legal guardian/POA. Questions invited. The patient/parents/legal guardian/POA seems to understand and agrees to proceedwith anesthesia plan. Reviewed the physical assessment, medical history, allergy history and patient home medications list prior to surgery/procedure/anesthetic and documented any changes. Performed airway and anesthesia risk assessments. Anesthesia Type Anesthesia Type: General (Avoid succinylcholine.) History Source History Obtained from:: Patient and Chart Anesthesia Focused Assessment* Temperature: 99.1 F Pulse Rate: 85 Blood Pressure: 135/73 Respiratory Rate: 16 Pulse Ox: 96 Oxygen Delivery Method: Room Air Airway Assessment Mouth opens: >3 cm Mallampati Score: I Teeth Condition: Intact Neck Range of motion (ROM): Full ROM Focused Labs Anesthesia Preop lab: CBC WBC 5.9 K/mm3 (4.4-11.0) 05/19/24 10:05/19/24 RBC 4.77 M/mm3 (4.6-6.2) 05/19/24 10:05/19/24 Hgb 13.6 g/dL (13.0-16.5) 05/19/24 10:05/19/24 Hct 42.1 % (40-54) 05/19/24 10:05/19/24 Plt Count 226 K/mm3 (150-450) 05/19/24 10:05/19/24 CHEMISTRY Potassium 4.2 mmol/L (3.5-5.1) 05/19/24 10:09 05/19/24 Sodium 137 mmol/L (136-145) 05/19/24 10:09 05/19/24 BUN 20 mg/dL (7-18) H 05/19/24 10:09 05/19/24 Creatinine 1.07 mg/dL (0.70-1.30) 05/19/24 10:09 05/19/24 Glucose 100 mg/dL (74-106) 05/19/24 10:09 05/19/24 COAG Pre-Assessment Diagnosis/Proposed Procedure Planned Operative Procedure(s): TURBT WITH MITOMYCIN C Anesthesia History Anesthesia History - gig tender: Anesthesia History - gig tender Hx Hospitalization No 12/01/24 11:29 Any Problems With Anesthesia No: NO PROBLEMS WITH 12/01/24 11:29 ANESTHESIA 07/2024. Cholinesterase deficiency No 12/01/24 11:29 You/Your Family Experience No 12/01/24 11:29 fever (hyperthermia) with Relationship Recent Exposure to Contagious No 12/06/24 13:09 Disease Does patient have nerve No 12/01/24 11:29 stimulator Patient instructed to have device shut off --Does patient have Pacemaker No 12/06/24 13:11 or ICD? When Was Last Pacemaker Check QUESTION #4 FULL TEXT: You/Your Family Experience fever (hyperthermia) with Anesthesia Last Oral Intake Last Oral intake: Last Oral Intake NPO since 19:00 12/06/24 13:11 Meds taken in AM with sips of Yes 12/06/24 13:11 water? Meds patient instructed to take am of surgery Any additional information?: Yes Meds taken in AM with sips of water?: Yes Meds patient instructed to take am of surgery: Omeprazole PONV PONV - gig tender: PONV - gig tender Female No 12/01/24 11:29 HX of Motion Sickness No 12/01/24 11:29 HX of N/V After Surgery No 12/01/24 11:29 Non-Smoker Yes 12/01/24 11:29 Duration of Surgery greater Yes 12/01/24 11:29 than 60 minutes Number of Risk Factors 2 12/01/24 11:29 PONV Score Moderate Risk 12/01/24 11:29 Height & Weight Height & Weight: Anesthesia: Height & Weight Height 5 ft 11 in 12/06/24 13:11 Weight: 88.813 kg 12/06/24 13:11 Body Mass Index (BMI) 27.3 12/06/24 13:11 Respiratory Assessment Respiratory Assessment - gig tender: Respiratory Tract Infection Hx - gig tender Hx Respiratory Tract Infection No 12/01/24 11:29 STOP Sleep Apnea STOP Sleep Apnea - gig tender: STOP Sleep Apnea - gig tender Hx Hypertension No 12/01/24 11:29 Hx Sleep Apnea No 12/01/24 11:29 CPAP BIPAP Do you snore loudly (louder No 12/01/24 11:29 than talking or can be heard Do you often feel tired/ No 12/01/24 11:29 fatigued/ sleepy during daytime? Has anyone observed you stop No 12/01/24 11:29 breathing during sleep? STOP Results Negative 12/01/24 11:29 QUESTION #5 FULL TEXT : Do you snore loudly (louder than talking or can be heard through closed doors)? Tobacco Use History Tobacco Use History - gig tender: Tobacco Use History - gig tender Tobacco Use Smoking Status Never smoker 12/01/24 11:29 Hx Tobacco Use No 12/01/24 11:29 Years Smoking Packs Smoked per Day Smoking Cessation Date was within the last 15 years Hx Smoking Cessation Date Hx Smoking Cessation Counseling Hematologic Medial History Hematologic Hx - gig tender: Hematologic Medical Hx - mental health associate Hx of Blood Transfusion No 12/01/24 11:29 Hx of Transfusion in last 3 No 12/01/24 11:29 Months Date of Last Transfusion (if within last 3 months) Ever experience any problems No 12/01/24 11:29 with transfusion(s)? Specify any problems Hx of Preganancy in last 3 N/A 12/01/24 11:29 Months Nurse Filling Out Transfusion DSCHRIBER 12/01/24 11:29 & Questions: Date: 12/01/24 12/01/24 11:29 Time: 11:32 12/01/24 11:29 Patient unable to answer at this time (ie. confused, unrespo /Reproduction History /Reproductive History - gig tender: /Reproductive Hx- gig tender Hx Now No 12/01/24 11:29 Gestational Age (in weeks): EDC: Hx Hx Para Hx Section SAB No 12/01/24 11:29 Active Medications Active Medications: Current Medications Generic Name Dose Route Start Last Admin Trade Name Freq PRN Reason Stop Dose Admin Lactated Ringer's 1,000 mls @ 15 mls/hr 12/06/24 13:00 12/06/24 13:16 IV 15 mls/hr .Q48H BERNARDO Administration Cefazolin Sodium 2 gm/ Sodium 110 mls @ 150 mls/hr 12/06/24 14:00 Chloride IV 12/06/24 14:43 INTRAOP ONE PFSH Medical History Loss of hearing Wears glasses Bladder disease Tinnitus Cancer Anxiety Depression Arthritis Heartburn Non-smoker Asthma History of stress test Home Medications ?Medication ?Instructions ?Recorded ?Last Taken ?Type albuterol sulfate 90 mcg/actuation 1 - 2 puff inhalati on Q4H PRN PRN 08/18/16 12/06/24 11:00 History aerosol inhaler (Ventolin HFA) Asthma fluticasone 250 mcg-salmeterol 50 1 puff inhalation BI D 08/18/16 12/06/24 06:00 History mcg/dose blistr powdr for inhalation (Advair Diskus) omeprazole 20 mg capsule,delayed 20 mg PO DAILY PRN ac id reflux 10/11/23 12/06/24 11:00 History release ibuprofen 600 mg tablet 600 mg PO Q6H PRN pain #20 t abs 10/13/23 Unknown Rx citalopram 10 mg tablet 10 mg PO DAILY 12/01/2411/10 History Allergy/AdvReac Type Severity Reaction Status Date / Time succinylcholine AdvReac Severe Other Verified 12/06/24 13:07 Surgical History H/O transurethral resection of bladder tumor (TURBT) History of colonoscopy History of tonsillectomy History of adenoidectomy History of shoulder surgery Social History Smoking Status: Never smoker Review of Systems (Anesthesia) ROS Narrative System reviewed and no additional complaints, except as documented. Physical Exam Resp clear to auscultation bilaterally 12/06/24 1424 <Electronically signed by Estiven bucahnan MD> Date _ Estiven Dudley MD Cosigner Signature: Date CC: ~ Signed [facility] Work Phone: 1(624) 861-636005-28-2025 Procedure note [facility] Medical Records Department [address] [place] [address] Operative Report 12/06/24 1617 MR#: [id number] Acct: [id number] Name: STEPHAN ARAMBULA Rep #:[id number] : 1960 64 From: César Ríos MD PCP: Dr. Naima Estevez, DO Status:[facility] Location: [place] [address] Operative Report (Standard) Operative Information Date of Procedure: 12/06/24 Pre-Operative Diagnosis: Bladder tumor history of bladder cancer multifocal Post-Operative Diagnosis: The same resection of tumor in the patient's right lateral wall resectionsite was 2 cm x 4 cm in size Surgery/Procedure Performed: Transurethral section of bladder tumor prison librarian: No Type of Anesthesia: General RN Documented Start/Stop Times: Operation Date: 12/06/24 14:45 Case Time Into Pre-Op 12/06/24 12:55 Out of Pre-Op 12/06/24 15:31 Anesthesia Start 12/06/24 15:43 Into Room 12/06/24 15:43 Procedure Start 12/06/24 16:00 Procedure End 12/06/24 16:16 Procedure Start Time: 16:00 Procedure Stop Time: 04:17 Select all DRAINS/GRAFTS/IMPLANTS that apply: Drains Drain details: lewis Estimated Blood Loss: Minimal Specimen collected: Yes Description of specimen(s) removed: Bladder tumor resected Description of surgery: This is a 64-year-old gentleman who presented with a very large mass occupying most of the bladder he underwent a fairly extensive resection of his bladder tumor completed BCG therapy after the BCG therapy located a complete response and then on follow-up cystoscopy there was an area of some lesionin the lateralwall of the bladder cystoscopy bladder bladder biopsy this was done ischemic andnegative so we decided to continue with surveillance follow-up cystoscopy demonstrated more like a mass area in the area of the scar healing on the lateral wall the bladder the right lateral wall up towards the top there was an area that looked more papillary and suspicious for carcinoma so organ to do a resection today where the resectoscope. Patient was taken back to the operative room at this with induction of anesthesia he was underwent neurolytic paralyzation and was placed in dorsolithotomy position and went in the bladder with a 24 Tu[place] noncontinuous flow Olympus bipolar resectoscope upon inspecting the bladder the right ureteral right and left ureteral orifices were not involved and inspected both these areas he had scar tissue where the the bladder contracted down on the right lateral wall and then toward the top of the scar tissue there was a bullous papillary area looking no suspicious for cancer. I then put in the resec toscopeloop I started resecting on top of their resected through the area down to the muscle fibersand then resected the rest of the scar, and the way down so the area was about 2 cm wide and 4 cm long along the lateral wall of the bladder after resecting this area then I cauterized extensively tocontrol hemostasis and cauterized the lobe of the bladder neck from bleeding from the scope all thet issue was sent off as a specimen we then put a catheter in the bladder and instilled Mitomycin-C inthe bladder for postresection instillation. Anestheticis reversed he is taken back to the PACU in good condition the drain the Lewis catheter in a hour and then remove the catheter for voiding trial patient go home after urinates. Surgical Findings: Tumors looking area in the lateral wall the bladder resected Complications Complications: No Admit VTE Documentation VTE Present on Admission: No VTE Mechan Device Prophylaxis: SCD's VTE Pharm Prophylaxis ordered?: No 12/06/24 1620 Cosigner Signature (if applicable): CC: Dr. César Ríos MD; Dr. Naima Estevez, DO~ Signed [facility]05-28-2025 History and physical note [facility] Medical Records Department [address] [place] [address] History & Physical Exam 12/06/24 1537 MR#: [id number] Acct: [id number] Name: STEPHAN ARAMBULA Rep #:[id number] : 1960 64 From: César Ríos MD PCP: Dr. Naima Estevez DO Status:[facility] Location: [place] [address] HPI - General General Date of Service: 12/06/24 Chief Complaint: Bladder tumor HPI Narrative STEPHAN ARAMBULA, is a 64 M who presents for resection of a tumor that is growing back on his left lateral wall prior biopsy came back negative for carcinoma he has a history of bladder cancer treated with resection Mitomycin-C and BCG therapy. [facility] Medical History Loss of hearing Wears glasses Bladder disease Tinnitus Cancer Anxiety Depression Arthritis Heartburn Non-smoker Asthma History of stress test Home Medications ?Medication ?Instructions ?Recorded ?Last Taken ?Type albuterol sulfate 90 mcg/actuation 1 - 2 puff inhalati on Q4H PRN PRN 08/18/16 12/06/24 11:00 History aerosol inhaler (Ventolin HFA) Asthma fluticasone 250 mcg-salmeterol 50 1 puff inhalation BI D 08/18/16 12/06/24 06:00 History mcg/dose blistr powdr for inhalation (Advair Diskus) omeprazole 20 mg capsule,delayed 20 mg PO DAILY PRN ac id reflux 10/11/23 12/06/24 11:00 History release ibuprofen 600 mg tablet 600 mg PO Q6H PRN pain #20 t abs 10/13/23 Unknown Rx citalopram 10 mg tablet 10 mg PO DAILY 12/01/24 05/02/02 History acetaminophen 500 mg capsule 500 mg PO Q4H PRN pain #2 0 caps 12/06/24 Unknown Rx ibuprofen 600 mg tablet 600 mg PO Q6H PRN pain #20 t abs 12/06/24 Unknown Rx phenazopyridine 100 mg tablet 100 mg PO TID PRN pain # 14 tabs 12/06/24 Unknown Rx (Pyridium) tamsulosin 0.4 mg capsule (Flomax) 0.4 mg PO DAILY PRN difficulty 12/06/24 Unknown Rx voiding #10 caps Allergy/AdvReac Type Severity Reaction Status Date / Time succinylcholine AdvReac Severe Other Verified 12/06/24 13:07 Surgical History H/O transurethral resection of bladder tumor (TURBT) History of colonoscopy History of tonsillectomy History of adenoidectomy History of shoulder surgery Social History Smoking Status: Never smoker Vital Signs Vital Signs Vital Signs: 12/06/24 13:09 12/06/24 13:11 12/06/24 14:24 Temperature 99.1 F 99.1 F Temperature Source Temporal Pulse Rate 85 85 Respiratory Rate 16 16 Respiratory Pattern Normal Blood Pressure 135/73 H 135/73 H Blood Pressure Mean 93 Blood Pressure Source Monitor Blood Pressure Position Semi-Fowlers Blood Pressure Location Right Arm Pulse Ox 96 96 Oxygen Delivery Method Room Air Room Air Weight Weight: 88.813 kg Body Mass Index (BMI) 27.3 12/06/24 1538 Cosigner Signature (if applicable): CC: Dr. César Ríos MD; Dr. Naima Estevez DO~ Signed [facility]05-28-2025 [facility] Medical Records Department [address] [place] [address] History Physical Exam 12/06/24 1537 MR#: [id number] Acct: [id number] Name: STEPHAN ARAMBULA Rep #: [id number] : 1960 64 From: César Ríos MD PCP: Dr. Naima Estevez, DO Status[place] [facility] [place]: [place] [address] HPI - General General Date of Service: 12/06/24 Chief Complaint: Bladder tumor HPI Narrative STEPHAN ARAMBULA, is a 64 M who presents for resection of a tumor that is growing back on his left lateral wall prior biopsy came back negative for carcinoma he has a history of bladder cancer treated with resection Mitomycin-C and BCG therapy. [facility] Medical History Loss of hearing Wears glasses Bladder disease Tinnitus Cancer Anxiety Depression Arthritis Heartburn Non-smoker Asthma History of stress test Home Medications ???Medication ???Instructions ???Recorded ???Last Taken ???Type albuterol sulfate 90 mcg/actuation 1 - 2 puff inhalation Q4H PRN VT N 08/18/16 12/06/24 11:00 History aerosol inhaler (Ventolin HFA) Asthma fluticasone 250 mcg-salmeterol 50 1 puff inhalation BID 08/18/16 06:00 History mcg/dose blistr powdr for inhalation (Advair Diskus) omeprazole 20 mg capsule,delayed 20 mg PO DAILY PRN acid reflux 08/0412/06/24 11:00 History release ibuprofen 600 mg tablet 600 mg PO Q6H PRN pain #20 tabs Unknown Rx citalopram 10 mg tablet 10 mg PO DAILY 12/01/24 12/05/24 H istory acetaminophen 500 mg capsule 500 mg PO Q4H PRN pain #20 caps Unknown Rx ibuprofen 600 mg tablet 600 mg PO Q6H PRN pain #20 tabs Unknown Rx phenazopyridine 100 mg tablet 100 mg PO TID PRN pain #14 tabs Unknown Rx (Pyridium) tamsulosin 0.4 mg capsule (Flomax) 0.4 mg PO DAILY PRN difficulty 0 12/06/24 Unknown Rx voiding #10 caps Allergy/AdvReac Type Severity Reaction Status Date / Time succinylcholine AdvReac Severe Other Verified 12/06/24 13:07 Surgical History H/O transurethral resection of bladder tumor (TURBT) History of colonoscopy History of tonsillectomy History of adenoidectomy History of shoulder surgery Social History Smoking Status: Never smoker Vital Signs Vital Signs Vital Signs: 12/06/24 13:09 12/06/24 13:11 12/06/24 14:24 Temperature 99.1 F 99.1 F Temperature Source Temporal Pulse Rate 85 85 Respiratory Rate 16 16 Respiratory Pattern Normal Blood Pressure 135/73 H 135/73 H Blood Pressure Mean 93 Blood Pressure Source Monitor Blood Pressure Position Semi-Fowlers Blood Pressure Location Right Arm Pulse Ox 96 96 Oxygen Delivery Method Room Air Room Air Weight Weight: 88.813 kg Body Mass Index (BMI) 27.3 12/06/24 1538 Cosigner Signature (if applicable): CC: Dr. César Ríos MD; Dr. Naima Estevez DO [facility]05-28-2025 Consult note [facility] Medical Records Department [address] [place] [address] Pre-Anesthesia Evaluation 12/06/24 1417 MR#: [id number] Acct: [id number] Name: STEPHAN ARAMBULA Rep #:[id number] : 1960 64 From: Estiven Dudley MD PCP: Dr. Naima Estevez DO Status:REG SDC Y Race: C Location: [place] [address] ASA Classification* ASA Classification ASA Classification: 2 Assessment & Plan Anesthesia* Anesthesia Assessment Anesthesia Assessment: Discussed sedation and/or anesthesia options, risks, benefits, and alternatives with patient/parents/legal guardian/POA. Questions invited. The patient/parents/legal guardian/POA seems to understand and agrees to proceedwith anesthesia plan. Reviewed the physical assessment, medical history, allergy history and patient home medications list prior to surgery/procedure/anesthetic and documented any changes. Performed airway and anesthesia risk assessments. Anesthesia Type Anesthesia Type: General (Avoid succinylcholine.) History Source History Obtained from:: Patient and Chart Anesthesia Focused Assessment* Temperature: 99.1 F Pulse Rate: 85 Blood Pressure: 135/73 Respiratory Rate: 16 Pulse Ox: 96 Oxygen Delivery Method: Room Air Airway Assessment Mouth opens: >3 cm Mallampati Score: I Teeth Condition: Intact Neck Range of motion (ROM): Full ROM Focused Labs Anesthesia Preop lab: CBC WBC 5.9 K/mm3 (4.4-11.0) 05/19/24 10:05/19/24 RBC 4.77 M/mm3 (4.6-6.2) 05/19/24 10:09 05/19/24 Hgb 13.6 g/dL (13.0-16.5) 05/19/24 10:09 05/19/24 Hct 42.1 % (40-54) 05/19/24 10:09 05/19/24 Plt Count 226 K/mm3 (150-450) 05/19/24 10:09 05/19/24 CHEMISTRY Potassium 4.2 mmol/L (3.5-5.1) 05/19/24 10:09 05/19/24 Sodium 137 mmol/L (136-145) 05/19/24 10:09 05/19/24 BUN 20 mg/dL (7-18) H 05/19/24 10:09 05/19/24 Creatinine 1.07 mg/dL (0.70-1.30) 05/19/24 10:09 05/19/24 Glucose 100 mg/dL (74-106) 05/19/24 10:09 05/19/24 COAG Pre-Assessment Diagnosis/Proposed Procedure Planned Operative Procedure(s): TURBT WITH MITOMYCIN C Anesthesia History Anesthesia History - gig tender: Anesthesia History - gig tender Hx Hospitalization No 12/01/24 11:29 Any Problems With Anesthesia No: NO PROBLEMS WITH 12/01/24 11:29 ANESTHESIA 07/2024. Cholinesterase deficiency No 12/01/24 11:29 You/Your Family Experience No 12/01/24 11:29 fever (hyperthermia) with Relationship Recent Exposure to Contagious No 12/06/24 13:09 Disease Does patient have nerve No 12/01/24 11:29 stimulator Patient instructed to have device shut off --Does patient have Pacemaker No 12/06/24 13:11 or ICD? When Was Last Pacemaker Check QUESTION #4 FULL TEXT: You/Your Family Experience fever (hyperthermia) with Anesthesia Last Oral Intake Last Oral intake: Last Oral Intake NPO since 19:00 12/06/24 13:11 Meds taken in AM with sips of Yes 12/06/24 13:11 water? Meds patient instructed to take am of surgery Any additional information?: Yes Meds taken in AM with sips of water?: Yes Meds patient instructed to take am of surgery: Omeprazole PONV PONV - gig tender: PONV - gig tender Female No 12/01/24 11:29 HX of Motion Sickness No 12/01/24 11:29 HX of N/V After Surgery No 12/01/24 11:29 Non-Smoker Yes 12/01/24 11:29 Duration of Surgery greater Yes 12/01/24 11:29 than 60 minutes Number of Risk Factors 2 12/01/24 11:29 PONV Score Moderate Risk 12/01/24 11:29 Height & Weight Height & Weight: Anesthesia: Height & Weight Height 5 ft 11 in 12/06/24 13:11 Weight: 88.813 kg 12/06/24 13:11 Body Mass Index (BMI) 27.3 12/06/24 13:11 Respiratory Assessment Respiratory Assessment - gig tender: Respiratory Tract Infection Hx - gig tender Hx Respiratory Tract Infection No 12/01/24 11:29 STOP Sleep Apnea STOP Sleep Apnea - gig tender: STOP Sleep Apnea - gig tender Hx Hypertension No 12/01/24 11:29 Hx Sleep Apnea No 12/01/24 11:29 CPAP BIPAP Do you snore loudly (louder No 12/01/24 11:29 than talking or can be heard Do you often feel tired/ No 12/01/24 11:29 fatigued/ sleepy during daytime? Has anyone observed you stop No 12/01/24 11:29 breathing during sleep? STOP Results Negative 12/01/24 11:29 QUESTION #5 FULL TEXT : Do you snore loudly (louder than talking or can be heard through closeddoors)? Tobacco Use History Tobacco Use History - gig tender: Tobacco Use History - gig tender Tobacco Use Smoking Status Never smoker 12/01/24 11:29 Hx Tobacco Use No 12/01/24 11:29 Years Smoking Packs Smoked per Day Smoking Cessation Date was within the last 15 years Hx Smoking Cessation Date Hx Smoking Cessation Counseling Hematologic Medial History Hematologic Hx - gig tender: Hematologic Medical Hx - mental health associate Hx of Blood Transfusion No 12/01/24 11:29 Hx of Transfusion in last 3 No 12/01/24 11:29 Months Date of Last Transfusion (if within last 3 months) Ever experience any problems No 12/01/24 11:29 with transfusion(s)? Specify any problems Hx of Preganancy in last 3 N/A 12/01/24 11:29 Months Nurse Filling Out Transfusion DSCHRIBER 12/01/24 11:29 & Questions: Date: 12/01/24 12/01/24 11:29 Time: 11:32 12/01/24 11:29 Patient unable to answer at this time (ie. confused, unrespo /Reproduction History /Reproductive History - gig tender: /Reproductive Hx- gig tender Hx Now No 12/01/24 11:29 Gestational Age (in weeks): EDC: Hx Hx Para Hx Section SAB No 12/01/24 11:29 Active Medications Active Medications: Current Medications Generic Name Dose Route Start Last Admin Trade Name Freq PRN Reason Stop Dose Admin Lactated Ringer's 1,000 mls @ 15 mls/hr 12/06/24 13:00 12/06/24 13:16 IV 15 mls/hr .Q48H BERNARDO Administration Cefazolin Sodium 2 gm/ Sodium 110 mls @ 150 mls/hr 12/06/24 14:00 Chloride IV 12/06/24 14:43 INTRAOP ONE PFSH Medical History Loss of hearing Wears glasses Bladder disease Tinnitus Cancer Anxiety Depression Arthritis Heartburn Non-smoker Asthma History of stress test Home Medications ?Medication ?Instructions ?Recorded ?Last Taken ?Type albuterol sulfate 90 mcg/actuation 1 - 2 puff inhalati on Q4H PRN PRN 08/18/16 12/06/24 11:00 History aerosol inhaler (Ventolin HFA) Asthma fluticasone 250 mcg-salmeterol 50 1 puff inhalation BI D 08/18/16 12/06/24 06:00 History mcg/dose blistr powdr for inhalation (Advair Diskus) omeprazole 20 mg capsule,delayed 20 mg PO DAILY PRN ac id reflux 10/11/23 12/06/24 11:00 History release ibuprofen 600 mg tablet 600 mg PO Q6H PRN pain #20 t abs 10/13/23 Unknown Rx citalopram 10 mg tablet 10 mg PO DAILY 12/01/2411/10 History Allergy/AdvReac Type Severity Reaction Status Date / Time succinylcholine AdvReac Severe Other Verified 12/06/24 13:07 Surgical History H/O transurethral resection of bladder tumor (TURBT) History of colonoscopy History of tonsillectomy History of adenoidectomy History of shoulder surgery Social History Smoking Status: Never smoker Review of Systems (Anesthesia) ROS Narrative System reviewed and no additional complaints, except as documented. Physical Exam Resp clear to auscultation bilaterally 12/06/24 1424 la > Date _ Estiven Dudley MD [facility] Signature: Date CC: ~ Signed [facility]01-08-2025 [facility] Medical Records Department [address] [place] [address] History Physical Exam 07/19/24 08 MR#: [id number] Acct: [id number] Name: STEPHAN ARAMBULA Rodrigue Rep #: [id number] : 1960 64 From: César Ríos MD PCP: Dr. Naima Estevez, DO [place] [facility] [place]: [place] [address]1 HPI - General General Date of Service: 07/19/24 Chief Complaint: bladder cancer HPI Narrative STEPHAN ARAMBULA, is a 64 M who presents for cysto biopsy of lesion and fulguration, h/o bladder cancer. s/p resection of v large mass and BCG therapy PFSH Medical History Loss of hearing Wears glasses Bladder disease Tinnitus Cancer Anxiety Depression Arthritis Heartburn Non-smoker Asthma History of stress test Home Medications ???Medication ???Instructions ???Recorded ???Last Taken ???Type albuterol sulfate 90 mcg/actuation 1 - 2 puff inhalation Q4H PRN PRN 08/18/16 Unknown History aerosol inhaler (Ventolin HFA) Asthma fluticasone 250 mcg-salmeterol 50 1 puff inhalation BID 08/18/16 07/19/24 History mcg/dose blistr powdr for inhalation (Advair Diskus) omeprazole 20 mg capsule,delayed 20 mg PO DAILY PRN acid reflux 10/11/23 07/19/24 History release ibuprofen 600 mg tablet 600 mg PO Q6H PRN pain #20 tabs 10/13/23 Unknown Rx Allergy/AdvReac Type Severity Reaction Status Date / Time No Known Allergies Allergy Verified 07/19/24 07:09 Surgical History H/O transurethral resection of bladder tumor (TURBT) History of colonoscopy History of tonsillectomy History of adenoidectomy History of shoulder surgery Social History Smoking Status: Never smoker Vital Signs Vital Signs Vital Signs: 07/19/24 07:16 07/19/24 07:16 Temperature 98.8 F Temperature Source Temporal Pulse Rate 68 Respiratory Rate 16 Respiratory Pattern Normal Blood Pressure 141/68 H Blood Pressure Mean 92 Blood Pressure Source Monitor Blood Pressure Position Semi-Fowlers Blood Pressure Location Right Arm Pulse Ox 98 Oxygen Delivery Method Room Air Weight Weight: 90 kg Body Mass Index (BMI) 27.6 07/19/24 0900 Cosigner Signature (if applicable): CC: Dr. César Ríos MD; Dr. Naima Estevez DO [facility]05-10-2024 Discharge summary Author César Ríos [facility] November 19, 2023 10:05am Note Date/Time November 19, 2023 10:05 am [facility] Medical Records Department [address] [place] [address] Instructions for Home/Discharge Instructions 11/19/23 1004 MR#: [id number] Acct: [id number] Name: STEPHAN ARAMBULA Rep #:[id number] : 1960 63 From: César Ríos MD PCP: Dr. Naima Estevez DO [place] [facility] [place] Discharge Instructions Diet Discharge Diet: No restrictions Activity Discharge Activity: Return to Normal Activity and May Not Drive (while taking narcotic pain medications.) Dressing / Incision Call your doctor if you observe: Fever of 101 or Higher Follow Up Care Please Follow Up With: César Ríos MD When: Call [phone] for an appointment Test Results: Test results from this visit will be discussed in further detail at your follow- up appointment, if applicable. Discharge Plan Admission Primary Reason for Your Visit: turbt Attending Provider: César Ríos Primary Care Provider: Naima Estevez Discharge Orders/Prescriptions Prescriptions: New tamsulosin [Flomax] 0.4 mg capsule 0.4 mg PO DAILY Qty: 10 0RF phenazopyridine [Pyridium] 200 mg tablet 200 mg PO TID PRN (Reason: burning) Qty: 15 0RF ciprofloxacin HCl [Cipro] 500 mg tablet 500 mg PO BID Qty: 10 0RF Continued fluticasone propion-salmeterol [Advair Diskus] 1 PUFF inhaler 1 puff inhalation BID albuterol sulfate [Ventolin HFA] 1 INHALER inhaler 1 - 2 puff inhalation Q4H PRN PRN (Reason: Asthma) bupropion HCl 150 mg tablet extended release 24 hr 150 mg PO DAILY omeprazole 20 mg capsule,delayed release(DR/EC) 20 mg PO DAILY PRN (Reason: acid reflux) ibuprofen 600 mg tablet 600 mg PO Q6H PRN (Reason: pain) Qty: 20 0RF Referrals / Follow Up: César Ríos MD [Med Staff - Active Staff] - Naima Estevez DO [Primary Care Provider] - Disposition Disposition (needs filled in before D/C Order can be placed): Home, Self Care 11/19/23 1005<Electronically signed by César Ríos MD>César Ríos MD CC: Dr. Naima Estevez, ~ Signed [facility] Work Phone: 1(235) 292-148405-10-2024 History and physical note Author César Ríos [facility] November 19, 2023 10:04am Note Date/Time November 19, 2023 10:05 am [facility] Medical Records Department [address] [place] [address] History & Physical Exam 11/19/23 1004 MR#: [id number] Acct: [id number] Name: STEPHAN ARAMBULA Rep #:[id number] : 1960 63 From: César Ríos MD PCP: Dr. Naima Estevez DO Status:[facility] Location: [place] [address] HPI - General General Date of Service: 11/19/23 Chief Complaint: Bladder cancer HPI Narrative STEPHAN ARAMBULA, is a 63 M who presents for second stage transurethral section of the bladder cancer had a large tumor resected before his extensive mount of resection organ to do a second look TUR BT [facility] Medical History Alcohol use Anxiety Arthritis Asthma Bladder disease Cancer Depression Heartburn History of stress test Non-smoker Tinnitus Home Medications albuterol sulfate 90 mcg/actuation aerosol inhaler (Ventolin HFA) 1 - 2 puff inhalation Q4H PRN PRN Asthma 08/18/16 [History Last Taken Unknown] fluticasone 250 mcg-salmeterol 50 mcg/dose blistr powdr for inhalation (Advair Diskus) 1 puff inhalation BID 08/18/16 [History Last Taken 08/25/16 05:30] bupropion HCl 150 mg 24 hr tablet, extended release 150 mg PO DAILY mood 10/11/23 [History Last Taken Unknown] omeprazole 20 mg capsule,delayed release 20 mg PO DAILY PRN acid reflux 10/11/23[History Last Taken 11/19/23] ibuprofen 600 mg tablet 600 mg PO Q6H PRN pain #20 tabs 10/13/23 [Rx Last Taken Unknown] ciprofloxacin HCl 500 mg tablet (Cipro) 500 mg PO BID #10 tabs 11/19/23 [Rx Last Taken Unknown] phenazopyridine 200 mg tablet (Pyridium) 200 mg PO TID PRN burning 15 doses #15 tabs 11/19/23 [Rx Last Taken Unknown] tamsulosin 0.4 mg capsule (Flomax) 0.4 mg PO DAILY #10 caps 11/19/23 [Rx Last Taken Unknown] Allergy/AdvReac Type Severity Reaction Status Date / Time No Known Allergies Allergy Verified 11/09/23 14:58 Surgical History (Updated 11/09/23 @ 15:03 by Christine Mckinley) H/O transurethral resection of bladder tumor (TURBT) History of adenoidectomy History of colonoscopy History of shoulder surgery History of tonsillectomy Social History Smoking Status: Never smoker Vital Signs Vital Signs Vital Signs: 11/19/23 08:50 11/19/23 08:50 Temperature 98.6 F Temperature Source Temporal Pulse Rate 78 Respiratory Rate 16 Respiratory Pattern Normal Blood Pressure 119/74 Blood Pressure Mean 89 Blood Pressure Source Monitor Blood Pressure Position Semi-Fowlers Blood Pressure Location Left Arm Pulse Ox 100 Oxygen Delivery Method Room Air Weight Weight: 85.4 kg Body Mass Index (BMI) 26.2 11/19/23 1004 <Electronically signed by César Ríos MD> Cosigner Signature (if applicable): CC: Dr. César Ríos MD; Dr. Naima Estevez, DO~ Signed [facility] Work Phone: 1(835) 702-448505-10-2024 Procedure [facility] 10-14-2023 Progress note Author César Ríos [facility] October 14, 2023 7:37am Note Date/Time October 14, 2023 7:37 am [facility] Medical Records Department [address] [place] [address] Progress Note - Urology 10/14/23 0737 MR#: [id number] Acct: [id number] Name: STEPHAN ARAMBULA Rep #:[id number] : 1960 63 From: César Ríos MD PCP: Dr. Naima Estevez, DO Status:[facility] Location: [place] [id number] Subjective Subjective Status post transurethral resection of a very large bladder tumor he to go home with a Lewis catheter to leg bag and large bag. Objective Data Objective Data Vital Signs: Vital Signs Temp Pulse Resp BP Pulse Ox O2 Del Method 98.9 F 73 18 109/55 L 92 Room Air 10/14/23 04:03 10/14/23 04:03 10/14/23 04:03 10/14/23 04:03 10/14/23 04:03 10/14/23 04:03 Oxygen Delivery Method Room Air Weight: 86.2 kg Body Mass Index (BMI) 26.4 Intake & Output: Intake and Output for Last 24 Hours 10/12/23 10/13/23 10/14/23 23:59 23:59 23:59 Intake Total 4376.92 / 4376.92 1758.33 / 1758.33 Output Total 4300 / 4300 2300 / 2300 Balance 76.92 / 76.92 -541.67 / -541.67 10/14/23 0737 <Electronically signed by César Ríos MD> Cosigner Signature (if applicable): CC: ~ Signed [facility] Work Phone: 1(713) 385-749204-03-2024 Discharge summary Author César Ríos [facility] October 13, 2023 8:08am Note Date/Time October 13, 2023 8:09 am [facility] Medical Records Department [address] [place] [address] Instructions for Home/Discharge Instructions 10/13/23 0808 MR#: [id number] Acct: [id number] Name: STEPHAN ARAMBULA Rep #:[id number] : 1960 63 From: César Ríos MD PCP: Dr. Naima Estevez, DO [place] [facility] [place] Discharge Instructions Diet Discharge Diet: No restrictions Activity Discharge Activity: Return to Normal Activity and May Not Drive (while taking narcotic pain medications.) Dressing / Incision Call your doctor if you observe: Fever of 101 or Higher Follow Up Care Please Follow Up With: César Ríos MD When: Call [phone] for an appointment Test Results: Test results from this visit will be discussed in further detail at your follow- up appointment, if applicable. Discharge Plan Admission Primary Reason for Your Visit: Resection of bladder tumor Attending Provider: César Ríos Primary Care Provider: Naima Estevez Discharge Orders/Prescriptions Prescriptions: New ciprofloxacin HCl [Cipro] 500 mg tablet 500 mg PO BID Qty: 10 0RF ibuprofen 600 mg tablet 600 mg PO Q6H PRN (Reason: pain) Qty: 20 0RF phenazopyridine [Pyridium] 100 mg tablet 100 mg PO TID Qty: 15 0RF Continued fluticasone propion-salmeterol [Advair Diskus] 1 PUFF inhaler 1 puff inhalation BID albuterol sulfate [Ventolin HFA] 1 INHALER inhaler 1 - 2 puff inhalation Q4H PRN PRN (Reason: Asthma) bupropion HCl 150 mg tablet extended release 24 hr 150 mg PO DAILY omeprazole 20 mg capsule,delayed release(DR/EC) 20 mg PO DAILY PRN (Reason: acid reflux) Other Ambulatory Orders: 12 Lead EKG (Routine) Timeframe: 20231012 Location: None Selected Ordered By: Dr. Berny Silva Referrals / Follow Up: César Ríos MD [Med Staff - Active Staff] - Naima Estevez DO [Primary Care Provider] - Disposition Disposition (needs filled in before D/C Order can be placed): Home, Self Care 10/13/23807<Electronically signed by César Ríos MD>César Ríos MD CC: Dr. Naima Estevez DO ~ Signed [facility] Work Phone: 1(416) 359-107804-03-2024 History and physical note Author César Ríos [facility] October 13, 2023 8:08am Note Date/Time October 13, 2023 8:08 am [facility] Medical Records Department [address] [place] [address] History & Physical Exam 10/13/23 08 MR#: [id number] Acct: [id number] Name: STEPHAN ARAMBULA Rep #:[id number] : 1960 63 From: César Ríos MD PCP: Dr. Naima Estevez DO Status:[facility] Location: [facility] HPI - General General Date of Service: 10/13/23 Chief Complaint: Bladder cancer HPI Narrative STEPHAN ARAMBULA, is a 63 M who presents for a transurethral resection of a very large bladder tumor in the right lateral wall the bladder [facility] Medical History (Updated 10/11/23 @ 08:24 by Dora Gracia) Alcohol use Anxiety Arthritis Asthma Bladder disease Cancer Depression Heartburn History of stress test Non-smoker Tinnitus Home Medications albuterol sulfate 90 mcg/actuation aerosol inhaler (Ventolin HFA) 1 - 2 puff inhalation Q4H PRN PRN Asthma 08/18/16 [History Last Taken Unknown] fluticasone 250 mcg-salmeterol 50 mcg/dose blistr powdr for inhalation (Advair Diskus) 1 puff inhalation BID 08/18/16 [History Last Taken 08/25/16 05:30] bupropion HCl 150 mg 24 hr tablet, extended release 150 mg PO DAILY mood 10/11/23 [History Last Taken Unknown] omeprazole 20 mg capsule,delayed release 20 mg PO DAILY PRN acid reflux 10/11/23[History Last Taken 10/13/23 05:30] ciprofloxacin HCl 500 mg tablet (Cipro) 500 mg PO BID #10 tabs 10/13/23 [Rx Last Taken Unknown] ibuprofen 600 mg tablet 600 mg PO Q6H PRN pain #20 tabs 10/13/23 [Rx Last Taken Unknown] phenazopyridine 100 mg tablet (Pyridium) 100 mg PO TID #15 tabs 10/13/23 [Rx Last Taken Unknown] Allergy/AdvReac Type Severity Reaction Status Date / Time No Known Allergies Allergy Verified 10/13/23 06:40 Surgical History (Updated 10/11/23 @ 08:11 by Dora Gracia) History of adenoidectomy History of colonoscopy History of shoulder surgery History of tonsillectomy Social History Smoking Status: Never smoker Vital Signs Vital Signs Vital Signs: 10/13/23 06:42 10/13/23 06:42 Temperature 98.3 F Temperature Source Temporal Pulse Rate 84 Respiratory Rate 16 Respiratory Pattern Normal Blood Pressure 106/88 H Blood Pressure Mean 94 Blood Pressure Source Monitor Blood Pressure Position Sitting Blood Pressure Location Left Arm Pulse Ox 98 Oxygen Delivery Method Room Air Weight Weight: 86.183 kg Body Mass Index (BMI) 26.4 10/13/23 0808 <Electronically signed by César Ríos MD> Cosigner Signature (if applicable): CC: Dr. César Ríos MD; Dr. Naima Estevez, DO~ Signed [facility] Work Phone: 1(485) [phone] Procedure [facility] 10-12-2023 Hospital Discharge instructionsAmbulatory Orders* 12 Lead EKG [[facility]] Time Frame: 10/12/23, Location: None Selected [facility] Work Phone: Consult note Author Red Frye [facility] Note Date/Time December 06, 2024 6:04p m [facility] Medical Records Department [address] [place] [address] Anesthesia Postop Eval I 12/06/24 163 MR#: [id number] Acct: [id number] Name: STEPHAN ARAMBULA Rep #:[id number] : 1960 64 From: Red OLIVARES PCP: Dr. Naima Estevez, DO Status:REG SDC Y Race: C Location: [place] [address] Anesthesia: Postop Eval I Current Vital Signs Temperature: 97.9 F Pulse Rate: 83 Blood Pressure: 122/85 Respiratory Rate: 16 Pulse Ox: 95 Oxygen Delivery Method: Room Air Assessment Airway patent: Yes Spontaneous unlabored respirations: Yes Mental status: Awake and Calm nausea: No Vomiting: No Anesthesia Complication: No Fluid Hydration Crystalloid volume administer (ml): 500 Total IV fluid infused: 500 Progress Note Anesthesia document: Postop Eval 1 completed: Yes 12/06/24 163 <Electronically signed by Red Frye CRNA> Date _ Red Frye APARTMENT LOCATOR Cosigner Signature: Date CC: ~ Signed [facility] Work Phone: Evaluation noteNo assessment information available [facility] Work Phone: Reason for referral (narrative)No reason for referral information availableWSelect [facility], [facility] Work Phone: Summary Purpose Family History No Family History Records FoundNo Family History Records Found Advance Directives No Advanced Directives Records Found Advance Directive Response Recorded Date/ Time Advance Directives Yes August 18, 2016 3:52pm Living Will Yes August 18 3:52pm Power of Pen Tester Yes August 18, 2016 3:52pm Advance Directive Response Recorded Date/ Time Advance Directives Yes August 18, 2016 3:52pm Living Will No October 11, 2023 8:12am Power of Pen Tester No October 10 8:12am Advance Directive Response Recorded Date/ Time Advance Directives Yes August 18, 2016 3:52pm Living Will No October 13, 2023 12:24pm Power of Pen Tester No October 12 12:24pm Advance Directive Response Recorded Date/ Time Advance Directives Yes August 18, 2016 3:52pm Living Will No November 09, 2023 3:00pm Power of Pen Tester No November 08 3:00pm Advance Directive Response Recorded Date/ Time Advance Directives Yes August 18, 2016 3:52pm Advance Directive Response Recorded Date/ Time Do you have a [facility] Power of Pen Tester? Yes December 01, 2024 11:29am Advance Directives Yes August 18, 2016 3:52pm Chief Complaint and Reason for Visit Chief Complaint PSA Chief Complaint PSA GROSS HEMATURIA Transurethra Resecection of Bladder Tumor with Wagner Chief Complaint PSA GROSS HEMATURIA PREOP Transurethra Resecection of Bladder Tumor with Wagner Transurethral resection of Bladder Chief Complaint Admit Date Pre-Surgical Testing December 06, 2024 12:3 8pm Chief Complaint Admit Date PREOP December 05, 2024 8:03a m Pre-Surgical Testing December 06, 2024 12:3 8pm SCREENING December 15, 2024 7:01a m URINE January 01, 2025 1:32 pm Chief Complaint Admit Date PREOP December 05, 2024 8:03a m Pre-Surgical Testing December 06, 2024 12:3 8pm SCREENING December 15, 2024 7:01a m CT CALCIUM SCORING December 15, 2024 7:03a m URINE January 01, 2025 1:32 pm CAD January 17, 2025 10:40 am Coronary artery disease January 17, 2025 5 :36pm Additional Source Comments (unrecognized sect ion and content) No Status Records FoundNo Status Records Found INFORMATION SOURCE (unrecogn ized section and content) DATE CREATED AUTHOR 01/05/2018 [facility] DATE CREATED AUTHOR AUTHOR'S ORGANIZ ATION 03/06/2025 [facility] Care Teams (unrecognized sec tion and content) Team Status: Active Member Role Status Dates Dr. Naima Grande MD Family Provider Active Dr. Naima Estevez DO Primary Care Provider Active Team Status: Inactive Member Role Status Dates Dr. Naima Estevez DO Primary Care Provider, Attendin g Provider Active Team Status: Active Member Role Status Dates Dr. Naima Estevez DO Primary Care Provider Active Dr. César Ríos MD Attending Provider, Referr ing Provider Active Team Status: Inactive Member Role Status Dates Dr. Naima Estevez DO Primary Care Provider Active Dr. César Ríos MD Attending Provider, Referr ing Provider Active Team Status: Active Member Role Status Dates Dr. Naima Estevez DO Primary Care Provider Active Dr. César Ríos MD Attending Provider Active Team Status: Inactive Member Role Status Dates Dr. Naima Estevez DO Primary Care Provider Active Dr. César Ríos MD Attending Provider Active Team Status: Inactive Member Role Status Dates Dr. Naima Estevez DO Primary Care Provider Active Dr. César Ríos MD Admit Provid er, Attending Provider, Referring Provider Active Team Status: Active Member Role Status Dates Dr. Naima Estevez DO Primary Care Provider Active Dr. Atif Mooney MD Attending Provider Active Dr. César Ríos MD Referring Provider Active Team Status: Active Member Role Status Dates Dr. Naima Estevez DO Primary Care Provider Active Team Status: Inactive Member Role Status Dates Dr. Naima Estevez DO Primary Care Provider Active Start: November 30, 2024 End: November 30, 2024 Dr. César Ríos MD Attending Provider Active Start: November 30, 2024 End: November 30, 2024 Dr. César Ríos MD Referring Provider Active Start: November 30, 2024 End: November 30, 2024 Team Status: Inactive Member Role Status Dates Dr. Naima Estevez DO Primary Care Provider Active Start: December 06, 2024 End: December 06, 2024 Dr. César Ríos MD Attending Provider Active Start: December 06, 2024 End: December 06, 2024 Dr. César Ríos MD Referring Provider Active Start: December 06, 2024 End: December 06, 2024 Team Status: Active Member Role Status Dates Dr. Naima Estevez DO Primary Care Provider Active Start: December 05, 2024 End: December 05, 2024 Dr. Atif Mooney MD Attending Provider Active Start: December 05, 2024 End: December 05, 2024 Dr. César Ríos MD Referring Provider Active Start: December 05, 2024 End: December 05, 2024 Team Status: Active Member Role Status Dates Dr. Naima Estevez DO Primary Care Provider Active Start: December 15, 2024 Dr. Naima Estevez DO Attending Provider Active Start: December 15, 2024 Dr. Naima Estevez DO Referring Provider Active Start: December 15, 2024 Team Status: Inactive Member Role Status Dates Dr. Naima Estevez DO Primary Care Provider Active Start: January 01, 2025 End: January 01, 2025 Dr. César Ríos MD Attending Provider Active Start: January 01, 2025 End: January 01, 2025 Dr. César Ríos MD Referring Provider Active Start: January 01, 2025 End: January 01, 2025 Team Status: Active Member Role/Relationship Status Dates Dr. Naima Estevez DO Primary Care Provider Active Team Status: Inactive Member Role/Relationship Status Dates Dr. Naima Estevez DO Primary Care Provider Active Start: November 30, 2024 End: November 30, 2024 Dr. César Ríos MD Attending Provider Active Start: November 30, 2024 End: November 30, 2024 Dr. César Ríos MD Referring Provider Active Start: November 30, 2024 End: November 30, 2024 Team Status: Active Member Role/Relationship Status Dates Dr. Naima Estevez DO Primary Care Provider Active Start: December 05, 2024 End: December 05, 2024 Dr. Atif Mooney MD Attending Provider Active Start: December 05, 2024 End: December 05, 2024 Dr. César Ríos MD Referring Provider Active Start: December 05, 2024 End: December 05, 2024 Team Status: Inactive Member Role/Relationship Status Dates Dr. Naiam Estevez DO Primary Care Provider Active Start: December 06, 2024 End: December 06, 2024 Dr. César Ríos MD Attending Provider Active Start: December 06, 2024 End: December 06, 2024 Dr. César Ríos MD Referring Provider Active Start: December 06, 2024 End: December 06, 2024 Team Status: Active Member Role/Relationship Status Dates Dr. Naima Estevez DO Primary Care Provider Active Start: December 15, 2024 Dr. Naima Estevez DO Attending Provider Active Start: December 15, 2024 Dr. Naima Estevez DO Referring Provider Active Start: December 15, 2024 Team Status: Active Member Role/Relationship Status Dates Dr. Naima Estevez DO Primary Care Provider Active Start: December 15, 2024 Dr. Álvaro Aparicio MD Attending Provider Active S tart: December 15, 2024 Dr. Álvaro Aparicio MD Referring Provider Active S tart: December 15, 2024 Team Status: Inactive Member Role/Relationship Status Dates Dr. Naima Estevez DO Primary Care Provider Active Start: January 01, 2025 End: January 01, 2025 Dr. César Ríos MD Attending Provider Active Start: January 01, 2025 End: January 01, 2025 Dr. César Ríos MD Referring Provider Active Start: January 01, 2025 End: January 01, 2025 Team Status: Inactive Member Role/Relationship Status Dates Dr. Naima Estevez DO Primary Care Provider Active Start: January 17, 2025 End: January 17, 2025 Dr. Naima Estevez DO Attending Provider Active Start: January 17, 2025 End: January 17, 2025 Dr. Naima Estevez DO Referring Provider Active Start: January 17, 2025 End: January 17, 2025 Team Status: Active Member Role/Relationship Status Dates Dr. Naima Estevez DO Primary Care Provider Active Start: January 17, 2025 Dr. Naima Estevez DO Referring Provider Active Start: January 17, 2025 Dr. Naima Estevez , DO Other Provider Active Sta rt: January 17, 2025 Dr. Álvaro Aparicio MD Attending Provider Active S tart: January 17, 2025 Goals (unrecognized section and content) Goals may be documented in a n alternate sectionGoals may be documented in an alternate sectionGoals may be documented in an alternate section FOR RECORDS PERTAINING TO PATIENTS WHO ARE OR HAVE BEEN ENROLLED IN A CHEMICAL DEPENDENCY/SUBSTANCEABUSE PROGRAM, SOME INFORMATION MAY BE OMITTED. This clinical summary was aggregated from multiple sources. Caution should be exercised in using it in the provision of clinical care. This summary normalizes information from multiple sources, and as a consequence, information in this document may materially change the coding, format and clinical context of patient data. In addition, data may be omitted in some cases. CLINICAL DECISIONS SHOULD BE BASED ON THE PRIMARY CLINICAL RECORDS. [employer] provides no warranty or guarantee of the accuracy or completeness of information in this document.
--- NOTE | 2025-03-06 07:30 | PET_ITS ---
PROCEDURE: PET/CT TUMOR BASE -THIGH INIT 03/06/2025 REASON FOR EXAM: 65 y/o M with PULMONARY NODULE right lower lobe lateral basal, seen on CT of 12/15/2024. TECHNIQUE: Following the intravenous administration of radionucleotide, image acquisition on a dedicated PET/CT unit was performed at one hour post injection. A preliminary CT study encompassing the Skull base, neck, chest, abdomen, pelvis, and proximal thighs was performed for purposes of attenuation correction and anatomic localization. The proximal thighs were also included. The patient's blood glucose level was 96 mg/dL (allowable range: 50-180 mg/dL). RADIOPHARMACEUTICAL: 10.908 mCi 18F-FDG (Fluorodeoxyglucose F18) IV was injected into he patient. RADIATION DOSE SUMMARY: Effective Dose: Approximately 7 mSv for a standard whole-body PET scan Organ Doses: Varies by organ, with higher doses typically to the bladder, liver, and brain COMPARISON: COMPARISON FROM CT, PET OR OTHER PERTINENT EXAMS: Chest CT of 12/15/2024.. FINDINGS: Physiologic uptake: There may be expected metabolic uptake within the brain, tongue and floor of the mouth and larynx/vocal cords, heart, terrence (many normal individuals have hilar uptake in less than 3 nodes with mildly avid hilar nodes less than 2.7 SUV), liver and spleen, system, and GI tract and symmetric muscle uptake. FDG AVID AND NON-AVID LESIONS. Reported avid SUV values (g/mL*) are maximum SUV. NECK: There are no significant neck abnormalities. CHEST: Chest wall- There are no significant chest wall abnormalities. Axilla- There are no significant axillary abnormalities. Lung parenchyma- The noted pulmonary nodule lateral basal portion of the right lower lobe seen on CT of 12/15/2024, appears diminished in size. No focus of hypermetabolic activity is seen. Mediastinum- There are no significant hilar or mediastinal adenopathy. Pleura- There are no significant pleural abnormalities. ABDOMEN: Stomach- No significant abnormalities. Liver- No significant abnormalities. Spleen- No significant abnormalities. Pancrease- No significant abnormalities. Kidneys- No significant abnormalities. Bowel- Normal bowel activity. Spine- No significant abnormalities. PELVIS: At least moderate sigmoid and descending colon diverticulosis is seen. Bowel- Normal physiologic bowel activity is identified. Masses- There are no pelvic masses. Bones- Prominent degenerative changes are seen throughout the spine. With the use of bone window settings, there are no osteolytic or osteoblastic lesions. There are no FDG avid lesions within the visualized portion of the axial skeleton. PET/PET/CT Tumor Base -Thigh Init IMPRESSION: FDG avid- No significant avid lesions. Interval decrease in size in noted right lower lobe nodule. Other: Prominent sigmoid and descending colon diverticulosis. Please note the low-dose CT scan was performed to facilitate PET image reconstr uction and anatomic localization and does not replace a diagnostic CT. Any diagnostic CT requested and performed at the time of the PET will be reported separately. Reading Location: [place] [id number]
== END | disposition home or self-care (01) ==
LOC: ONC 06:41
PROVIDERS: PCP Family Medicine; Referring Provider Family Medicine; Visit Provider Family Medicine
DX: R91.1 Solitary pulmonary nodule (principal); Z85.51 Personal history of malignant neoplasm of bladder
CPT/HCPCS: 78815; A9552